=== PATIENT | female | born 1990 | race Caucasian/White ===

== ENCOUNTER 2019-05-13 15:54 | Inpatient (IN) | payer MEDICAID ==
[~2019-05-13] VITALS: Ht 144.8 cm; Wt 69.9 kg
[~2019-05-13 15:54] MED LIST: BUSP10TA23 PO; DIVA-78 PO; RISP3TAB44 PO
[2019-05-13 17:39] LABS: BASOPHILS % (AUTO) 0.6 % (0.0-2.0); EOSINOPHILS % (AUTO) 1.1 % (1.0-6.0); HEMATOCRIT 32.7 % (36-46); HEMOGLOBIN 10.5 g/dL (12.0-16.0); LYMPHOCYTES # (AUTO) 1.4 K/uL (1.0-4.8); LYMPHOCYTES % (AUTO) 29.3 % (22.0-44.0); MEAN CORPUSCULAR HEMOGLOBIN 26.5 pg (26.0-34.0); MEAN CORPUSCULAR VOLUME 83 fL (80-100); MONOCYTES # (AUTO) 0.4 K/uL (0.1-1.0); MONOCYTES % (AUTO) 8.8 % (2.0-9.0); NEUTROPHILS # (AUTO) 2.9 K/uL (1.8-7.7); NEUTROPHILS % (AUTO) 60.2 % (40.0-70.0); PLATELET COUNT (AUTO) 207 K/uL (150-450); RED BLOOD CELL COUNT(AUTO) 3.96 MIL/uL (4.00-5.20); RED CELL DISTRIBUTION WIDTH 15.3 % (11.5-14.5)
[2019-05-13 17:45] LABS: APPEARANCE,URINE CLOUDY (CLEAR); BILIRUBIN,URINE NEGATIVE (NEGATIVE); GLUCOSE, URINE (UA) NEGATIVE (NEGATIVE); KETONES,URINE NEGATIVE (NEGATIVE); LEUKOCYTE ESTERASE ,URINE NEGATIVE (NEGATIVE); NITRATE,URINE NEGATIVE (NEGATIVE); OCCULT BLOOD,URINE LARGE (NEGATIVE); PH,URINE 5.5 (5.0-8.0); PROTEIN,URINE NEGATIVE (NEGATIVE); UROBILINOGEN,URINE 0.2 mg/dL (<=1.0)
[2019-05-13 17:47] LABS: ANION GAP 5 mmol/L (8-16); CARBON DIOXIDE 29 mmol/L (22-29); CHLORIDE 104 mmol/L (98-107); CREATININE 0.74 mg/dL (0.60-1.30); GLOMERULAR FILTR. RATE CALC > 60 mL/min (>60); GLUCOSE,RANDOM 86 mg/dL (70-110); POTASSIUM 4.1 mmol/L (3.5-5.1); SODIUM SERUM 138 mmol/L (136-145); UREA NITROGEN, BLOOD 14 mg/dL (7-18)
[2019-05-13 17:52] LABS: ALANINE AMINOTRANSFERASE 10 U/L (12-78); ALBUMIN 3.9 g/dL (3.4-5.0); ALKALINE PHOSPHATASE 32 U/L (46-116); ASPARTATE AMINOTRANSFERASE 11 U/L (15-37); TOTAL PROTEIN, SERUM 6.7 g/dL (6.4-8.2)
[2019-05-13 17:54] LABS: BACTERIA,URINE Few /HPF (None Seen); SQUAMOUS EPITHELIAL CELL,UR Few /LPF (None Seen)
[2019-05-13 17:59] LABS: AMPHET/METH SCREEN,URINE NEGATIVE (NEGATIVE); BARBITURATE SCREEN, URINE NEGATIVE (NEGATIVE); BENZODIAZEPINES SCREEN,URINE NEGATIVE (NEGATIVE); CANNABINOID SCREEN,URINE NEGATIVE (NEGATIVE); COCAINE SCREEN,URINE NEGATIVE (NEGATIVE); METHADONE SCREEN, URINE NEGATIVE (NEGATIVE); OPIATE SCREEN,URINE NEGATIVE (NEGATIVE)
[2019-05-13 18:01] LABS: PHENCYCLIDINE SCREEN,URINE NEGATIVE (NEGATIVE)
[2019-05-13] MEDS ORDERED: SODIUM CHLORIDE 0.9% 2,000 ML IV ONE (20:00)
[2019-05-13] MEDS ORDERED: ZOLPIDEM TARTRATE 10 MG TABLET PO PRN (20:45)
[2019-05-13] MEDS ORDERED: HALOPERIDOL 5 MG TABLET PO PRN (20:45)
[2019-05-14 01:07] VITALS: BP 100/55
[2019-05-14 05:36] VITALS: BP 100/55
[2019-05-14 08:19] VITALS: BP 114/69
[2019-05-14] MEDS: RisperiDONE 3 MG TABLET PO SCH ×2 (10:15→16:51)
[2019-05-14] MEDS: DIVALPROEX SODIUM 500 MG DR TABLET PO SCH ×2 (10:15→16:51)
[2019-05-14] MEDS: BusPIRone HCL 10 MG TABLET PO SCH ×2 (10:15→16:51)
[2019-05-14 16:08] VITALS: BP 116/72
[2019-05-15 06:00] VITALS: BP 123/76
[2019-05-15] MEDS: BusPIRone HCL 10 MG TABLET PO SCH ×2 (08:10→16:54)
[2019-05-15] MEDS: RisperiDONE 3 MG TABLET PO SCH ×2 (08:10→16:54)
[2019-05-15] MEDS: DIVALPROEX SODIUM 500 MG DR TABLET PO SCH ×2 (08:11→16:54)
[2019-05-15 08:14] VITALS: BP 100/54
[2019-05-15 16:02] VITALS: BP 110/64
[2019-05-16 06:42] VITALS: BP 108/70
[2019-05-16 08:17] VITALS: BP 106/71
[2019-05-16] MEDS: BusPIRone HCL 10 MG TABLET PO SCH ×3 (09:00→16:00)
[2019-05-16] MEDS: DIVALPROEX SODIUM 500 MG DR TABLET PO SCH ×3 (09:00→16:00)
[2019-05-16] MEDS: RisperiDONE 3 MG TABLET PO SCH ×3 (09:00→16:00)
[2019-05-16 16:02] VITALS: BP 114/77
[2019-05-16] MEDS: LORazepam 2 MG TABLET PO PRN (16:58)
[2019-05-17 06:49] VITALS: BP 120/75
[2019-05-17 08:13] VITALS: BP 100/61
[2019-05-17] MEDS: RisperiDONE 3 MG TABLET PO SCH ×2 (09:08→17:00)
[2019-05-17] MEDS: BusPIRone HCL 10 MG TABLET PO SCH ×2 (09:08→17:00)
[2019-05-17] MEDS: DIVALPROEX SODIUM 500 MG DR TABLET PO SCH ×2 (09:08→17:00)
[2019-05-17 09:25] VITALS: BP 110/70
[2019-05-17] MEDS: LORazepam 2 MG TABLET PO PRN (09:28)
[2019-05-18 05:57] VITALS: BP 107/73
[2019-05-18] MEDS ORDERED: CloNIDine HCL 0.1 MG TABLET PO PRN (07:00)
[2019-05-18] MEDS ORDERED: PETROLATUM,WHITE 28 GM JELLY TP PRN (07:00)
[2019-05-18] MEDS ORDERED: ONDANSETRON HCL 4 MG TABLET PO PRN (07:00)
[2019-05-18] MEDS ORDERED: LOPERAMIDE HCL 2 MG CAPSULE PO PRN (07:00)
[2019-05-18] MEDS ORDERED: IBUPROFEN 400 MG TABLET PO PRN (07:00)
[2019-05-18] MEDS ORDERED: DOCUSATE SODIUM 100 MG CAPSULE PO PRN (07:00)
[2019-05-18] MEDS ORDERED: NICOTINE 14 MG/24 HOUR PATCH TD PRN (07:00)
[2019-05-18] MEDS ORDERED: ACETAMINOPHEN 325 MG TABLET PO PRN (07:00)
[2019-05-18] MEDS ORDERED: GuaiFENesin/D-METHORPHAN [SUGAR-FREE] 200-20MG/10 ML SYRUP UDCUP PO PRN (07:00)
[2019-05-18] MEDS ORDERED: MAGNESIUM HYDROXIDE SUSPENSION 30 ML UDCUP PO PRN (07:00)
[2019-05-18] MEDS ORDERED: ALBUTEROL SULFATE HFA 90 MCG/PUFF 8 GM INHALER IH PRN (07:00)
[2019-05-18] MEDS ORDERED: MAG HYDROX/AL HYDROX/SIMETH ES 30 ML SUSPENSION UDCUP PO PRN (07:00)
[2019-05-18] MEDS: BusPIRone HCL 10 MG TABLET PO SCH ×2 (08:42→17:06)
[2019-05-18] MEDS: DIVALPROEX SODIUM 500 MG DR TABLET PO SCH ×2 (08:43→17:06)
[2019-05-18] MEDS: RisperiDONE 3 MG TABLET PO SCH ×2 (08:43→17:06)
[2019-05-18] MEDS: LORazepam 2 MG TABLET PO PRN ×2 (08:43→16:15)
[2019-05-18 16:07] VITALS: BP 110/70
[2019-05-19] VITALS: BP 123/89
[2019-05-19 00:36] VITALS: BP 123/89
[2019-05-19] MEDS: BusPIRone HCL 10 MG TABLET PO SCH ×2 (08:11→09:38)
[2019-05-19] MEDS: RisperiDONE 3 MG TABLET PO SCH ×2 (08:11→09:39)
[2019-05-19] MEDS: DIVALPROEX SODIUM 500 MG DR TABLET PO SCH ×2 (08:12→09:38)
[2019-05-19 08:18] VITALS: BP 101/62
[2019-05-19] MEDS: LORazepam 2 MG TABLET PO PRN (08:59)
== END 2019-05-19 15:49 | disposition home or self-care (01) | DRG 750 ==
LOC: EMS 15:56 → B3A 20:56
DX: F25.1 Schizoaffective disorder, depressive type (principal); I95.9 Hypotension, unspecified; R45.851 Suicidal ideations; E86.0 Dehydration; D64.9 Anemia, unspecified; K59.00 Constipation, unspecified; F32.9 Major depressive disorder, single episode, unspecified; F41.9 Anxiety disorder, unspecified; R31.9 Hematuria, unspecified; Z88.0 Allergy status to penicillin; Z79.899 Other long term (current) drug therapy
CPT/HCPCS: G0480; J7030

== ENCOUNTER 2019-05-20 08:43 | Inpatient (IN) | payer MEDICAID ==
[~2019-05-20] VITALS: Ht 162.6 cm; Wt 68.9 kg
[2019-05-20] MEDS ORDERED: ZOLPIDEM TARTRATE 10 MG TABLET PO PRN (11:00)
[2019-05-20 11:28] LABS: BASOPHILS % (AUTO) 0.7 % (0.0-2.0); EOSINOPHILS % (AUTO) 0.2 % (1.0-6.0); HEMATOCRIT 35.3 % (36-46); HEMOGLOBIN 11.1 g/dL (12.0-16.0); LYMPHOCYTES # (AUTO) 1.3 K/uL (1.0-4.8); LYMPHOCYTES % (AUTO) 23.9 % (22.0-44.0); MEAN CORPUSCULAR HEMOGLOBIN 26.4 pg (26.0-34.0); MEAN CORPUSCULAR HGB CONC 31.6 G/dL (31.0-37.0); MEAN CORPUSCULAR VOLUME 84 fL (80-100); MONOCYTES # (AUTO) 0.4 K/uL (0.1-1.0); MONOCYTES % (AUTO) 7.1 % (2.0-9.0); NEUTROPHILS # (AUTO) 3.8 K/uL (1.8-7.7); NEUTROPHILS % (AUTO) 68.1 % (40.0-70.0); PLATELET COUNT (AUTO) 198 K/uL (150-450); RED BLOOD CELL COUNT(AUTO) 4.21 MIL/uL (4.00-5.20); RED CELL DISTRIBUTION WIDTH 15.2 % (11.5-14.5)
[2019-05-20 11:36] LABS: ANION GAP 9 mmol/L (8-16); CALCIUM, TOTAL 8.7 mg/dL (8.8-10.5); CARBON DIOXIDE 26 mmol/L (22-29); CHLORIDE 103 mmol/L (98-107); CREATININE 0.62 mg/dL (0.60-1.30); GLOMERULAR FILTR. RATE CALC > 60 mL/min (>60); GLUCOSE,RANDOM 88 mg/dL (70-110); POTASSIUM 4.6 mmol/L (3.5-5.1); SODIUM SERUM 138 mmol/L (136-145); UREA NITROGEN, BLOOD 11 mg/dL (7-18)
[2019-05-20 11:43] LABS: ALANINE AMINOTRANSFERASE 3 U/L (12-78); ALBUMIN 3.6 g/dL (3.4-5.0); ALKALINE PHOSPHATASE 27 U/L (46-116); ASPARTATE AMINOTRANSFERASE 6 U/L (15-37); BILIRUBIN,TOTAL 0.7 mg/dL (0.1-1.0); CREATINE KINASE, TOTAL ONLY 32 U/L (26-192); TOTAL PROTEIN, SERUM 6.4 g/dL (6.4-8.2)
[2019-05-20 14:36] VITALS: BP 100/60
[2019-05-20] MEDS ORDERED: ONDANSETRON HCL 4 MG TABLET PO PRN (14:45)
[2019-05-20] MEDS ORDERED: GuaiFENesin/D-METHORPHAN [SUGAR-FREE] 200-20MG/10 ML SYRUP UDCUP PO PRN (14:45)
[2019-05-20] MEDS ORDERED: MAGNESIUM HYDROXIDE SUSPENSION 30 ML UDCUP PO PRN (14:45)
[2019-05-20] MEDS ORDERED: ACETAMINOPHEN 325 MG TABLET PO PRN (14:45)
[2019-05-20] MEDS ORDERED: MAG HYDROX/AL HYDROX/SIMETH ES 30 ML SUSPENSION UDCUP PO PRN (14:45)
[2019-05-20] MEDS ORDERED: IBUPROFEN 400 MG TABLET PO PRN (14:45)
[2019-05-20] MEDS ORDERED: PETROLATUM,WHITE 28 GM JELLY TP PRN (14:45)
[2019-05-20] MEDS ORDERED: CloNIDine HCL 0.1 MG TABLET PO PRN (14:45)
[2019-05-20] MEDS ORDERED: NICOTINE 14 MG/24 HOUR PATCH TD PRN (14:45)
[2019-05-20] MEDS ORDERED: LOPERAMIDE HCL 2 MG CAPSULE PO PRN (14:45)
[2019-05-20] MEDS ORDERED: ALBUTEROL SULFATE HFA 90 MCG/PUFF 8 GM INHALER IH PRN (14:45)
[2019-05-20] MEDS ORDERED: DOCUSATE SODIUM 100 MG CAPSULE PO PRN (14:45)
[2019-05-20 16:09] VITALS: BP 108/69
[2019-05-20] MEDS: HALOPERIDOL 5 MG TABLET PO PRN (16:55)
[2019-05-20] MEDS: LORazepam 2 MG TABLET PO PRN (16:55)
[2019-05-21 05:30] VITALS: BP 110/72
[2019-05-21 08:08] VITALS: BP 109/66
[2019-05-21] MEDS: LORazepam 2 MG TABLET PO PRN (09:46)
[2019-05-21] MEDS: RisperiDONE 3 MG TABLET PO SCH ×2 (10:15→16:14)
[2019-05-21] MEDS: BusPIRone HCL 10 MG TABLET PO SCH ×2 (10:15→16:14)
[2019-05-21] MEDS: DIVALPROEX SODIUM 500 MG DR TABLET PO SCH ×2 (10:16→16:14)
[2019-05-21 16:08] VITALS: BP 105/53
[2019-05-22 07:39] LABS: BASOPHILS % (AUTO) 0.5 % (0.0-2.0); EOSINOPHILS % (AUTO) 1.1 % (1.0-6.0); HEMATOCRIT 37.6 % (36-46); HEMOGLOBIN 11.8 g/dL (12.0-16.0); LYMPHOCYTES # (AUTO) 1.4 K/uL (1.0-4.8); LYMPHOCYTES % (AUTO) 32.7 % (22.0-44.0); MEAN CORPUSCULAR HEMOGLOBIN 26.4 pg (26.0-34.0); MEAN CORPUSCULAR HGB CONC 31.3 G/dL (31.0-37.0); MEAN CORPUSCULAR VOLUME 84 fL (80-100); MONOCYTES # (AUTO) 0.3 K/uL (0.1-1.0); NEUTROPHILS # (AUTO) 2.6 K/uL (1.8-7.7); NEUTROPHILS % (AUTO) 58.7 % (40.0-70.0); PLATELET COUNT (AUTO) 160 K/uL (150-450); RED BLOOD CELL COUNT(AUTO) 4.46 MIL/uL (4.00-5.20); RED CELL DISTRIBUTION WIDTH 15.3 % (11.5-14.5)
[2019-05-22 07:45] LABS: HEMOGLOBIN A1C 4.9 % (4.5-6.2)
[2019-05-22 08:00] LABS: ALANINE AMINOTRANSFERASE 7 U/L (12-78); ALBUMIN 3.6 g/dL (3.4-5.0); ALKALINE PHOSPHATASE 31 U/L (46-116); ANION GAP 8 mmol/L (8-16); ASPARTATE AMINOTRANSFERASE 9 U/L (15-37); BILIRUBIN,TOTAL 0.5 mg/dL (0.1-1.0); CALCIUM, TOTAL 8.7 mg/dL (8.8-10.5); CARBON DIOXIDE 28 mmol/L (22-29); CHLORIDE 102 mmol/L (98-107); CHOL/HDL RATIO 2.6 (3.9-5.7); CHOLESTEROL 118 mg/dL (131-200); CREATININE 0.58 mg/dL (0.60-1.30); GLOMERULAR FILTR. RATE CALC > 60 mL/min (>60); GLUCOSE,RANDOM 84 mg/dL (70-110); HDL CHOLESTEROL 45 mg/dL (40-60); LDL CHOL (CALC.) 67 mg/dL (0-130); POTASSIUM 4.6 mmol/L (3.5-5.1); SODIUM SERUM 138 mmol/L (136-145); THYROID STIMULATING HORMONE 2.19 uIU/mL (0.36-3.74); TOTAL PROTEIN, SERUM 6.3 g/dL (6.4-8.2); TRIGLYCERIDES 30 mg/dL (15-150); UREA NITROGEN, BLOOD 12 mg/dL (7-18)
[2019-05-22 08:07] VITALS: BP 102/66
[2019-05-22] MEDS: BusPIRone HCL 10 MG TABLET PO SCH ×2 (08:50→16:15)
[2019-05-22] MEDS: DIVALPROEX SODIUM 500 MG DR TABLET PO SCH ×2 (08:50→16:15)
[2019-05-22] MEDS: RisperiDONE 3 MG TABLET PO SCH ×2 (08:50→16:15)
[2019-05-22] MEDS: LORazepam 2 MG TABLET PO PRN ×2 (09:53→17:29)
[2019-05-22 16:05] VITALS: BP 121/86
[2019-05-22] MEDS: HALOPERIDOL 5 MG TABLET PO PRN (17:29)
[2019-05-23 06:31] VITALS: BP 118/78
[2019-05-23 08:18] VITALS: BP 114/66
[2019-05-23] MEDS: DIVALPROEX SODIUM 500 MG DR TABLET PO SCH ×2 (09:14→16:09)
[2019-05-23] MEDS: BusPIRone HCL 10 MG TABLET PO SCH ×2 (09:14→16:08)
[2019-05-23] MEDS: RisperiDONE 3 MG TABLET PO SCH ×2 (09:15→16:08)
[2019-05-23] MEDS: LORazepam 2 MG TABLET PO PRN (11:55)
[2019-05-23] MEDS: CITALOPRAM HYDROBROMIDE 10 MG TABLET PO SCH (11:55)
[2019-05-23 16:02] VITALS: BP 120/68
[2019-05-24] MEDS: CITALOPRAM HYDROBROMIDE 10 MG TABLET PO SCH (09:00)
[2019-05-24] MEDS: BusPIRone HCL 10 MG TABLET PO SCH ×2 (09:00→16:00)
[2019-05-24] MEDS: RisperiDONE 3 MG TABLET PO SCH ×2 (09:00→16:00)
[2019-05-24] MEDS: DIVALPROEX SODIUM 500 MG DR TABLET PO SCH ×2 (09:00→16:00)
[2019-05-24 09:25] VITALS: BP 102/62
[2019-05-24 16:04] VITALS: BP 110/70
[2019-05-25 07:09] VITALS: BP 117/65
[2019-05-25 08:20] VITALS: BP 107/62
[2019-05-25] MEDS: RisperiDONE 3 MG TABLET PO SCH ×2 (09:40→16:21)
[2019-05-25] MEDS: CITALOPRAM HYDROBROMIDE 10 MG TABLET PO SCH (09:40)
[2019-05-25] MEDS: BusPIRone HCL 10 MG TABLET PO SCH ×2 (09:40→16:21)
[2019-05-25] MEDS: DIVALPROEX SODIUM 500 MG DR TABLET PO SCH ×2 (09:40→16:21)
[2019-05-25 16:04] VITALS: BP 106/65
[2019-05-25] MEDS: LORazepam 2 MG TABLET PO PRN (16:21)
[2019-05-25] MEDS: HALOPERIDOL 5 MG TABLET PO PRN (16:40)
[2019-05-26 06:53] VITALS: BP 112/64
[2019-05-26 08:12] VITALS: BP 106/65
[2019-05-26] MEDS: BusPIRone HCL 10 MG TABLET PO SCH ×2 (09:00→16:39)
[2019-05-26] MEDS: DIVALPROEX SODIUM 500 MG DR TABLET PO SCH ×2 (09:00→16:39)
[2019-05-26] MEDS: CITALOPRAM HYDROBROMIDE 10 MG TABLET PO SCH (09:00)
[2019-05-26] MEDS: RisperiDONE 3 MG TABLET PO SCH ×2 (09:00→16:39)
[2019-05-26 16:08] VITALS: BP 106/64
[2019-05-26] MEDS: LORazepam 2 MG TABLET PO PRN (16:39)
[2019-05-26] MEDS: HALOPERIDOL 5 MG TABLET PO PRN (16:39)
[2019-05-27 02:37] VITALS: BP 112/82
[2019-05-27 08:17] VITALS: BP 106/63
[2019-05-27 09:45] VITALS: BP 110/72
[2019-05-27] MEDS: BusPIRone HCL 10 MG TABLET PO SCH ×2 (09:47→16:43)
[2019-05-27] MEDS: LORazepam 2 MG TABLET PO PRN (09:47)
[2019-05-27] MEDS: DIVALPROEX SODIUM 500 MG DR TABLET PO SCH ×2 (09:47→16:42)
[2019-05-27] MEDS: CITALOPRAM HYDROBROMIDE 10 MG TABLET PO SCH (09:47)
[2019-05-27] MEDS: RisperiDONE 3 MG TABLET PO SCH ×2 (09:47→16:42)
[2019-05-27 16:05] VITALS: BP 100/67
[2019-05-27 16:37] VITALS: BP 102/56
[2019-05-28 06:26] VITALS: BP 110/68
[2019-05-28 08:06] VITALS: BP 106/71
[2019-05-28] MEDS: RisperiDONE 3 MG TABLET PO SCH ×2 (09:31→16:13)
[2019-05-28] MEDS: CITALOPRAM HYDROBROMIDE 10 MG TABLET PO SCH (09:31)
[2019-05-28] MEDS: BusPIRone HCL 10 MG TABLET PO SCH ×2 (09:31→16:13)
[2019-05-28] MEDS: DIVALPROEX SODIUM 500 MG DR TABLET PO SCH ×2 (09:31→16:13)
[2019-05-28] MEDS: LORazepam 2 MG TABLET PO PRN (10:13)
[2019-05-28] MEDS ORDERED: CITA10TA68 PO (14:27)
[2019-05-28 16:07] VITALS: BP 100/67
== END 2019-05-28 16:50 | disposition home or self-care (01) | DRG 750 ==
LOC: EMS 08:44 → B3A 12:17
PROVIDERS: ADMIT Psychiatry & Neurology Psychiatry
DX: F25.1 Schizoaffective disorder, depressive type (principal); R45.851 Suicidal ideations; F70 Mild intellectual disabilities; D64.9 Anemia, unspecified; K59.00 Constipation, unspecified; D72.819 Decreased white blood cell count, unspecified; Z79.899 Other long term (current) drug therapy; Z88.0 Allergy status to penicillin
CPT/HCPCS: 83036; 84443; 87081; G0480

== ENCOUNTER 2019-06-01 17:00 | Inpatient (IN) | payer MEDICAID ==
[~2019-06-01] VITALS: Ht 162.6 cm; Wt 69.2 kg
[~2019-06-01 17:00] MED LIST changes: +CITA10TA68 PO
[2019-06-01 18:57] LABS: AMPHET/METH SCREEN,URINE NEGATIVE (NEGATIVE); BARBITURATE SCREEN, URINE NEGATIVE (NEGATIVE); BENZODIAZEPINES SCREEN,URINE NEGATIVE (NEGATIVE); CANNABINOID SCREEN,URINE NEGATIVE (NEGATIVE); COCAINE SCREEN,URINE NEGATIVE (NEGATIVE); METHADONE SCREEN, URINE NEGATIVE (NEGATIVE); OPIATE SCREEN,URINE NEGATIVE (NEGATIVE)
[2019-06-01 19:04] LABS: PHENCYCLIDINE SCREEN,URINE NEGATIVE (NEGATIVE)
[2019-06-01 19:13] LABS: BASOPHILS % (AUTO) 0.6 % (0.0-2.0); EOSINOPHILS % (AUTO) 0.6 % (1.0-6.0); HEMATOCRIT 34.9 % (36-46); HEMOGLOBIN 11.1 g/dL (12.0-16.0); LYMPHOCYTES # (AUTO) 1.3 K/uL (1.0-4.8); LYMPHOCYTES % (AUTO) 20.6 % (22.0-44.0); MEAN CORPUSCULAR HEMOGLOBIN 26.9 pg (26.0-34.0); MEAN CORPUSCULAR HGB CONC 31.8 G/dL (31.0-37.0); MEAN CORPUSCULAR VOLUME 85 fL (80-100); MONOCYTES # (AUTO) 0.7 K/uL (0.1-1.0); MONOCYTES % (AUTO) 12.1 % (2.0-9.0); NEUTROPHILS # (AUTO) 4.1 K/uL (1.8-7.7); NEUTROPHILS % (AUTO) 66.1 % (40.0-70.0); PLATELET COUNT (AUTO) 163 K/uL (150-450); RED BLOOD CELL COUNT(AUTO) 4.12 MIL/uL (4.00-5.20); RED CELL DISTRIBUTION WIDTH 15.2 % (11.5-14.5)
[2019-06-01 19:23] LABS: ANION GAP 9 mmol/L (8-16); CALCIUM, TOTAL 9.3 mg/dL (8.8-10.5); CARBON DIOXIDE 26 mmol/L (22-29); CHLORIDE 104 mmol/L (98-107); CREATININE 0.69 mg/dL (0.60-1.30); GLOMERULAR FILTR. RATE CALC > 60 mL/min (>60); GLUCOSE,RANDOM 103 mg/dL (70-110); POTASSIUM 4.2 mmol/L (3.5-5.1); SODIUM SERUM 139 mmol/L (136-145); UREA NITROGEN, BLOOD 15 mg/dL (7-18)
[2019-06-01 19:34] LABS: ALANINE AMINOTRANSFERASE 8 U/L (12-78); ALBUMIN 3.6 g/dL (3.4-5.0); ALKALINE PHOSPHATASE 30 U/L (46-116); ASPARTATE AMINOTRANSFERASE 8 U/L (15-37); BILIRUBIN,TOTAL 0.3 mg/dL (0.1-1.0); HCG,QUANTITATIVE < 1 mIU/mL (0-6); TOTAL PROTEIN, SERUM 6.5 g/dL (6.4-8.2); VALPROIC ACID 51 mcg/mL (50-100)
[2019-06-01 22:40] VITALS: BP 106/66
[2019-06-02 06:56] VITALS: BP 110/64
[2019-06-02 08:08] VITALS: BP 100/59
[2019-06-02 09:00] VITALS: BP 110/74
[2019-06-02] MEDS: LORazepam 2 MG TABLET PO PRN ×2 (09:00→16:11)
[2019-06-02] MEDS: RisperiDONE 3 MG TABLET PO SCH ×2 (10:46→20:30)
[2019-06-02] MEDS: BusPIRone HCL 10 MG TABLET PO SCH ×2 (10:46→20:30)
[2019-06-02] MEDS: CITALOPRAM HYDROBROMIDE 10 MG TABLET PO SCH (10:46)
[2019-06-02] MEDS: DIVALPROEX SODIUM 500 MG DR TABLET PO SCH ×2 (10:47→20:30)
[2019-06-02 16:10] VITALS: BP 97/63
[2019-06-03 08:10] VITALS: BP 131/64
[2019-06-03 08:33] LABS: CHOL/HDL RATIO 2.8 (3.9-5.7)
[2019-06-03] MEDS: BusPIRone HCL 10 MG TABLET PO SCH ×2 (08:49→20:24)
[2019-06-03] MEDS: RisperiDONE 3 MG TABLET PO SCH ×2 (08:50→20:24)
[2019-06-03] MEDS: DIVALPROEX SODIUM 500 MG DR TABLET PO SCH ×2 (08:50→20:24)
[2019-06-03] MEDS: CITALOPRAM HYDROBROMIDE 10 MG TABLET PO SCH (08:50)
[2019-06-03 16:08] VITALS: BP 119/71
[2019-06-03] MEDS: HALOPERIDOL 5 MG TABLET PO PRN (16:31)
[2019-06-03] MEDS: LORazepam 2 MG TABLET PO PRN (16:31)
[2019-06-03] MEDS: ZOLPIDEM TARTRATE 10 MG TABLET PO PRN (20:24)
[2019-06-04 06:16] VITALS: BP 127/70
[2019-06-04 08:16] VITALS: BP 100/56
[2019-06-04] MEDS: BusPIRone HCL 10 MG TABLET PO SCH ×2 (08:49→21:00)
[2019-06-04] MEDS: DIVALPROEX SODIUM 500 MG DR TABLET PO SCH ×2 (08:49→21:00)
[2019-06-04] MEDS: RisperiDONE 3 MG TABLET PO SCH ×2 (08:49→21:00)
[2019-06-04] MEDS: CITALOPRAM HYDROBROMIDE 10 MG TABLET PO SCH (08:49)
[2019-06-04 16:00] VITALS: BP 105/64
[2019-06-05 06:14] VITALS: BP 110/72
[2019-06-05 08:20] VITALS: BP 100/62
[2019-06-05] MEDS: CITALOPRAM HYDROBROMIDE 10 MG TABLET PO SCH (08:21)
[2019-06-05] MEDS: BusPIRone HCL 10 MG TABLET PO SCH ×2 (08:21→20:11)
[2019-06-05] MEDS: RisperiDONE 3 MG TABLET PO SCH ×2 (08:21→20:11)
[2019-06-05] MEDS: DIVALPROEX SODIUM 500 MG DR TABLET PO SCH ×2 (08:21→20:11)
[2019-06-05 16:09] VITALS: BP 104/65
[2019-06-06 06:46] VITALS: BP 101/62
[2019-06-06 08:14] VITALS: BP 100/54
[2019-06-06] MEDS: BusPIRone HCL 10 MG TABLET PO SCH ×2 (08:27→20:27)
[2019-06-06] MEDS: CITALOPRAM HYDROBROMIDE 10 MG TABLET PO SCH (08:27)
[2019-06-06] MEDS: DIVALPROEX SODIUM 500 MG DR TABLET PO SCH ×2 (08:27→20:27)
[2019-06-06] MEDS: RisperiDONE 3 MG TABLET PO SCH ×2 (08:27→20:27)
[2019-06-06 10:30] VITALS: BP 116/74
[2019-06-06 16:00] VITALS: BP 107/64
[2019-06-06] MEDS: LORazepam 2 MG TABLET PO PRN (18:54)
[2019-06-06] MEDS: ZOLPIDEM TARTRATE 10 MG TABLET PO PRN (20:27)
[2019-06-07 06:41] VITALS: BP 99/60
[2019-06-07 08:12] VITALS: BP 119/64
[2019-06-07] MEDS: DIVALPROEX SODIUM 500 MG DR TABLET PO SCH ×2 (08:18→20:06)
[2019-06-07] MEDS: BusPIRone HCL 10 MG TABLET PO SCH ×2 (08:18→20:06)
[2019-06-07] MEDS: RisperiDONE 3 MG TABLET PO SCH ×2 (08:18→21:34)
[2019-06-07] MEDS: CITALOPRAM HYDROBROMIDE 10 MG TABLET PO SCH (08:18)
[2019-06-07 16:30] VITALS: BP 107/60
[2019-06-08 08:07] VITALS: BP 107/71
[2019-06-08] MEDS: DIVALPROEX SODIUM 500 MG DR TABLET PO SCH ×2 (09:10→20:52)
[2019-06-08] MEDS: BusPIRone HCL 10 MG TABLET PO SCH ×2 (09:11→20:51)
[2019-06-08] MEDS: RisperiDONE 3 MG TABLET PO SCH ×2 (09:11→20:51)
[2019-06-08] MEDS: CITALOPRAM HYDROBROMIDE 10 MG TABLET PO SCH (09:11)
[2019-06-08 16:05] VITALS: BP 99/56
[2019-06-08] MEDS: ZOLPIDEM TARTRATE 10 MG TABLET PO PRN (20:51)
[2019-06-09 06:23] VITALS: BP 102/61
[2019-06-09] MEDS: RisperiDONE 3 MG TABLET PO SCH ×2 (08:09→20:42)
[2019-06-09] MEDS: BusPIRone HCL 10 MG TABLET PO SCH ×2 (08:09→20:42)
[2019-06-09] MEDS: DIVALPROEX SODIUM 500 MG DR TABLET PO SCH ×2 (08:09→20:42)
[2019-06-09] MEDS: CITALOPRAM HYDROBROMIDE 10 MG TABLET PO SCH (08:09)
[2019-06-09 08:18] VITALS: BP 100/63
[2019-06-09 16:18] VITALS: BP 109/65
[2019-06-09] MEDS: LORazepam 2 MG TABLET PO PRN (16:43)
[2019-06-09] MEDS: HALOPERIDOL 5 MG TABLET PO PRN (16:43)
[2019-06-09] MEDS: ZOLPIDEM TARTRATE 10 MG TABLET PO PRN (20:42)
[2019-06-10 06:41] VITALS: BP 103/60
[2019-06-10 08:36] VITALS: BP 116/72
[2019-06-10] MEDS: RisperiDONE 3 MG TABLET PO SCH ×2 (08:39→20:22)
[2019-06-10] MEDS: CITALOPRAM HYDROBROMIDE 10 MG TABLET PO SCH (08:39)
[2019-06-10] MEDS: BusPIRone HCL 10 MG TABLET PO SCH ×2 (08:39→20:22)
[2019-06-10] MEDS: DIVALPROEX SODIUM 500 MG DR TABLET PO SCH ×2 (08:39→20:22)
[2019-06-10 18:46] VITALS: BP 99/67
[2019-06-11 06:14] VITALS: BP 104/63
[2019-06-11 08:27] VITALS: BP 111/64
[2019-06-11] MEDS: RisperiDONE 3 MG TABLET PO SCH ×2 (08:54→20:31)
[2019-06-11] MEDS: CITALOPRAM HYDROBROMIDE 10 MG TABLET PO SCH (08:54)
[2019-06-11] MEDS: BusPIRone HCL 10 MG TABLET PO SCH ×2 (08:54→20:31)
[2019-06-11] MEDS: DIVALPROEX SODIUM 500 MG DR TABLET PO SCH ×2 (08:54→20:31)
[2019-06-11 16:11] VITALS: BP 100/58
[2019-06-12 06:11] VITALS: BP 102/63
[2019-06-12] MEDS: RisperiDONE 3 MG TABLET PO SCH (09:29)
[2019-06-12] MEDS: CITALOPRAM HYDROBROMIDE 10 MG TABLET PO SCH (09:29)
[2019-06-12] MEDS: DIVALPROEX SODIUM 500 MG DR TABLET PO SCH (09:29)
[2019-06-12] MEDS: BusPIRone HCL 10 MG TABLET PO SCH (09:29)
[2019-06-12] MEDS: LORazepam 2 MG TABLET PO PRN (09:29)
[2019-06-12 09:43] VITALS: BP 132/71
[2019-06-12] MEDS ORDERED: CITA10TA68 PO (11:20)
[2019-06-12] MEDS ORDERED: RISP3 PO (11:20)
[2019-06-12] MEDS ORDERED: DIVA-78 PO (11:20)
[2019-06-12] MEDS ORDERED: BUSP10TA23 PO (11:20)
[2019-06-12 16:23] VITALS: BP 100/60
== END 2019-06-12 18:25 | disposition home or self-care (01) | DRG 750 ==
LOC: EMS 17:02 → B3A 21:05
DX: F25.1 Schizoaffective disorder, depressive type (principal); I95.9 Hypotension, unspecified; R45.850 Homicidal ideations; R45.851 Suicidal ideations; F79 Unspecified intellectual disabilities; D64.9 Anemia, unspecified; K59.00 Constipation, unspecified; R51 Headache; Z79.899 Other long term (current) drug therapy; Z91.5 Personal history of self-harm; Z88.0 Allergy status to penicillin
CPT/HCPCS: 87081; G0480

== ENCOUNTER 2019-06-25 19:56 | Inpatient (IN) | payer MEDICARE, MEDICAID ==
[~2019-06-25] VITALS: Ht 160 cm; Wt 67.1 kg
[~2019-06-25 19:56] MED LIST changes: +RISP3 PO; -RISP3TAB44 PO
[2019-06-25 20:39] LABS: BASOPHILS % (AUTO) 0.3 % (0.0-2.0); EOSINOPHILS % (AUTO) 0.6 % (1.0-6.0); HEMATOCRIT 33.6 % (36-46); LYMPHOCYTES # (AUTO) 1.4 K/uL (1.0-4.8); LYMPHOCYTES % (AUTO) 29.6 % (22.0-44.0); MEAN CORPUSCULAR HEMOGLOBIN 27.8 pg (26.0-34.0); MEAN CORPUSCULAR HGB CONC 32.8 G/dL (31.0-37.0); MEAN CORPUSCULAR VOLUME 85 fL (80-100); MONOCYTES # (AUTO) 0.6 K/uL (0.1-1.0); MONOCYTES % (AUTO) 13.4 % (2.0-9.0); NEUTROPHILS # (AUTO) 2.6 K/uL (1.8-7.7); NEUTROPHILS % (AUTO) 56.1 % (40.0-70.0); PLATELET COUNT (AUTO) 151 K/uL (150-450); RED BLOOD CELL COUNT(AUTO) 3.96 MIL/uL (4.00-5.20); RED CELL DISTRIBUTION WIDTH 15.8 % (11.5-14.5)
[2019-06-25 20:59] LABS: ANION GAP 4 mmol/L (8-16); CALCIUM, TOTAL 8.7 mg/dL (8.8-10.5); CARBON DIOXIDE 32 mmol/L (22-29); CHLORIDE 104 mmol/L (98-107); CREATININE 0.71 mg/dL (0.60-1.30); GLOMERULAR FILTR. RATE CALC > 60 mL/min (>60); GLUCOSE,RANDOM 86 mg/dL (70-110); POTASSIUM 4.1 mmol/L (3.5-5.1); SODIUM SERUM 140 mmol/L (136-145); UREA NITROGEN, BLOOD 14 mg/dL (7-18)
[2019-06-25 21:12] LABS: ALANINE AMINOTRANSFERASE 12 U/L (12-78); ALBUMIN 3.4 g/dL (3.4-5.0); ALKALINE PHOSPHATASE 24 U/L (46-116); ASPARTATE AMINOTRANSFERASE 7 U/L (15-37); BILIRUBIN,TOTAL 0.4 mg/dL (0.1-1.0); HCG,QUANTITATIVE < 1 mIU/mL (0-6); VALPROIC ACID 48 mcg/mL (50-100)
[2019-06-25 21:18] LABS: AMPHET/METH SCREEN,URINE NEGATIVE (NEGATIVE); BARBITURATE SCREEN, URINE NEGATIVE (NEGATIVE); BENZODIAZEPINES SCREEN,URINE NEGATIVE (NEGATIVE); CANNABINOID SCREEN,URINE NEGATIVE (NEGATIVE); COCAINE SCREEN,URINE NEGATIVE (NEGATIVE); METHADONE SCREEN, URINE NEGATIVE (NEGATIVE); OPIATE SCREEN,URINE NEGATIVE (NEGATIVE); PHENCYCLIDINE SCREEN,URINE NEGATIVE (NEGATIVE)
[2019-06-26] MEDS ORDERED: QUEtiapine FUMARATE 100 MG TABLET PO PRN (01:00)
[2019-06-26 02:55] VITALS: BP 106/68
[2019-06-26] MEDS ORDERED: INFLUENZA VIRUS VACCINE QVS 2019-20 (3YR+)/PF 60 MCG/0.5 ML SYRINGE IM ONE (03:45)
[2019-06-26 08:26] VITALS: BP 104/76
[2019-06-26 08:38] LABS: HEMOGLOBIN A1C 4.9 % (4.5-6.2)
[2019-06-26 09:00] LABS: CHOL/HDL RATIO 2.5 (3.9-5.7); FREE T4 (FREE THYROXINE) 0.96 ng/dL (0.76-1.46); THYROID STIMULATING HORMONE 2.19 uIU/mL (0.36-3.74)
[2019-06-26] MEDS ORDERED: ACETAMINOPHEN 325 MG TABLET PO PRN (11:15)
[2019-06-26] MEDS ORDERED: IBUPROFEN 400 MG TABLET PO PRN (11:15)
[2019-06-26] MEDS ORDERED: NICOTINE 14 MG/24 HOUR PATCH TD PRN (11:15)
[2019-06-26] MEDS ORDERED: LOPERAMIDE HCL 2 MG CAPSULE PO PRN (11:15)
[2019-06-26] MEDS ORDERED: CloNIDine HCL 0.1 MG TABLET PO PRN (11:15)
[2019-06-26] MEDS ORDERED: MAGNESIUM HYDROXIDE SUSPENSION 30 ML UDCUP PO PRN (11:15)
[2019-06-26] MEDS ORDERED: DOCUSATE SODIUM 100 MG CAPSULE PO PRN (11:15)
[2019-06-26] MEDS ORDERED: GuaiFENesin/D-METHORPHAN [SUGAR-FREE] 200-20MG/10 ML SYRUP UDCUP PO PRN (11:15)
[2019-06-26] MEDS ORDERED: PETROLATUM,WHITE 28 GM JELLY TP PRN (11:15)
[2019-06-26] MEDS ORDERED: ONDANSETRON HCL 4 MG TABLET PO PRN (11:15)
[2019-06-26] MEDS ORDERED: ALBUTEROL SULFATE HFA 90 MCG/PUFF 8 GM INHALER IH PRN (11:15)
[2019-06-26] MEDS ORDERED: MAG HYDROX/AL HYDROX/SIMETH ES 30 ML SUSPENSION UDCUP PO PRN (11:15)
[2019-06-26] MEDS: BusPIRone HCL 10 MG TABLET PO SCH ×2 (12:43→20:34)
[2019-06-26] MEDS: DIVALPROEX SODIUM 500 MG DR TABLET PO SCH ×2 (12:43→20:34)
[2019-06-26] MEDS: CITALOPRAM HYDROBROMIDE 10 MG TABLET PO SCH (12:44)
[2019-06-26] MEDS: RisperiDONE 3 MG TABLET PO SCH ×2 (12:44→20:34)
[2019-06-26 16:35] VITALS: BP 105/62
[2019-06-27 06:44] VITALS: BP 102/63
[2019-06-27 08:24] VITALS: BP 108/66
[2019-06-27] MEDS: RisperiDONE 3 MG TABLET PO SCH ×2 (08:39→20:16)
[2019-06-27] MEDS: DIVALPROEX SODIUM 500 MG DR TABLET PO SCH ×2 (08:39→20:16)
[2019-06-27] MEDS: BusPIRone HCL 10 MG TABLET PO SCH ×2 (08:40→20:17)
[2019-06-27] MEDS: CITALOPRAM HYDROBROMIDE 10 MG TABLET PO SCH (08:40)
[2019-06-27 16:12] VITALS: BP 110/78
[2019-06-28 07:15] VITALS: BP 118/70
[2019-06-28] MEDS: BusPIRone HCL 10 MG TABLET PO SCH ×2 (08:57→20:29)
[2019-06-28] MEDS: RisperiDONE 3 MG TABLET PO SCH ×2 (08:57→20:29)
[2019-06-28] MEDS: DIVALPROEX SODIUM 500 MG DR TABLET PO SCH ×2 (08:57→20:29)
[2019-06-28] MEDS: CITALOPRAM HYDROBROMIDE 10 MG TABLET PO SCH (08:57)
[2019-06-28 10:44] VITALS: BP 95/53
[2019-06-28 16:54] VITALS: BP 96/55
[2019-06-29 00:10] VITALS: BP 101/66
[2019-06-29] MEDS: CITALOPRAM HYDROBROMIDE 10 MG TABLET PO SCH (08:03)
[2019-06-29] MEDS: RisperiDONE 3 MG TABLET PO SCH ×2 (08:03→20:29)
[2019-06-29] MEDS: DIVALPROEX SODIUM 500 MG DR TABLET PO SCH ×2 (08:03→20:29)
[2019-06-29] MEDS: BusPIRone HCL 10 MG TABLET PO SCH ×2 (08:03→20:29)
[2019-06-29 08:30] VITALS: BP 94/64
[2019-06-29 17:08] VITALS: BP 96/67
[2019-06-30 06:52] VITALS: BP 100/78
[2019-06-30 08:10] VITALS: BP 105/68
[2019-06-30] MEDS: BusPIRone HCL 10 MG TABLET PO SCH ×2 (08:36→20:31)
[2019-06-30] MEDS: DIVALPROEX SODIUM 500 MG DR TABLET PO SCH ×2 (08:36→20:31)
[2019-06-30] MEDS: CITALOPRAM HYDROBROMIDE 20 MG TABLET PO SCH (08:36)
[2019-06-30] MEDS: RisperiDONE 3 MG TABLET PO SCH ×2 (08:37→20:31)
[2019-06-30] MEDS ORDERED: PALIPERIDONE PALMITATE 234 MG/1.5 ML SYRINGE IM ONE (10:00)
[2019-06-30 16:44] VITALS: BP 102/67
[2019-07-01 01:52] VITALS: BP 100/61
[2019-07-01] MEDS: BusPIRone HCL 10 MG TABLET PO SCH ×2 (08:10→20:35)
[2019-07-01] MEDS: DIVALPROEX SODIUM 500 MG DR TABLET PO SCH ×2 (08:10→20:35)
[2019-07-01] MEDS: RisperiDONE 3 MG TABLET PO SCH ×2 (08:10→20:35)
[2019-07-01] MEDS: CITALOPRAM HYDROBROMIDE 20 MG TABLET PO SCH (08:10)
[2019-07-01 08:16] VITALS: BP 107/64
[2019-07-01 16:01] VITALS: BP 102/62
[2019-07-02 00:20] VITALS: BP 106/68
[2019-07-02] MEDS: DIVALPROEX SODIUM 500 MG DR TABLET PO SCH ×2 (08:35→20:46)
[2019-07-02] MEDS: CITALOPRAM HYDROBROMIDE 20 MG TABLET PO SCH (08:35)
[2019-07-02] MEDS: BusPIRone HCL 10 MG TABLET PO SCH ×2 (08:35→20:46)
[2019-07-02] MEDS: RisperiDONE 3 MG TABLET PO SCH ×2 (08:35→20:46)
[2019-07-02 08:43] VITALS: BP 122/79
[2019-07-02 16:03] VITALS: BP 107/67
[2019-07-03 07:32] VITALS: BP_SYST 110; BP_DIAS 64; BP_DIAS 68
[2019-07-03 08:14] VITALS: BP 108/72
[2019-07-03] MEDS: MULTIVITAMINS WITH IRON TABLET PO SCH (08:32)
[2019-07-03] MEDS: LORazepam 2 MG TABLET PO PRN (08:32)
[2019-07-03] MEDS: BusPIRone HCL 10 MG TABLET PO SCH ×2 (08:32→20:16)
[2019-07-03] MEDS: DIVALPROEX SODIUM 500 MG DR TABLET PO SCH ×2 (08:33→20:16)
[2019-07-03] MEDS: RisperiDONE 3 MG TABLET PO SCH ×2 (08:33→20:16)
[2019-07-03] MEDS: CITALOPRAM HYDROBROMIDE 20 MG TABLET PO SCH (08:33)
[2019-07-03 16:52] VITALS: BP 102/60
[2019-07-03] MEDS: ZOLPIDEM TARTRATE 10 MG TABLET PO PRN (21:46)
[2019-07-04 01:15] VITALS: BP 106/70
[2019-07-04 08:11] VITALS: BP 108/66
[2019-07-04] MEDS: MULTIVITAMINS WITH IRON TABLET PO SCH (08:36)
[2019-07-04] MEDS: BusPIRone HCL 10 MG TABLET PO SCH ×2 (08:36→20:11)
[2019-07-04] MEDS: CITALOPRAM HYDROBROMIDE 20 MG TABLET PO SCH (08:36)
[2019-07-04] MEDS: RisperiDONE 3 MG TABLET PO SCH ×2 (08:36→20:11)
[2019-07-04] MEDS: DIVALPROEX SODIUM 500 MG DR TABLET PO SCH ×2 (08:36→20:11)
[2019-07-04] MEDS ORDERED: PALIPERIDONE PALMITATE 156 MG/ML SYRINGE IM ONE (09:00)
[2019-07-04 16:03] VITALS: BP 96/61
[2019-07-05 00:37] VITALS: BP 110/68
[2019-07-05] MEDS: MULTIVITAMINS WITH IRON TABLET PO SCH (08:30)
[2019-07-05] MEDS: BusPIRone HCL 10 MG TABLET PO SCH ×2 (08:30→20:01)
[2019-07-05] MEDS: RisperiDONE 3 MG TABLET PO SCH ×2 (08:30→20:01)
[2019-07-05] MEDS: CITALOPRAM HYDROBROMIDE 20 MG TABLET PO SCH (08:30)
[2019-07-05] MEDS: DIVALPROEX SODIUM 500 MG DR TABLET PO SCH ×2 (08:30→20:01)
[2019-07-05 10:48] VITALS: BP 103/62
[2019-07-06] MEDS: CITALOPRAM HYDROBROMIDE 20 MG TABLET PO SCH (09:13)
[2019-07-06] MEDS: MULTIVITAMINS WITH IRON TABLET PO SCH (09:13)
[2019-07-06] MEDS: RisperiDONE 3 MG TABLET PO SCH ×2 (09:13→20:59)
[2019-07-06] MEDS: BusPIRone HCL 10 MG TABLET PO SCH ×2 (09:13→20:59)
[2019-07-06] MEDS: DIVALPROEX SODIUM 500 MG DR TABLET PO SCH ×2 (09:13→20:59)
[2019-07-06 16:03] VITALS: BP 118/66
[2019-07-06] MEDS: LORazepam 2 MG TABLET PO PRN (16:27)
[2019-07-06] MEDS: ZOLPIDEM TARTRATE 10 MG TABLET PO PRN (20:59)
[2019-07-07 05:15] VITALS: BP 126/74
[2019-07-07] MEDS: DIVALPROEX SODIUM 500 MG DR TABLET PO SCH ×2 (08:22→09:00)
[2019-07-07] MEDS: BusPIRone HCL 10 MG TABLET PO SCH (08:23)
[2019-07-07] MEDS: MULTIVITAMINS WITH IRON TABLET PO SCH (08:23)
[2019-07-07] MEDS: CITALOPRAM HYDROBROMIDE 20 MG TABLET PO SCH (08:23)
[2019-07-07] MEDS: RisperiDONE 3 MG TABLET PO SCH (08:23)
[2019-07-07] MEDS ORDERED: MULT-199 PO (08:36)
[2019-07-07] MEDS ORDERED: CITA-106 PO (08:46)
[2019-07-07] MEDS ORDERED: BUSP10TA23 PO (09:41)
[2019-07-07] MEDS ORDERED: DIVA-78 PO (09:41)
[2019-07-07] MEDS ORDERED: RISP3 PO ×2 (09:45→12:27)
[2019-07-07] MEDS ORDERED: [UNRECOGNIZED DRUG - CODE] PO (12:28)
[2019-07-07 16:03] VITALS: BP 101/65
== END 2019-07-07 18:10 | disposition home or self-care (01) | DRG 885 ==
LOC: EMS 19:58 → B2X 06-26 01:00
DX: F25.1 Schizoaffective disorder, depressive type (principal); F79 Unspecified intellectual disabilities; R45.851 Suicidal ideations; D64.9 Anemia, unspecified; G44.209 Tension-type headache, unspecified, not intractable; I95.9 Hypotension, unspecified; Z79.899 Other long term (current) drug therapy; Z91.5 Personal history of self-harm; Z88.0 Allergy status to penicillin
CPT/HCPCS: 83036; 84439; 84443; 87081; 90471; 90686; G0480; J1050

== ENCOUNTER 2019-07-08 12:44 | Emergency (ER) | payer MEDICARE, MEDICAID ==
[~2019-07-08] VITALS: Ht 160 cm; Wt 67.3 kg
[~2019-07-08 12:44] MED LIST changes: -CITA10TA68 PO; +[UNRECOGNIZED DRUG - CODE] PO
[2019-07-08 14:11] LABS: BASOPHILS % (AUTO) 0.7 % (0.0-2.0); EOSINOPHILS % (AUTO) 0.6 % (1.0-6.0); HEMATOCRIT 35.6 % (36-46); HEMOGLOBIN 11.6 g/dL (12.0-16.0); LYMPHOCYTES # (AUTO) 1.1 K/uL (1.0-4.8); MEAN CORPUSCULAR HEMOGLOBIN 27.8 pg (26.0-34.0); MEAN CORPUSCULAR HGB CONC 32.6 G/dL (31.0-37.0); MEAN CORPUSCULAR VOLUME 85 fL (80-100); MONOCYTES # (AUTO) 0.4 K/uL (0.1-1.0); MONOCYTES % (AUTO) 9.9 % (2.0-9.0); NEUTROPHILS # (AUTO) 2.3 K/uL (1.8-7.7); NEUTROPHILS % (AUTO) 59.8 % (40.0-70.0); PLATELET COUNT (AUTO) 132 K/uL (150-450); RED BLOOD CELL COUNT(AUTO) 4.17 MIL/uL (4.00-5.20); RED CELL DISTRIBUTION WIDTH 16.2 % (11.5-14.5)
[2019-07-08 14:20] LABS: ANION GAP 6 mmol/L (8-16); CALCIUM, TOTAL 8.4 mg/dL (8.8-10.5); CARBON DIOXIDE 28 mmol/L (22-29); CHLORIDE 109 mmol/L (98-107); CREATININE 0.88 mg/dL (0.60-1.30); GLOMERULAR FILTR. RATE CALC > 60 mL/min (>60); GLUCOSE,RANDOM 88 mg/dL (70-110); SODIUM SERUM 143 mmol/L (136-145); UREA NITROGEN, BLOOD 10 mg/dL (7-18)
[2019-07-08 14:26] LABS: ALANINE AMINOTRANSFERASE 14 U/L (12-78); ALBUMIN 3.4 g/dL (3.4-5.0); ALKALINE PHOSPHATASE 26 U/L (46-116); ASPARTATE AMINOTRANSFERASE 7 U/L (15-37); BILIRUBIN,TOTAL 0.3 mg/dL (0.1-1.0); TOTAL PROTEIN, SERUM 6.4 g/dL (6.4-8.2)
[2019-07-08 16:20] VITALS: BP 100/68
[2019-07-08] MEDS: LORazepam 1 MG TABLET PO ONE (18:10)
== END 2019-07-08 18:00 | disposition home or self-care (01) ==
LOC: EMS 12:45
DX: F25.1 Schizoaffective disorder, depressive type (principal); F41.9 Anxiety disorder, unspecified; Z79.899 Other long term (current) drug therapy; Z88.0 Allergy status to penicillin
CPT/HCPCS: 36415; 80053; 85025; 99285; G0480

== ENCOUNTER 2019-07-10 17:33 | Inpatient (IN) | payer MEDICARE, MEDICAID ==
[~2019-07-10] VITALS: Ht 160 cm; Wt 69.4 kg
[2019-07-10 19:36] LABS: BASOPHILS % (AUTO) 0.5 % (0.0-2.0); EOSINOPHILS % (AUTO) 1.8 % (1.0-6.0); HEMOGLOBIN 10.6 g/dL (12.0-16.0); LYMPHOCYTES # (AUTO) 1.6 K/uL (1.0-4.8); LYMPHOCYTES % (AUTO) 35.9 % (22.0-44.0); MEAN CORPUSCULAR HEMOGLOBIN 27.7 pg (26.0-34.0); MEAN CORPUSCULAR HGB CONC 32.2 G/dL (31.0-37.0); MEAN CORPUSCULAR VOLUME 86 fL (80-100); MONOCYTES # (AUTO) 0.4 K/uL (0.1-1.0); MONOCYTES % (AUTO) 9.8 % (2.0-9.0); NEUTROPHILS # (AUTO) 2.4 K/uL (1.8-7.7); PLATELET COUNT (AUTO) 130 K/uL (150-450); RED BLOOD CELL COUNT(AUTO) 3.84 MIL/uL (4.00-5.20); RED CELL DISTRIBUTION WIDTH 15.9 % (11.5-14.5)
[2019-07-10 19:43] LABS: AMPHET/METH SCREEN,URINE NEGATIVE (NEGATIVE); BARBITURATE SCREEN, URINE NEGATIVE (NEGATIVE); BENZODIAZEPINES SCREEN,URINE NEGATIVE (NEGATIVE); CANNABINOID SCREEN,URINE NEGATIVE (NEGATIVE); COCAINE SCREEN,URINE NEGATIVE (NEGATIVE); METHADONE SCREEN, URINE NEGATIVE (NEGATIVE); OPIATE SCREEN,URINE NEGATIVE (NEGATIVE)
[2019-07-10 19:45] LABS: PHENCYCLIDINE SCREEN,URINE NEGATIVE (NEGATIVE)
[2019-07-10 20:05] LABS: ANION GAP 7 mmol/L (8-16); CALCIUM, TOTAL 8.4 mg/dL (8.8-10.5); CARBON DIOXIDE 30 mmol/L (22-29); CHLORIDE 106 mmol/L (98-107); CREATININE 0.62 mg/dL (0.60-1.30); GLOMERULAR FILTR. RATE CALC > 60 mL/min (>60); GLUCOSE,RANDOM 88 mg/dL (70-110); POTASSIUM 4.5 mmol/L (3.5-5.1); SODIUM SERUM 143 mmol/L (136-145); UREA NITROGEN, BLOOD 13 mg/dL (7-18)
[2019-07-10 20:11] LABS: ALANINE AMINOTRANSFERASE 7 U/L (12-78); ALBUMIN 3.2 g/dL (3.4-5.0); ALKALINE PHOSPHATASE 23 U/L (46-116); ASPARTATE AMINOTRANSFERASE 6 U/L (15-37); BILIRUBIN,TOTAL 0.3 mg/dL (0.1-1.0); TOTAL PROTEIN, SERUM 6.2 g/dL (6.4-8.2)
[2019-07-10] MEDS ORDERED: ZOLPIDEM TARTRATE 10 MG TABLET PO PRN (21:15)
[2019-07-11 01:27] VITALS: BP 110/72
[2019-07-11 08:40] VITALS: BP 109/66
[2019-07-11] MEDS: RisperiDONE 3 MG TABLET PO SCH ×2 (10:17→20:16)
[2019-07-11] MEDS: CITALOPRAM HYDROBROMIDE 10 MG TABLET PO SCH (10:18)
[2019-07-11] MEDS: BusPIRone HCL 10 MG TABLET PO SCH ×2 (10:18→20:15)
[2019-07-11] MEDS: DIVALPROEX SODIUM 500 MG DR TABLET PO SCH ×2 (10:18→20:16)
[2019-07-11] MEDS ORDERED: GuaiFENesin/D-METHORPHAN [SUGAR-FREE] 200-20MG/10 ML SYRUP UDCUP PO PRN (11:30)
[2019-07-11] MEDS ORDERED: ALBUTEROL SULFATE HFA 90 MCG/PUFF 8 GM INHALER IH PRN (11:30)
[2019-07-11] MEDS ORDERED: NICOTINE 14 MG/24 HOUR PATCH TD PRN (11:30)
[2019-07-11] MEDS ORDERED: IBUPROFEN 400 MG TABLET PO PRN (11:30)
[2019-07-11] MEDS ORDERED: MAG HYDROX/AL HYDROX/SIMETH ES 30 ML SUSPENSION UDCUP PO PRN (11:30)
[2019-07-11] MEDS ORDERED: CloNIDine HCL 0.1 MG TABLET PO PRN (11:30)
[2019-07-11] MEDS ORDERED: DOCUSATE SODIUM 100 MG CAPSULE PO PRN (11:30)
[2019-07-11] MEDS ORDERED: PETROLATUM,WHITE 28 GM JELLY TP PRN (11:30)
[2019-07-11] MEDS ORDERED: ACETAMINOPHEN 325 MG TABLET PO PRN (11:30)
[2019-07-11] MEDS ORDERED: ONDANSETRON HCL 4 MG TABLET PO PRN (11:30)
[2019-07-11] MEDS ORDERED: LOPERAMIDE HCL 2 MG CAPSULE PO PRN (11:30)
[2019-07-11] MEDS ORDERED: MAGNESIUM HYDROXIDE SUSPENSION 30 ML UDCUP PO PRN (11:30)
[2019-07-11 19:23] VITALS: BP 107/68
[2019-07-12 05:59] VITALS: BP 102/64
[2019-07-12 07:25] LABS: CHOL/HDL RATIO 2.3 (3.9-5.7)
[2019-07-12 08:30] VITALS: BP 85/54
[2019-07-12] MEDS: BusPIRone HCL 10 MG TABLET PO SCH ×2 (09:23→20:33)
[2019-07-12] MEDS: RisperiDONE 3 MG TABLET PO SCH ×2 (09:23→20:33)
[2019-07-12] MEDS: DIVALPROEX SODIUM 500 MG DR TABLET PO SCH ×2 (09:23→20:33)
[2019-07-12] MEDS: CITALOPRAM HYDROBROMIDE 10 MG TABLET PO SCH (09:24)
[2019-07-12 09:30] VITALS: BP 108/55
[2019-07-13 06:31] VITALS: BP 104/63
[2019-07-13] MEDS: DIVALPROEX SODIUM 500 MG DR TABLET PO SCH ×2 (08:36→20:32)
[2019-07-13] MEDS: CITALOPRAM HYDROBROMIDE 10 MG TABLET PO SCH (08:36)
[2019-07-13] MEDS: RisperiDONE 3 MG TABLET PO SCH ×2 (08:36→20:32)
[2019-07-13] MEDS: BusPIRone HCL 10 MG TABLET PO SCH ×2 (08:36→20:32)
[2019-07-13 08:58] VITALS: BP 86/48
[2019-07-13 18:16] VITALS: BP 106/60
[2019-07-14 06:40] VITALS: BP 106/58
[2019-07-14 08:38] VITALS: BP 106/69
[2019-07-14] MEDS: DIVALPROEX SODIUM 500 MG DR TABLET PO SCH ×2 (08:53→20:34)
[2019-07-14] MEDS: RisperiDONE 3 MG TABLET PO SCH ×2 (08:53→20:35)
[2019-07-14] MEDS: BusPIRone HCL 10 MG TABLET PO SCH ×2 (08:53→20:34)
[2019-07-14] MEDS: CITALOPRAM HYDROBROMIDE 10 MG TABLET PO SCH (09:08)
[2019-07-14 17:21] VITALS: BP 109/63
[2019-07-15 06:34] VITALS: BP 104/62
[2019-07-15 08:44] VITALS: BP 106/69
[2019-07-15] MEDS: BusPIRone HCL 10 MG TABLET PO SCH ×2 (09:43→20:38)
[2019-07-15] MEDS: RisperiDONE 3 MG TABLET PO SCH ×2 (09:43→20:38)
[2019-07-15] MEDS: DIVALPROEX SODIUM 500 MG DR TABLET PO SCH ×2 (09:43→20:38)
[2019-07-15] MEDS: CITALOPRAM HYDROBROMIDE 10 MG TABLET PO SCH (09:44)
[2019-07-15 16:18] VITALS: BP 112/69
[2019-07-16] MEDS: DIVALPROEX SODIUM 500 MG DR TABLET PO SCH ×2 (08:54→20:34)
[2019-07-16] MEDS: CITALOPRAM HYDROBROMIDE 10 MG TABLET PO SCH (08:54)
[2019-07-16] MEDS: BusPIRone HCL 10 MG TABLET PO SCH ×2 (08:54→20:34)
[2019-07-16] MEDS: RisperiDONE 3 MG TABLET PO SCH ×2 (08:55→20:34)
[2019-07-16 09:00] VITALS: BP 96/68
[2019-07-16] MEDS: MULTIVITAMINS WITH IRON TABLET PO SCH (11:06)
[2019-07-16 16:24] VITALS: BP 108/62
[2019-07-16] MEDS: LORazepam 2 MG TABLET PO PRN (16:49)
[2019-07-16] MEDS ORDERED: TUBERCULIN, PURIFIED PROTEIN DERIVATIVE 5 TU/0.1 ML SYRINGE ID ONE (17:30)
[2019-07-17 07:10] VITALS: BP 102/62
[2019-07-17 08:32] VITALS: BP 109/66
[2019-07-17] MEDS: CITALOPRAM HYDROBROMIDE 10 MG TABLET PO SCH (09:00)
[2019-07-17] MEDS: DIVALPROEX SODIUM 500 MG DR TABLET PO SCH ×2 (09:00→20:41)
[2019-07-17] MEDS: BusPIRone HCL 10 MG TABLET PO SCH ×2 (09:00→20:42)
[2019-07-17] MEDS: RisperiDONE 3 MG TABLET PO SCH ×2 (09:00→20:42)
[2019-07-17] MEDS: MULTIVITAMINS WITH IRON TABLET PO SCH (09:00)
[2019-07-17 16:39] VITALS: BP 90/47
[2019-07-18 06:42] VITALS: BP 103/66
[2019-07-18 08:36] VITALS: BP 112/78
[2019-07-18] MEDS: MULTIVITAMINS WITH IRON TABLET PO SCH (08:56)
[2019-07-18] MEDS: RisperiDONE 3 MG TABLET PO SCH ×2 (08:57→20:33)
[2019-07-18] MEDS: DIVALPROEX SODIUM 500 MG DR TABLET PO SCH ×2 (08:57→20:33)
[2019-07-18] MEDS: BusPIRone HCL 10 MG TABLET PO SCH ×2 (08:57→20:33)
[2019-07-18] MEDS: CITALOPRAM HYDROBROMIDE 10 MG TABLET PO SCH (08:57)
[2019-07-18 16:20] VITALS: BP 107/62
[2019-07-18] MEDS: LORazepam 2 MG TABLET PO PRN (16:58)
[2019-07-19 08:30] VITALS: BP 111/72
[2019-07-19] MEDS: MULTIVITAMINS WITH IRON TABLET PO SCH (09:04)
[2019-07-19] MEDS: BusPIRone HCL 10 MG TABLET PO SCH ×2 (09:05→20:14)
[2019-07-19] MEDS: CITALOPRAM HYDROBROMIDE 10 MG TABLET PO SCH (09:05)
[2019-07-19] MEDS: DIVALPROEX SODIUM 500 MG DR TABLET PO SCH ×2 (09:05→20:14)
[2019-07-19 16:26] VITALS: BP 110/78
[2019-07-19] MEDS: LORazepam 2 MG TABLET PO PRN (17:22)
[2019-07-20 06:01] VITALS: BP 106/63
[2019-07-20 08:42] VITALS: BP 109/67
[2019-07-20] MEDS: CITALOPRAM HYDROBROMIDE 10 MG TABLET PO SCH (09:24)
[2019-07-20] MEDS: BusPIRone HCL 10 MG TABLET PO SCH ×2 (09:24→20:17)
[2019-07-20] MEDS: DIVALPROEX SODIUM 500 MG DR TABLET PO SCH ×2 (09:24→20:17)
[2019-07-20] MEDS: MULTIVITAMINS WITH IRON TABLET PO SCH (09:24)
[2019-07-20 16:24] VITALS: BP 112/72
[2019-07-20] MEDS: LORazepam 2 MG TABLET PO PRN (16:45)
[2019-07-20] MEDS: HALOPERIDOL 5 MG TABLET PO PRN (17:46)
[2019-07-21 07:19] VITALS: BP 106/68
[2019-07-21] MEDS: BusPIRone HCL 10 MG TABLET PO SCH ×2 (08:41→20:05)
[2019-07-21] MEDS: MULTIVITAMINS WITH IRON TABLET PO SCH (08:41)
[2019-07-21] MEDS: DIVALPROEX SODIUM 500 MG DR TABLET PO SCH ×2 (08:42→20:05)
[2019-07-21] MEDS: CITALOPRAM HYDROBROMIDE 10 MG TABLET PO SCH (09:21)
[2019-07-21] MEDS: HALOPERIDOL 5 MG TABLET PO PRN ×2 (10:26→16:27)
[2019-07-21] MEDS: LORazepam 2 MG TABLET PO PRN ×2 (10:26→16:27)
[2019-07-21 17:27] VITALS: BP 109/61
[2019-07-22 05:29] VITALS: BP 113/76
[2019-07-22] MEDS: BusPIRone HCL 10 MG TABLET PO SCH ×2 (09:20→20:23)
[2019-07-22] MEDS: CITALOPRAM HYDROBROMIDE 10 MG TABLET PO SCH (09:20)
[2019-07-22] MEDS: DIVALPROEX SODIUM 500 MG DR TABLET PO SCH ×2 (09:20→20:23)
[2019-07-22] MEDS: MULTIVITAMINS WITH IRON TABLET PO SCH (09:21)
[2019-07-22] MEDS: LORazepam 2 MG TABLET PO PRN (18:20)
[2019-07-22 22:04] VITALS: BP 106/62
[2019-07-23 06:42] VITALS: BP 103/62
[2019-07-23] MEDS: MULTIVITAMINS WITH IRON TABLET PO SCH (08:52)
[2019-07-23] MEDS: DIVALPROEX SODIUM 500 MG DR TABLET PO SCH ×2 (08:52→20:32)
[2019-07-23] MEDS: BusPIRone HCL 10 MG TABLET PO SCH ×2 (08:53→20:32)
[2019-07-23] MEDS: CITALOPRAM HYDROBROMIDE 10 MG TABLET PO SCH (08:53)
[2019-07-23 18:27] VITALS: BP 100/85
[2019-07-24] MEDS: CITALOPRAM HYDROBROMIDE 10 MG TABLET PO SCH (08:51)
[2019-07-24] MEDS: BusPIRone HCL 10 MG TABLET PO SCH ×2 (08:51→20:35)
[2019-07-24] MEDS: DIVALPROEX SODIUM 500 MG DR TABLET PO SCH ×2 (08:51→20:35)
[2019-07-24] MEDS: MULTIVITAMINS WITH IRON TABLET PO SCH (08:51)
[2019-07-24 08:56] VITALS: BP 105/66
[2019-07-24 16:17] VITALS: BP 113/63
[2019-07-24] MEDS ORDERED: DEPOP150I IM (22:54)
[2019-07-24] MEDS ORDERED: CITA-106 PO (23:10)
[2019-07-25 06:59] VITALS: BP_SYST 82; BP_SYST 90; BP_DIAS 60
[2019-07-25] MEDS: MULTIVITAMINS WITH IRON TABLET PO SCH (08:42)
[2019-07-25] MEDS: BusPIRone HCL 10 MG TABLET PO SCH (08:43)
[2019-07-25] MEDS: DIVALPROEX SODIUM 500 MG DR TABLET PO SCH (08:43)
[2019-07-25] MEDS: CITALOPRAM HYDROBROMIDE 10 MG TABLET PO SCH (08:44)
[2019-07-25 08:45] VITALS: BP 102/62
[2019-07-25] MEDS ORDERED: PALI234D IM (10:21)
[2019-07-25] MEDS ORDERED: DIVA-78 PO (10:21)
[2019-07-25] MEDS ORDERED: CITA10TA68 PO (10:21)
[2019-07-25] MEDS ORDERED: BUSP10TA23 PO (10:21)
[2019-08-01] MEDS ORDERED: PALIPERIDONE PALMITATE 234 MG/1.5 ML SYRINGE IM SCH (09:00)
== END 2019-07-25 15:00 | disposition home or self-care (01) | DRG 885 ==
LOC: EMS 17:34 → B2X 23:14
DX: F25.1 Schizoaffective disorder, depressive type (principal); F79 Unspecified intellectual disabilities; E44.1 Mild protein-calorie malnutrition; R45.851 Suicidal ideations; D64.9 Anemia, unspecified; I95.9 Hypotension, unspecified; Z91.5 Personal history of self-harm; Z68.27 Body mass index [BMI] 27.0-27.9, adult; Z88.0 Allergy status to penicillin; Z79.899 Other long term (current) drug therapy
CPT/HCPCS: 87081; G0480; J1050

== ENCOUNTER 2019-07-28 14:30 | Emergency (ER) | payer MEDICARE, MEDICAID ==
[~2019-07-28] VITALS: Ht 157.5 cm; Wt 75.0 kg
[~2019-07-28 14:30] MED LIST changes: +CITA10TA68 PO; +PALI234D IM; -RISP3 PO; -[UNRECOGNIZED DRUG - CODE] PO
[2019-07-28 16:54] LABS: BASOPHILS % (AUTO) 0.8 % (0.0-2.0); EOSINOPHILS % (AUTO) 1.3 % (1.0-6.0); HEMATOCRIT 33.7 % (36-46); HEMOGLOBIN 11.2 g/dL (12.0-16.0); LYMPHOCYTES # (AUTO) 1.6 K/uL (1.0-4.8); LYMPHOCYTES % (AUTO) 34.9 % (22.0-44.0); MEAN CORPUSCULAR HEMOGLOBIN 28.7 pg (26.0-34.0); MEAN CORPUSCULAR HGB CONC 33.2 G/dL (31.0-37.0); MEAN CORPUSCULAR VOLUME 87 fL (80-100); MONOCYTES # (AUTO) 0.5 K/uL (0.1-1.0); MONOCYTES % (AUTO) 9.9 % (2.0-9.0); NEUTROPHILS # (AUTO) 2.4 K/uL (1.8-7.7); NEUTROPHILS % (AUTO) 53.1 % (40.0-70.0); PLATELET COUNT (AUTO) 148 K/uL (150-450); RED BLOOD CELL COUNT(AUTO) 3.89 MIL/uL (4.00-5.20); RED CELL DISTRIBUTION WIDTH 15.8 % (11.5-14.5)
[2019-07-28 17:12] LABS: ANION GAP 7 mmol/L (8-16); CALCIUM, TOTAL 8.5 mg/dL (8.8-10.5); CARBON DIOXIDE 28 mmol/L (22-29); CHLORIDE 104 mmol/L (98-107); GLOMERULAR FILTR. RATE CALC > 60 mL/min (>60); GLUCOSE,RANDOM 103 mg/dL (70-110); POTASSIUM 4.1 mmol/L (3.5-5.1); SODIUM SERUM 139 mmol/L (136-145); UREA NITROGEN, BLOOD 15 mg/dL (7-18)
[2019-07-28 17:25] LABS: AMPHET/METH SCREEN,URINE NEGATIVE (NEGATIVE); BARBITURATE SCREEN, URINE NEGATIVE (NEGATIVE); BENZODIAZEPINES SCREEN,URINE NEGATIVE (NEGATIVE); CANNABINOID SCREEN,URINE NEGATIVE (NEGATIVE); COCAINE SCREEN,URINE NEGATIVE (NEGATIVE); METHADONE SCREEN, URINE NEGATIVE (NEGATIVE); OPIATE SCREEN,URINE NEGATIVE (NEGATIVE)
[2019-07-28 17:27] LABS: PHENCYCLIDINE SCREEN,URINE NEGATIVE (NEGATIVE)
[2019-07-28 17:31] LABS: ALANINE AMINOTRANSFERASE 8 U/L (12-78); ALBUMIN 3.5 g/dL (3.4-5.0); ALKALINE PHOSPHATASE 23 U/L (46-116); ASPARTATE AMINOTRANSFERASE 7 U/L (15-37); BILIRUBIN,TOTAL 0.2 mg/dL (0.1-1.0); HCG,QUANTITATIVE < 1 mIU/mL (0-6); TOTAL PROTEIN, SERUM 6.6 g/dL (6.4-8.2); VALPROIC ACID 87 mcg/mL (50-100)
[2019-07-28] MEDS ORDERED: LORazepam 1 MG TABLET PO ONE (18:15)
[2019-07-28 18:45] VITALS: BP 107/60
== END 2019-07-28 19:35 | disposition home or self-care (01) ==
LOC: EDUNIT# 14:30 → EMS 14:33
DX: F25.1 Schizoaffective disorder, depressive type (principal); Z79.899 Other long term (current) drug therapy; Z88.0 Allergy status to penicillin
CPT/HCPCS: 36415; 80053; 80164; 80307; 84702; 85025; 99284; G0480

== ENCOUNTER 2019-07-29 09:56 | Emergency (ER) | payer MEDICARE, MEDICAID ==
[~2019-07-29] VITALS: Ht 160 cm; Wt 63.6 kg
[2019-07-29 10:08] VITALS: BP 92/59
[2019-07-29 11:06] LABS: BASOPHILS % (AUTO) 0.6 % (0.0-2.0); EOSINOPHILS % (AUTO) 0.7 % (1.0-6.0); HEMATOCRIT 33.5 % (36-46); HEMOGLOBIN 11.1 g/dL (12.0-16.0); LYMPHOCYTES # (AUTO) 1.2 K/uL (1.0-4.8); LYMPHOCYTES % (AUTO) 32.2 % (22.0-44.0); MEAN CORPUSCULAR HEMOGLOBIN 28.7 pg (26.0-34.0); MEAN CORPUSCULAR VOLUME 87 fL (80-100); MONOCYTES # (AUTO) 0.4 K/uL (0.1-1.0); MONOCYTES % (AUTO) 10.6 % (2.0-9.0); NEUTROPHILS # (AUTO) 2.2 K/uL (1.8-7.7); NEUTROPHILS % (AUTO) 55.9 % (40.0-70.0); PLATELET COUNT (AUTO) 144 K/uL (150-450); RED BLOOD CELL COUNT(AUTO) 3.86 MIL/uL (4.00-5.20); RED CELL DISTRIBUTION WIDTH 16.2 % (11.5-14.5)
[2019-07-29 11:14] LABS: ANION GAP 7 mmol/L (8-16); CALCIUM, TOTAL 8.4 mg/dL (8.8-10.5); CARBON DIOXIDE 28 mmol/L (22-29); CHLORIDE 106 mmol/L (98-107); CREATININE 0.58 mg/dL (0.60-1.30); GLOMERULAR FILTR. RATE CALC > 60 mL/min (>60); GLUCOSE,RANDOM 70 mg/dL (70-110); POTASSIUM 4.5 mmol/L (3.5-5.1); SODIUM SERUM 141 mmol/L (136-145)
[2019-07-29 11:17] LABS: AMPHET/METH SCREEN,URINE NEGATIVE (NEGATIVE); BARBITURATE SCREEN, URINE NEGATIVE (NEGATIVE); BENZODIAZEPINES SCREEN,URINE NEGATIVE (NEGATIVE); CANNABINOID SCREEN,URINE NEGATIVE (NEGATIVE); COCAINE SCREEN,URINE NEGATIVE (NEGATIVE); METHADONE SCREEN, URINE NEGATIVE (NEGATIVE); OPIATE SCREEN,URINE NEGATIVE (NEGATIVE)
[2019-07-29 11:19] LABS: PHENCYCLIDINE SCREEN,URINE NEGATIVE (NEGATIVE)
[2019-07-29 11:21] LABS: ALANINE AMINOTRANSFERASE 8 U/L (12-78); ALBUMIN 3.2 g/dL (3.4-5.0); ALKALINE PHOSPHATASE 20 U/L (46-116); ASPARTATE AMINOTRANSFERASE 8 U/L (15-37); BILIRUBIN,TOTAL 0.3 mg/dL (0.1-1.0); TOTAL PROTEIN, SERUM 6.1 g/dL (6.4-8.2); UREA NITROGEN, BLOOD 15 mg/dL (7-18); VALPROIC ACID 96 mcg/mL (50-100)
== END 2019-07-29 12:28 | disposition home or self-care (01) ==
LOC: EMS 09:58
DX: F25.1 Schizoaffective disorder, depressive type (principal); Z79.899 Other long term (current) drug therapy; Z88.0 Allergy status to penicillin
CPT/HCPCS: 36415; 80053; 80164; 80307; 85025; 99285; G0480

== ENCOUNTER 2019-07-29 18:46 | Inpatient (IN) | payer MEDICARE, MEDICAID ==
[~2019-07-29] VITALS: Ht 160 cm; Wt 66.2 kg
[2019-07-29] MEDS ORDERED: ZOLPIDEM TARTRATE 10 MG TABLET PO PRN (21:45)
[2019-07-30] MEDS ORDERED: PNEUMOCOCCAL VACCINE POLYVALENT 0.5 ML VIAL [PPSV23] IM ONE (01:45)
[2019-07-30 01:47] VITALS: BP 102/69
[2019-07-30 02:49] VITALS: BP 102/69
[2019-07-30 06:49] LABS: APPEARANCE,URINE CLEAR (CLEAR); BILIRUBIN,URINE NEGATIVE (NEGATIVE); GLUCOSE, URINE (UA) NEGATIVE (NEGATIVE); KETONES,URINE NEGATIVE (NEGATIVE); LEUKOCYTE ESTERASE ,URINE NEGATIVE (NEGATIVE); NITRATE,URINE NEGATIVE (NEGATIVE); OCCULT BLOOD,URINE NEGATIVE (NEGATIVE); PROTEIN,URINE NEGATIVE (NEGATIVE)
[2019-07-30 06:57] LABS: AMPHET/METH SCREEN,URINE NEGATIVE (NEGATIVE); BARBITURATE SCREEN, URINE NEGATIVE (NEGATIVE); BENZODIAZEPINES SCREEN,URINE NEGATIVE (NEGATIVE); CANNABINOID SCREEN,URINE NEGATIVE (NEGATIVE); COCAINE SCREEN,URINE NEGATIVE (NEGATIVE); METHADONE SCREEN, URINE NEGATIVE (NEGATIVE); OPIATE SCREEN,URINE NEGATIVE (NEGATIVE)
[2019-07-30 07:02] LABS: PHENCYCLIDINE SCREEN,URINE NEGATIVE (NEGATIVE)
[2019-07-30 10:06] VITALS: BP 101/62
[2019-07-30] MEDS: BusPIRone HCL 10 MG TABLET PO SCH ×2 (11:54→20:46)
[2019-07-30] MEDS: CITALOPRAM HYDROBROMIDE 10 MG TABLET PO SCH (11:54)
[2019-07-30] MEDS: DIVALPROEX SODIUM 500 MG DR TABLET PO SCH ×2 (11:55→20:47)
[2019-07-30 21:17] VITALS: BP 97/61
[2019-07-31] MEDS: BusPIRone HCL 10 MG TABLET PO SCH ×2 (08:21→20:59)
[2019-07-31] MEDS: CITALOPRAM HYDROBROMIDE 10 MG TABLET PO SCH (08:21)
[2019-07-31] MEDS: DIVALPROEX SODIUM 500 MG DR TABLET PO SCH ×2 (08:21→20:59)
[2019-07-31 09:23] VITALS: BP 99/57
[2019-07-31 20:04] VITALS: BP 85/52
[2019-08-01] MEDS: CITALOPRAM HYDROBROMIDE 10 MG TABLET PO SCH (08:15)
[2019-08-01] MEDS: BusPIRone HCL 10 MG TABLET PO SCH ×2 (08:15→20:08)
[2019-08-01] MEDS: DIVALPROEX SODIUM 500 MG DR TABLET PO SCH ×2 (08:15→20:09)
[2019-08-01 10:11] VITALS: BP 99/59
[2019-08-01] MEDS: LORazepam 1 MG TABLET PO PRN (11:44)
[2019-08-01 16:55] VITALS: BP 90/53
[2019-08-01 20:10] VITALS: BP 100/61
[2019-08-02 08:51] VITALS: BP 95/56
[2019-08-02] MEDS: CITALOPRAM HYDROBROMIDE 10 MG TABLET PO SCH (09:49)
[2019-08-02] MEDS: DIVALPROEX SODIUM 500 MG DR TABLET PO SCH ×2 (09:50→20:08)
[2019-08-02] MEDS: LORazepam 1 MG TABLET PO PRN (09:50)
[2019-08-02] MEDS: BusPIRone HCL 10 MG TABLET PO SCH ×2 (09:50→20:08)
[2019-08-02] MEDS: HALOPERIDOL 5 MG TABLET PO PRN (17:05)
[2019-08-02 17:10] VITALS: BP 98/57
[2019-08-03] MEDS: BusPIRone HCL 10 MG TABLET PO SCH ×2 (09:37→20:42)
[2019-08-03] MEDS: CITALOPRAM HYDROBROMIDE 10 MG TABLET PO SCH (09:37)
[2019-08-03] MEDS: DIVALPROEX SODIUM 500 MG DR TABLET PO SCH ×2 (09:37→20:42)
[2019-08-03] MEDS: LORazepam 1 MG TABLET PO PRN (16:24)
[2019-08-03] MEDS: HALOPERIDOL 5 MG TABLET PO PRN (16:24)
[2019-08-03 17:49] VITALS: BP 88/57
[2019-08-04] MEDS: FOLIC ACID 1 MG TABLET PO SCH (08:06)
[2019-08-04] MEDS: CITALOPRAM HYDROBROMIDE 10 MG TABLET PO SCH (08:06)
[2019-08-04] MEDS: BusPIRone HCL 10 MG TABLET PO SCH ×2 (08:06→21:08)
[2019-08-04] MEDS: LORazepam 1 MG TABLET PO PRN (08:06)
[2019-08-04] MEDS: HALOPERIDOL 5 MG TABLET PO PRN (08:06)
[2019-08-04] MEDS: DIVALPROEX SODIUM 500 MG DR TABLET PO SCH ×2 (08:06→21:08)
[2019-08-04 09:10] VITALS: BP 99/86
[2019-08-04 19:44] VITALS: BP 88/56
[2019-08-05] MEDS: BusPIRone HCL 10 MG TABLET PO SCH ×2 (10:05→20:22)
[2019-08-05] MEDS: CITALOPRAM HYDROBROMIDE 10 MG TABLET PO SCH (10:06)
[2019-08-05] MEDS: DIVALPROEX SODIUM 500 MG DR TABLET PO SCH ×2 (10:06→20:21)
[2019-08-05] MEDS: FOLIC ACID 1 MG TABLET PO SCH (10:06)
[2019-08-05 12:48] VITALS: BP 106/63
[2019-08-05 16:00] VITALS: BP 110/67
[2019-08-06] MEDS: FOLIC ACID 1 MG TABLET PO SCH (08:29)
[2019-08-06] MEDS: BusPIRone HCL 10 MG TABLET PO SCH ×2 (08:29→20:46)
[2019-08-06] MEDS: CITALOPRAM HYDROBROMIDE 10 MG TABLET PO SCH (08:29)
[2019-08-06] MEDS: DIVALPROEX SODIUM 500 MG DR TABLET PO SCH ×2 (08:29→20:46)
[2019-08-06 08:30] VITALS: BP 113/70
[2019-08-06] MEDS: LORazepam 1 MG TABLET PO PRN (10:01)
[2019-08-06] MEDS: HALOPERIDOL 5 MG TABLET PO PRN (11:10)
[2019-08-06 18:56] VITALS: BP 86/54
[2019-08-06 20:51] VITALS: BP 99/59
[2019-08-07] MEDS: DIVALPROEX SODIUM 500 MG DR TABLET PO SCH ×2 (08:35→20:22)
[2019-08-07] MEDS: HALOPERIDOL 5 MG TABLET PO PRN ×2 (08:35→13:49)
[2019-08-07] MEDS: LORazepam 1 MG TABLET PO PRN ×2 (08:35→13:49)
[2019-08-07] MEDS: FOLIC ACID 1 MG TABLET PO SCH (08:36)
[2019-08-07] MEDS: CITALOPRAM HYDROBROMIDE 10 MG TABLET PO SCH (08:36)
[2019-08-07] MEDS: BusPIRone HCL 10 MG TABLET PO SCH ×2 (08:36→20:22)
[2019-08-07] MEDS ORDERED: MAGNESIUM HYDROXIDE SUSPENSION 30 ML UDCUP PO PRN (16:30)
[2019-08-07] MEDS ORDERED: MAG HYDROX/AL HYDROX/SIMETH ES 30 ML SUSPENSION UDCUP PO PRN (16:30)
[2019-08-07] MEDS ORDERED: GuaiFENesin/D-METHORPHAN [SUGAR-FREE] 200-20MG/10 ML SYRUP UDCUP PO PRN (16:30)
[2019-08-07] MEDS ORDERED: LOPERAMIDE HCL 2 MG CAPSULE PO PRN (16:30)
[2019-08-07] MEDS ORDERED: ALBUTEROL SULFATE HFA 90 MCG/PUFF 8 GM INHALER IH PRN (16:30)
[2019-08-07] MEDS ORDERED: ONDANSETRON HCL 4 MG TABLET PO PRN (16:30)
[2019-08-07] MEDS ORDERED: NICOTINE 14 MG/24 HOUR PATCH TD PRN (16:30)
[2019-08-07] MEDS ORDERED: CloNIDine HCL 0.1 MG TABLET PO PRN (16:30)
[2019-08-07] MEDS ORDERED: IBUPROFEN 400 MG TABLET PO PRN (16:30)
[2019-08-07] MEDS ORDERED: PETROLATUM,WHITE 28 GM JELLY TP PRN (16:30)
[2019-08-07] MEDS ORDERED: ACETAMINOPHEN 325 MG TABLET PO PRN (16:30)
[2019-08-07] MEDS ORDERED: DOCUSATE SODIUM 100 MG CAPSULE PO PRN (16:30)
[2019-08-07 17:49] VITALS: BP 91/54
[2019-08-08 08:00] VITALS: BP 98/64
[2019-08-08] MEDS: DIVALPROEX SODIUM 500 MG DR TABLET PO SCH ×2 (08:28→20:43)
[2019-08-08] MEDS: BusPIRone HCL 10 MG TABLET PO SCH ×2 (08:28→20:43)
[2019-08-08] MEDS: FOLIC ACID 1 MG TABLET PO SCH (08:28)
[2019-08-08] MEDS: CITALOPRAM HYDROBROMIDE 10 MG TABLET PO SCH (08:28)
[2019-08-08 16:00] VITALS: BP 107/55
[2019-08-09] MEDS: BusPIRone HCL 10 MG TABLET PO SCH ×2 (07:47→20:13)
[2019-08-09] MEDS: MULTIVITAMINS WITH MINERALS, THERAPEUTIC TABLET PO SCH (07:48)
[2019-08-09] MEDS: FOLIC ACID 1 MG TABLET PO SCH (07:48)
[2019-08-09] MEDS: CITALOPRAM HYDROBROMIDE 10 MG TABLET PO SCH (07:48)
[2019-08-09] MEDS: DIVALPROEX SODIUM 500 MG DR TABLET PO SCH ×2 (07:48→20:13)
[2019-08-09] MEDS: LORazepam 1 MG TABLET PO PRN (07:48)
[2019-08-09 08:30] VITALS: BP 101/58
[2019-08-09] MEDS: HALOPERIDOL 5 MG TABLET PO PRN (11:34)
[2019-08-09 16:47] VITALS: BP 108/68
[2019-08-10] MEDS: FOLIC ACID 1 MG TABLET PO SCH (07:59)
[2019-08-10] MEDS: BusPIRone HCL 10 MG TABLET PO SCH ×2 (07:59→20:22)
[2019-08-10] MEDS: DIVALPROEX SODIUM 500 MG DR TABLET PO SCH ×2 (07:59→20:22)
[2019-08-10] MEDS: CITALOPRAM HYDROBROMIDE 10 MG TABLET PO SCH (07:59)
[2019-08-10] MEDS: LORazepam 1 MG TABLET PO PRN (07:59)
[2019-08-10] MEDS: MULTIVITAMINS WITH MINERALS, THERAPEUTIC TABLET PO SCH (07:59)
[2019-08-10 08:30] VITALS: BP_SYST 83; BP_SYST 93; BP_DIAS 52; BP_DIAS 68
[2019-08-10 16:45] VITALS: BP 92/52
[2019-08-11] MEDS: DIVALPROEX SODIUM 500 MG DR TABLET PO SCH ×2 (07:42→20:40)
[2019-08-11] MEDS: LORazepam 1 MG TABLET PO PRN ×2 (07:43→12:23)
[2019-08-11] MEDS: BusPIRone HCL 10 MG TABLET PO SCH ×2 (07:43→20:40)
[2019-08-11] MEDS: FOLIC ACID 1 MG TABLET PO SCH (07:43)
[2019-08-11] MEDS: CITALOPRAM HYDROBROMIDE 10 MG TABLET PO SCH (07:43)
[2019-08-11] MEDS: MULTIVITAMINS WITH MINERALS, THERAPEUTIC TABLET PO SCH (07:43)
[2019-08-11] MEDS: HALOPERIDOL 5 MG TABLET PO PRN (11:35)
[2019-08-11 16:17] VITALS: BP 92/56
[2019-08-12] MEDS: CITALOPRAM HYDROBROMIDE 10 MG TABLET PO SCH (10:33)
[2019-08-12] MEDS: DIVALPROEX SODIUM 500 MG DR TABLET PO SCH ×2 (10:33→21:00)
[2019-08-12] MEDS: BusPIRone HCL 10 MG TABLET PO SCH ×2 (10:33→21:00)
[2019-08-12] MEDS: FOLIC ACID 1 MG TABLET PO SCH (10:33)
[2019-08-12] MEDS: MULTIVITAMINS WITH MINERALS, THERAPEUTIC TABLET PO SCH (10:34)
[2019-08-12] MEDS: LORazepam 1 MG TABLET PO PRN (11:03)
[2019-08-12 16:23] VITALS: BP 104/77
[2019-08-13 08:03] VITALS: BP 149/50
[2019-08-13] MEDS: BusPIRone HCL 10 MG TABLET PO SCH ×2 (09:12→20:24)
[2019-08-13] MEDS: MULTIVITAMINS WITH MINERALS, THERAPEUTIC TABLET PO SCH (09:13)
[2019-08-13] MEDS: FOLIC ACID 1 MG TABLET PO SCH (09:13)
[2019-08-13] MEDS: CITALOPRAM HYDROBROMIDE 10 MG TABLET PO SCH (09:13)
[2019-08-13] MEDS: DIVALPROEX SODIUM 500 MG DR TABLET PO SCH ×2 (09:13→20:24)
[2019-08-13] MEDS: HALOPERIDOL 5 MG TABLET PO PRN (09:13)
[2019-08-13 16:01] VITALS: BP 109/81
[2019-08-14 06:10] VITALS: BP 91/62
[2019-08-14] MEDS: DIVALPROEX SODIUM 500 MG DR TABLET PO SCH ×2 (07:35→20:46)
[2019-08-14] MEDS: LORazepam 1 MG TABLET PO PRN (07:35)
[2019-08-14] MEDS: FOLIC ACID 1 MG TABLET PO SCH (07:35)
[2019-08-14] MEDS: CITALOPRAM HYDROBROMIDE 10 MG TABLET PO SCH (07:35)
[2019-08-14] MEDS: MULTIVITAMINS WITH MINERALS, THERAPEUTIC TABLET PO SCH (07:35)
[2019-08-14] MEDS: BusPIRone HCL 10 MG TABLET PO SCH ×2 (07:36→20:46)
[2019-08-14 09:03] VITALS: BP 99/70
[2019-08-14 16:19] VITALS: BP 87/52
[2019-08-15] MEDS: MULTIVITAMINS WITH MINERALS, THERAPEUTIC TABLET PO SCH (07:54)
[2019-08-15] MEDS: LORazepam 1 MG TABLET PO PRN (07:54)
[2019-08-15] MEDS: BusPIRone HCL 10 MG TABLET PO SCH ×2 (07:54→20:52)
[2019-08-15] MEDS: FOLIC ACID 1 MG TABLET PO SCH (07:54)
[2019-08-15] MEDS: CITALOPRAM HYDROBROMIDE 10 MG TABLET PO SCH (07:54)
[2019-08-15] MEDS: DIVALPROEX SODIUM 500 MG DR TABLET PO SCH ×2 (07:54→20:52)
[2019-08-15 08:30] VITALS: BP 99/56
[2019-08-15] MEDS: HALOPERIDOL 5 MG TABLET PO PRN (11:18)
[2019-08-15 17:39] VITALS: BP 102/81
[2019-08-16] MEDS: BusPIRone HCL 10 MG TABLET PO SCH ×2 (08:36→20:03)
[2019-08-16] MEDS: FOLIC ACID 1 MG TABLET PO SCH (08:36)
[2019-08-16] MEDS: MULTIVITAMINS WITH MINERALS, THERAPEUTIC TABLET PO SCH (08:36)
[2019-08-16] MEDS: DIVALPROEX SODIUM 500 MG DR TABLET PO SCH ×2 (08:36→20:03)
[2019-08-16] MEDS: CITALOPRAM HYDROBROMIDE 10 MG TABLET PO SCH (08:37)
[2019-08-16 09:00] VITALS: BP 114/64
[2019-08-16 16:11] VITALS: BP 108/81
[2019-08-17 08:00] VITALS: BP 96/59
[2019-08-17] MEDS: MULTIVITAMINS WITH MINERALS, THERAPEUTIC TABLET PO SCH (08:57)
[2019-08-17] MEDS: BusPIRone HCL 10 MG TABLET PO SCH ×2 (08:58→20:31)
[2019-08-17] MEDS: DIVALPROEX SODIUM 500 MG DR TABLET PO SCH ×2 (08:58→20:31)
[2019-08-17] MEDS: FOLIC ACID 1 MG TABLET PO SCH (08:58)
[2019-08-17] MEDS: CITALOPRAM HYDROBROMIDE 10 MG TABLET PO SCH (08:58)
[2019-08-17 16:33] VITALS: BP 100/78
[2019-08-18] MEDS: FOLIC ACID 1 MG TABLET PO SCH (08:22)
[2019-08-18] MEDS: CITALOPRAM HYDROBROMIDE 10 MG TABLET PO SCH (08:22)
[2019-08-18] MEDS: DIVALPROEX SODIUM 500 MG DR TABLET PO SCH ×2 (08:22→21:00)
[2019-08-18] MEDS: BusPIRone HCL 10 MG TABLET PO SCH ×2 (08:22→21:00)
[2019-08-18] MEDS: MULTIVITAMINS WITH MINERALS, THERAPEUTIC TABLET PO SCH (08:22)
[2019-08-18] MEDS: LORazepam 1 MG TABLET PO PRN (08:24)
[2019-08-18 10:34] VITALS: BP 100/65
[2019-08-18 16:35] VITALS: BP 98/48
[2019-08-19 08:20] VITALS: BP 100/51
[2019-08-19] MEDS: FOLIC ACID 1 MG TABLET PO SCH (08:30)
[2019-08-19] MEDS: MULTIVITAMINS WITH MINERALS, THERAPEUTIC TABLET PO SCH (08:30)
[2019-08-19] MEDS: BusPIRone HCL 10 MG TABLET PO SCH ×2 (08:30→21:14)
[2019-08-19] MEDS: CITALOPRAM HYDROBROMIDE 10 MG TABLET PO SCH (08:30)
[2019-08-19] MEDS: DIVALPROEX SODIUM 500 MG DR TABLET PO SCH ×2 (08:30→21:14)
[2019-08-19 16:00] VITALS: BP 70/56
[2019-08-20] MEDS: CITALOPRAM HYDROBROMIDE 10 MG TABLET PO SCH (08:14)
[2019-08-20] MEDS: MULTIVITAMINS WITH MINERALS, THERAPEUTIC TABLET PO SCH (08:14)
[2019-08-20] MEDS: DIVALPROEX SODIUM 500 MG DR TABLET PO SCH (08:14)
[2019-08-20] MEDS: FOLIC ACID 1 MG TABLET PO SCH (08:15)
[2019-08-20] MEDS: BusPIRone HCL 10 MG TABLET PO SCH (08:15)
[2019-08-20 08:32] VITALS: BP 114/71
[2019-08-20] MEDS ORDERED: BUSP10TA23 PO (09:46)
[2019-08-20] MEDS ORDERED: DIVA-78 PO (09:46)
[2019-08-20] MEDS ORDERED: PALI234D IM (09:46)
[2019-08-20] MEDS ORDERED: CITA10TA68 PO (09:46)
== END 2019-08-20 16:00 | disposition home or self-care (01) | DRG 885 ==
LOC: EMS 18:47 → 3EX 23:21
PROC: 3E0234Z Introduction of Serum, Toxoid and Vaccine into Muscle, Percutaneous Approach (ICD-10-PCS; principal; 2019-08-03)
DX: F25.1 Schizoaffective disorder, depressive type (principal); F79 Unspecified intellectual disabilities; E44.1 Mild protein-calorie malnutrition; R45.851 Suicidal ideations; D64.9 Anemia, unspecified; D72.819 Decreased white blood cell count, unspecified; K59.00 Constipation, unspecified; Z23 Encounter for immunization
CPT/HCPCS: 80307; 84439; 87081; 90732; G0378; G0480

== ENCOUNTER 2019-08-25 09:06 | Inpatient (IN) | payer MEDICARE, MEDICAID ==
[~2019-08-25] VITALS: Ht 160 cm; Wt 64.2 kg
[2019-08-25 09:40] LABS: BASOPHILS % (AUTO) 0.5 % (0.0-2.0); EOSINOPHILS % (AUTO) 1.8 % (1.0-6.0); HEMATOCRIT 36.4 % (36-46); HEMOGLOBIN 12.1 g/dL (12.0-16.0); LYMPHOCYTES # (AUTO) 1.5 K/uL (1.0-4.8); LYMPHOCYTES % (AUTO) 35.2 % (22.0-44.0); MEAN CORPUSCULAR HEMOGLOBIN 29.3 pg (26.0-34.0); MEAN CORPUSCULAR HGB CONC 33.3 G/dL (31.0-37.0); MEAN CORPUSCULAR VOLUME 88 fL (80-100); MONOCYTES # (AUTO) 0.3 K/uL (0.1-1.0); MONOCYTES % (AUTO) 6.6 % (2.0-9.0); NEUTROPHILS # (AUTO) 2.4 K/uL (1.8-7.7); NEUTROPHILS % (AUTO) 55.9 % (40.0-70.0); PLATELET COUNT (AUTO) 135 K/uL (150-450); RED BLOOD CELL COUNT(AUTO) 4.14 MIL/uL (4.00-5.20); RED CELL DISTRIBUTION WIDTH 14.7 % (11.5-14.5)
[2019-08-25 09:48] LABS: ANION GAP 7 mmol/L (8-16); CALCIUM, TOTAL 8.6 mg/dL (8.8-10.5); CARBON DIOXIDE 26 mmol/L (22-29); CHLORIDE 108 mmol/L (98-107); CREATININE 0.84 mg/dL (0.60-1.30); GLOMERULAR FILTR. RATE CALC > 60 mL/min (>60); GLUCOSE,RANDOM 77 mg/dL (70-110); POTASSIUM 4.4 mmol/L (3.5-5.1); SODIUM SERUM 141 mmol/L (136-145); UREA NITROGEN, BLOOD 10 mg/dL (7-18)
[2019-08-25 09:59] LABS: ALANINE AMINOTRANSFERASE 8 U/L (12-78); ALBUMIN 3.5 g/dL (3.4-5.0); ALKALINE PHOSPHATASE 23 U/L (46-116); ASPARTATE AMINOTRANSFERASE 8 U/L (15-37); BILIRUBIN,TOTAL 0.4 mg/dL (0.1-1.0); HCG,QUANTITATIVE < 1 mIU/mL (0-6); TOTAL PROTEIN, SERUM 6.6 g/dL (6.4-8.2)
[2019-08-25 11:14] LABS: AMPHET/METH SCREEN,URINE NEGATIVE (NEGATIVE); BARBITURATE SCREEN, URINE NEGATIVE (NEGATIVE); BENZODIAZEPINES SCREEN,URINE NEGATIVE (NEGATIVE); CANNABINOID SCREEN,URINE NEGATIVE (NEGATIVE); COCAINE SCREEN,URINE NEGATIVE (NEGATIVE); METHADONE SCREEN, URINE NEGATIVE (NEGATIVE); OPIATE SCREEN,URINE NEGATIVE (NEGATIVE)
[2019-08-25 11:17] LABS: PHENCYCLIDINE SCREEN,URINE NEGATIVE (NEGATIVE)
[2019-08-25] MEDS ORDERED: HALOPERIDOL 5 MG TABLET PO PRN (12:30)
[2019-08-25] MEDS ORDERED: ZOLPIDEM TARTRATE 10 MG TABLET PO PRN (12:30)
[2019-08-25] MEDS ORDERED: NICOTINE 14 MG/24 HOUR PATCH TD PRN (15:30)
[2019-08-25] MEDS ORDERED: LOPERAMIDE HCL 2 MG CAPSULE PO PRN (15:30)
[2019-08-25] MEDS ORDERED: GuaiFENesin/D-METHORPHAN [SUGAR-FREE] 200-20MG/10 ML SYRUP UDCUP PO PRN (15:30)
[2019-08-25] MEDS ORDERED: MAG HYDROX/AL HYDROX/SIMETH ES 30 ML SUSPENSION UDCUP PO PRN (15:30)
[2019-08-25] MEDS ORDERED: CloNIDine HCL 0.1 MG TABLET PO PRN (15:30)
[2019-08-25] MEDS ORDERED: ACETAMINOPHEN 325 MG TABLET PO PRN (15:30)
[2019-08-25] MEDS ORDERED: IBUPROFEN 400 MG TABLET PO PRN (15:30)
[2019-08-25] MEDS ORDERED: DOCUSATE SODIUM 100 MG CAPSULE PO PRN (15:30)
[2019-08-25] MEDS ORDERED: ONDANSETRON HCL 4 MG TABLET PO PRN (15:30)
[2019-08-25] MEDS ORDERED: ALBUTEROL SULFATE HFA 90 MCG/PUFF 8 GM INHALER IH PRN (15:30)
[2019-08-25] MEDS ORDERED: MAGNESIUM HYDROXIDE SUSPENSION 30 ML UDCUP PO PRN (15:30)
[2019-08-25] MEDS ORDERED: PETROLATUM,WHITE 28 GM JELLY TP PRN (15:30)
[2019-08-25 16:13] VITALS: BP 107/67
[2019-08-26 06:06] VITALS: BP 102/58
[2019-08-26] MEDS: DIVALPROEX SODIUM 500 MG DR TABLET PO SCH ×2 (12:03→20:49)
[2019-08-26] MEDS: CITALOPRAM HYDROBROMIDE 10 MG TABLET PO SCH (12:04)
[2019-08-26] MEDS: BusPIRone HCL 10 MG TABLET PO SCH ×2 (12:04→20:49)
[2019-08-26 16:55] VITALS: BP 118/66
[2019-08-27 05:50] VITALS: BP 110/63
[2019-08-27] MEDS: BusPIRone HCL 10 MG TABLET PO SCH ×2 (08:08→20:32)
[2019-08-27] MEDS: CITALOPRAM HYDROBROMIDE 10 MG TABLET PO SCH (08:08)
[2019-08-27] MEDS: DIVALPROEX SODIUM 500 MG DR TABLET PO SCH ×2 (08:08→20:32)
[2019-08-27 11:19] VITALS: BP 93/58
[2019-08-27 18:47] VITALS: BP 129/82
[2019-08-27 19:22] VITALS: BP 98/68
[2019-08-28 08:23] VITALS: BP 108/67
[2019-08-28] MEDS: BusPIRone HCL 10 MG TABLET PO SCH ×2 (08:37→20:42)
[2019-08-28] MEDS: DIVALPROEX SODIUM 500 MG DR TABLET PO SCH ×2 (08:38→20:42)
[2019-08-28] MEDS: CITALOPRAM HYDROBROMIDE 10 MG TABLET PO SCH (08:46)
[2019-08-28] MEDS: LORazepam 2 MG TABLET PO PRN (10:52)
[2019-08-28 16:09] VITALS: BP 101/63
[2019-08-29] MEDS: BusPIRone HCL 10 MG TABLET PO SCH ×2 (09:25→20:34)
[2019-08-29] MEDS: CITALOPRAM HYDROBROMIDE 10 MG TABLET PO SCH (09:26)
[2019-08-29] MEDS: DIVALPROEX SODIUM 500 MG DR TABLET PO SCH ×2 (09:26→20:34)
[2019-08-29] MEDS: LORazepam 2 MG TABLET PO PRN (11:33)
[2019-08-29 14:13] VITALS: BP 90/55
[2019-08-29 16:24] VITALS: BP 101/61
[2019-08-29 16:36] LABS: GLUCOMETER DEV NAME(LOC) BV2X.; GLUCOSE,POINT OF CARE 355 MG/DL (70-110)
[2019-08-30 05:13] VITALS: BP 106/61
[2019-08-30] MEDS: DIVALPROEX SODIUM 500 MG DR TABLET PO SCH ×2 (08:13→21:00)
[2019-08-30] MEDS: BusPIRone HCL 10 MG TABLET PO SCH ×2 (08:14→21:00)
[2019-08-30] MEDS: CITALOPRAM HYDROBROMIDE 10 MG TABLET PO SCH (08:14)
[2019-08-30 08:29] VITALS: BP 100/60
[2019-08-30] MEDS ORDERED: -PHARMACY VACCINE NOTE- MISC ONE (14:00)
[2019-08-31 07:25] VITALS: BP 98/59
[2019-08-31 08:00] VITALS: BP 91/60
[2019-08-31] MEDS ORDERED: PALIPERIDONE PALMITATE 234 MG/1.5 ML SYRINGE IM SCH (09:00)
[2019-08-31] MEDS: LORazepam 2 MG TABLET PO PRN (09:14)
[2019-08-31] MEDS: DIVALPROEX SODIUM 500 MG DR TABLET PO SCH ×2 (09:14→20:37)
[2019-08-31] MEDS: BusPIRone HCL 10 MG TABLET PO SCH ×2 (09:15→20:37)
[2019-08-31] MEDS: CITALOPRAM HYDROBROMIDE 10 MG TABLET PO SCH (09:15)
[2019-08-31 16:32] VITALS: BP 80/62
[2019-08-31 16:54] VITALS: BP 103/60
[2019-09-01 09:16] VITALS: BP 102/65
[2019-09-01] MEDS: DIVALPROEX SODIUM 500 MG DR TABLET PO SCH ×2 (10:06→20:16)
[2019-09-01] MEDS: BusPIRone HCL 10 MG TABLET PO SCH ×2 (10:06→20:16)
[2019-09-01] MEDS: CITALOPRAM HYDROBROMIDE 10 MG TABLET PO SCH (10:06)
[2019-09-01 16:09] VITALS: BP 101/67
[2019-09-02 06:44] VITALS: BP 99/62
[2019-09-02] MEDS: BusPIRone HCL 10 MG TABLET PO SCH ×3 (09:22→21:00)
[2019-09-02] MEDS: CITALOPRAM HYDROBROMIDE 10 MG TABLET PO SCH (09:22)
[2019-09-02] MEDS: DIVALPROEX SODIUM 500 MG DR TABLET PO SCH ×3 (09:22→21:00)
[2019-09-02 09:38] VITALS: BP 109/65
[2019-09-03] MEDS: DIVALPROEX SODIUM 500 MG DR TABLET PO SCH ×2 (08:52→21:18)
[2019-09-03] MEDS: CITALOPRAM HYDROBROMIDE 10 MG TABLET PO SCH (08:53)
[2019-09-03] MEDS: BusPIRone HCL 10 MG TABLET PO SCH ×2 (08:53→21:18)
[2019-09-03 16:37] VITALS: BP 105/61
[2019-09-04 08:13] VITALS: BP_SYST 104
[2019-09-04 08:25] LABS: ANION GAP 7 mmol/L (8-16); CALCIUM, TOTAL 8.7 mg/dL (8.8-10.5); CARBON DIOXIDE 27 mmol/L (22-29); CHLORIDE 107 mmol/L (98-107); CREATININE 0.73 mg/dL (0.60-1.30); GLOMERULAR FILTR. RATE CALC > 60 mL/min (>60); GLUCOSE,RANDOM 86 mg/dL (70-110); POTASSIUM 4.7 mmol/L (3.5-5.1); SODIUM SERUM 141 mmol/L (136-145); UREA NITROGEN, BLOOD 17 mg/dL (7-18)
[2019-09-04] MEDS: CITALOPRAM HYDROBROMIDE 10 MG TABLET PO SCH (08:58)
[2019-09-04] MEDS: DIVALPROEX SODIUM 500 MG DR TABLET PO SCH ×2 (08:58→20:28)
[2019-09-04] MEDS: BusPIRone HCL 10 MG TABLET PO SCH ×2 (08:58→20:28)
[2019-09-04] MEDS: LORazepam 2 MG TABLET PO PRN (16:14)
[2019-09-04 16:17] VITALS: BP 108/64
[2019-09-05 08:03] VITALS: BP 90/49
[2019-09-05] MEDS: BusPIRone HCL 10 MG TABLET PO SCH ×3 (09:00→20:41)
[2019-09-05] MEDS: DIVALPROEX SODIUM 500 MG DR TABLET PO SCH ×3 (09:00→20:41)
[2019-09-05] MEDS: CITALOPRAM HYDROBROMIDE 10 MG TABLET PO SCH ×2 (09:00→10:46)
[2019-09-05 15:11] VITALS: BP 117/70
[2019-09-05 17:02] VITALS: BP 121/72
[2019-09-05] MEDS: LORazepam 2 MG TABLET PO PRN (17:35)
[2019-09-06] MEDS: BusPIRone HCL 10 MG TABLET PO SCH ×2 (08:45→20:30)
[2019-09-06] MEDS: CITALOPRAM HYDROBROMIDE 10 MG TABLET PO SCH (08:45)
[2019-09-06] MEDS: DIVALPROEX SODIUM 500 MG DR TABLET PO SCH ×2 (08:45→20:31)
[2019-09-06 17:03] VITALS: BP 101/64
[2019-09-07] MEDS: CITALOPRAM HYDROBROMIDE 10 MG TABLET PO SCH (09:17)
[2019-09-07] MEDS: BusPIRone HCL 10 MG TABLET PO SCH ×2 (09:17→20:35)
[2019-09-07] MEDS: DIVALPROEX SODIUM 500 MG DR TABLET PO SCH ×2 (09:17→20:35)
[2019-09-07 16:08] VITALS: BP 104/61
[2019-09-08 04:48] VITALS: BP 129/60
[2019-09-08 08:23] VITALS: BP 107/62
[2019-09-08] MEDS: DIVALPROEX SODIUM 500 MG DR TABLET PO SCH ×3 (09:00→10:30)
[2019-09-08] MEDS: BusPIRone HCL 10 MG TABLET PO SCH ×3 (09:00→10:30)
[2019-09-08] MEDS: CITALOPRAM HYDROBROMIDE 10 MG TABLET PO SCH ×3 (09:00→10:30)
[2019-09-08] MEDS ORDERED: BUSP10TA23 PO (11:05)
[2019-09-08] MEDS ORDERED: DIVA-78 PO (11:05)
[2019-09-08] MEDS ORDERED: PALI234D IM (11:05)
[2019-09-08] MEDS ORDERED: CITA10TA68 PO (11:05)
== END 2019-09-08 13:59 | disposition home or self-care (01) | DRG 885 ==
LOC: EMS 09:08 → B2X 13:03
DX: F25.1 Schizoaffective disorder, depressive type (principal); F79 Unspecified intellectual disabilities; E44.1 Mild protein-calorie malnutrition; R45.851 Suicidal ideations; D72.819 Decreased white blood cell count, unspecified; D64.9 Anemia, unspecified; Z68.25 Body mass index [BMI] 25.0-25.9, adult
CPT/HCPCS: 87081; G0480

== ENCOUNTER 2019-09-11 11:18 | Emergency (ER) | payer MEDICARE, MEDICAID ==
[~2019-09-11] VITALS: Ht 160 cm; Wt 68.2 kg
[2019-09-11 13:00] VITALS: BP 118/86
== END 2019-09-11 13:21 | disposition home or self-care (01) ==
LOC: EMS 11:23
DX: F25.1 Schizoaffective disorder, depressive type (principal); F79 Unspecified intellectual disabilities; Z79.899 Other long term (current) drug therapy; Z88.0 Allergy status to penicillin

== ENCOUNTER 2019-09-29 10:14 | Emergency (ER) | payer MEDICARE, MEDICAID ==
[~2019-09-29] VITALS: Ht 160 cm; Wt 68.6 kg
[2019-09-29] MEDS ORDERED: CITA40TA6 PO (10:48)
[2019-09-29] MEDS ORDERED: ERGO500054 PO (10:48)
[2019-09-29] MEDS ORDERED: HYDR50CA9 PO (10:48)
[2019-09-29 11:20] LABS: BASOPHILS % (AUTO) 0.5 % (0.0-2.0); EOSINOPHILS % (AUTO) 0.3 % (1.0-6.0); HEMATOCRIT 33.8 % (36-46); HEMOGLOBIN 11.4 g/dL (12.0-16.0); LYMPHOCYTES # (AUTO) 1.2 K/uL (1.0-4.8); LYMPHOCYTES % (AUTO) 24.3 % (22.0-44.0); MEAN CORPUSCULAR HGB CONC 33.8 G/dL (31.0-37.0); MEAN CORPUSCULAR VOLUME 89 fL (80-100); MONOCYTES # (AUTO) 0.4 K/uL (0.1-1.0); MONOCYTES % (AUTO) 8.7 % (2.0-9.0); NEUTROPHILS # (AUTO) 3.3 K/uL (1.8-7.7); NEUTROPHILS % (AUTO) 66.2 % (40.0-70.0); PLATELET COUNT (AUTO) 140 K/uL (150-450); RED BLOOD CELL COUNT(AUTO) 3.82 MIL/uL (4.00-5.20); RED CELL DISTRIBUTION WIDTH 13.6 % (11.5-14.5)
[2019-09-29 11:32] LABS: ANION GAP 7 mmol/L (8-16); CARBON DIOXIDE 28 mmol/L (22-29); CHLORIDE 108 mmol/L (98-107); CREATININE 0.68 mg/dL (0.60-1.30); GLUCOSE,RANDOM 83 mg/dL (70-110); POTASSIUM 4.1 mmol/L (3.5-5.1); SODIUM SERUM 143 mmol/L (136-145); UREA NITROGEN, BLOOD 14 mg/dL (7-18)
[2019-09-29 11:33] LABS: CALCIUM, TOTAL 8.8 mg/dL (8.8-10.5); GLOMERULAR FILTR. RATE CALC > 60 mL/min (>60)
[2019-09-29 11:41] LABS: ALANINE AMINOTRANSFERASE 9 U/L (12-78); ALBUMIN 3.3 g/dL (3.4-5.0); ALKALINE PHOSPHATASE 25 U/L (46-116); ASPARTATE AMINOTRANSFERASE 7 U/L (15-37); BILIRUBIN,TOTAL 0.3 mg/dL (0.1-1.0); TOTAL PROTEIN, SERUM 6.3 g/dL (6.4-8.2)
[2019-09-29 15:05] VITALS: BP 104/69
== END 2019-09-29 15:08 | disposition home or self-care (01) ==
LOC: EMS 10:16
DX: F79 Unspecified intellectual disabilities (principal); R45.851 Suicidal ideations; F20.9 Schizophrenia, unspecified; Z88.0 Allergy status to penicillin
CPT/HCPCS: 36415; 80053; 85025; 99285; G0480

== ENCOUNTER 2020-05-19 12:15 | Inpatient (IN) | payer MEDICARE, MEDICAID ==
[~2020-05-19] VITALS: Ht 170.2 cm; Wt 52.1 kg
[~2020-05-19 12:15] MED LIST changes: -CITA10TA68 PO; +CITA40TA6 PO; +DIVA-112 PO; -DIVA-78 PO; +ERGO500054 PO; +HYDR50CA9 PO
[2020-05-19 13:00] LABS: LYMPHOCYTES # (AUTO) 0.9 K/uL (1.0-4.8); MEAN CORPUSCULAR VOLUME 100 fL (80-100); MONOCYTES # (AUTO) 0.3 K/uL (0.1-1.0); NEUTROPHILS # (AUTO) 1.8 K/uL (1.8-7.7); RED CELL DISTRIBUTION WIDTH 12.9 % (11.5-14.5)
[2020-05-19 13:03] LABS: BASOPHILS % (AUTO) 0.2 % (0.0-2.0); EOSINOPHILS % (AUTO) 0.1 % (1.0-6.0); HEMATOCRIT 30.3 % (36-46); HEMOGLOBIN 10.2 g/dL (12.0-16.0); LYMPHOCYTES % (AUTO) 30.6 % (22.0-44.0); MEAN CORPUSCULAR HEMOGLOBIN 33.9 pg (26.0-34.0); MEAN CORPUSCULAR HGB CONC 33.8 G/dL (31.0-37.0); NEUTROPHILS % (AUTO) 60.1 % (40.0-70.0); RED BLOOD CELL COUNT(AUTO) 3.02 MIL/uL (4.00-5.20)
[2020-05-19 13:10] LABS: ANION GAP 3 mmol/L (8-16); CALCIUM, TOTAL 8.7 mg/dL (8.8-10.5); CARBON DIOXIDE 31 mmol/L (22-29); CHLORIDE 105 mmol/L (98-107); CREATININE 0.63 mg/dL (0.60-1.30); GLOMERULAR FILTR. RATE CALC > 60 mL/min (>60); GLUCOSE,RANDOM 84 mg/dL (70-110); POTASSIUM 3.9 mmol/L (3.5-5.1); SODIUM SERUM 139 mmol/L (136-145); UREA NITROGEN, BLOOD 11 mg/dL (7-18)
[2020-05-19 13:17] LABS: ALANINE AMINOTRANSFERASE 11 U/L (12-78); ALBUMIN 2.6 g/dL (3.4-5.0); ALKALINE PHOSPHATASE 18 U/L (46-116); ASPARTATE AMINOTRANSFERASE 15 U/L (15-37); BILIRUBIN,TOTAL 0.5 mg/dL (0.1-1.0); TOTAL PROTEIN, SERUM 5.1 g/dL (6.4-8.2)
[2020-05-19 13:26] LABS: PLATELET COUNT (AUTO) 26 K/uL (150-450)
[2020-05-19 13:29] LABS: APPEARANCE,URINE CLOUDY (CLEAR); BILIRUBIN,URINE NEGATIVE (NEGATIVE); GLUCOSE, URINE (UA) NEGATIVE (NEGATIVE); KETONES,URINE 15 mg/dL (NEGATIVE); LEUKOCYTE ESTERASE ,URINE SMALL (NEGATIVE); NITRATE,URINE NEGATIVE (NEGATIVE); OCCULT BLOOD,URINE NEGATIVE (NEGATIVE); PH,URINE 6.5 (5.0-8.0); PROTEIN,URINE NEGATIVE (NEGATIVE)
[2020-05-19 13:33] LABS: AMPHET/METH SCREEN,URINE NEGATIVE (NEGATIVE); BARBITURATE SCREEN, URINE NEGATIVE (NEGATIVE); BENZODIAZEPINES SCREEN,URINE NEGATIVE (NEGATIVE); CANNABINOID SCREEN,URINE NEGATIVE (NEGATIVE); COCAINE SCREEN,URINE NEGATIVE (NEGATIVE); METHADONE SCREEN, URINE NEGATIVE (NEGATIVE); OPIATE SCREEN,URINE NEGATIVE (NEGATIVE)
[2020-05-19 13:37] LABS: BACTERIA,URINE None Seen /HPF (None Seen); RBC,URINE 0-2 /HPF (0-2); SQUAMOUS EPITHELIAL CELL,UR Few /LPF (None Seen)
[2020-05-19 13:41] LABS: PHENCYCLIDINE SCREEN,URINE NEGATIVE (NEGATIVE)
[2020-05-19] MEDS ORDERED: SODIUM CHLORIDE 0.9% 1,000 ML IV ONE ×3 (13:45→18:15)
[2020-05-19 13:46] LABS: INR 1.2 (0.9-1.1)
[2020-05-19 13:54] LABS: B-TYPE NATRIURETIC PEPTIDE 51 pg/mL (0-100)
[2020-05-19] MEDS ORDERED: SODIUM CHLORIDE 0.9% 2,200 ML IV ONE (14:16)
[2020-05-19 14:19] LABS: CREATINE KINASE, TOTAL ONLY 9 U/L (26-192)
[2020-05-19 14:24] LABS: ACETAMINOPHEN < 2 mcg/mL (10-30)
[2020-05-19 14:26] LABS: VALPROIC ACID 161 mcg/mL (50-100)
[2020-05-19 14:35] LABS: SALICYLATE < 2.8 mg/dL (2.8-20.0)
[2020-05-19] MEDS ORDERED: ONDANSETRON HCL 4 MG/2 ML VIAL IVP PRN ×2 (15:30→17:15)
[2020-05-19 15:35] LABS: LIPASE 38 U/L (73-393)
[2020-05-19] MEDS ORDERED: BISACODYL 10 MG RECTAL RECTAL SUPPOSITORY PR PRN (17:15)
[2020-05-19] MEDS ORDERED: MAGNESIUM HYDROXIDE SUSPENSION 30 ML UDCUP PO PRN (17:15)
[2020-05-19] MEDS ORDERED: ZOLPIDEM TARTRATE 5 MG TABLET PO PRN (17:15)
[2020-05-19 18:29] LABS: HEMATOCRIT 28.1 % (36-46); HEMOGLOBIN 9.7 g/dL (12.0-16.0); MEAN CORPUSCULAR HEMOGLOBIN 34.7 pg (26.0-34.0); MEAN CORPUSCULAR HGB CONC 34.6 G/dL (31.0-37.0); MEAN CORPUSCULAR VOLUME 101 fL (80-100); PLATELET COUNT (AUTO) 23 K/uL (150-450); RED CELL DISTRIBUTION WIDTH 13.1 % (11.5-14.5)
[2020-05-19 18:40] LABS: SALICYLATE < 2.8 mg/dL (2.8-20.0)
[2020-05-19 18:43] LABS: ACETAMINOPHEN 4 mcg/mL (10-30); ANION GAP 4 mmol/L (8-16); CALCIUM, TOTAL 7.7 mg/dL (8.8-10.5); CARBON DIOXIDE 27 mmol/L (22-29); CHLORIDE 112 mmol/L (98-107); CREATININE 0.65 mg/dL (0.60-1.30); GLOMERULAR FILTR. RATE CALC > 60 mL/min (>60); GLUCOSE,RANDOM 76 mg/dL (70-110); POTASSIUM 4.3 mmol/L (3.5-5.1); SODIUM SERUM 143 mmol/L (136-145); UREA NITROGEN, BLOOD 7 mg/dL (7-18); VALPROIC ACID 127 mcg/mL (50-100)
[2020-05-19 18:47] LABS: BAND NEUTROPHILS % (MANUAL) 10 % (0-5); LYMPHOCYTES % (MANUAL) 35 % (22-44); MONOCYTES % (MANUAL) 12 % (2-9); SEGMENTED NEUTROPHILS % 43 % (40-70)
[2020-05-19 18:48] LABS: PLATELET MORPHOLOGY COMMENT NOTE; WBC MORPHOLOGY TOXIC VACUOLATION
[2020-05-19 20:00] VITALS: BP 87/56
[2020-05-19] MEDS: DOCUSATE SODIUM 100 MG CAPSULE PO SCH (20:20)
[2020-05-19] MEDS ORDERED: SODIUM CHLORIDE 0.9% 500 ML IV ONE (23:10)
[2020-05-20] VITALS: BP 77/48
[2020-05-20] MEDS ORDERED: SODIUM CHLORIDE 0.9% 500 ML IV ONE (00:34)
[2020-05-20] MEDS: PHENYLEPHRINE 200 MG/D5%-WATER 250 ML IV PRN (02:35)
[2020-05-20 04:00] VITALS: BP 99/55
[2020-05-20 05:44] LABS: TROPONIN I 0.1 ng/mL (0.00-0.05)
[2020-05-20 08:00] VITALS: BP 100/54
[2020-05-20] MEDS: HEPARIN SODIUM,PORCINE 5,000 UNITS/ML VIAL SQ SCH ×3 (08:00→14:37)
[2020-05-20] MEDS: SODIUM CHLORIDE 0.9% 1,000 ML IV SCH ×2 (08:28→20:51)
[2020-05-20] MEDS: PANTOPRAZOLE SODIUM 40 MG DR TABLET PO SCH (09:43)
[2020-05-20] MEDS: DOCUSATE SODIUM 100 MG CAPSULE PO SCH ×2 (09:43→20:51)
[2020-05-20 12:00] VITALS: BP 116/49
[2020-05-20] MEDS: LACTULOSE 20 GM/30 ML SOLUTION UDCUP PO SCH (14:37)
[2020-05-20 16:00] VITALS: BP 100/49
[2020-05-20 20:00] VITALS: BP 96/41
[2020-05-20 21:43] LABS: GLUCOSE,POINT OF CARE 71 MG/DL (70-110)
[2020-05-21] VITALS: BP 81/46
[2020-05-21] MEDS: MORPHINE SULFATE 2 MG/ML SYRINGE IVP PRN (00:32)
[2020-05-21] MEDS: HEPARIN SODIUM,PORCINE 5,000 UNITS/ML VIAL SQ SCH ×3 (00:43→16:00)
[2020-05-21 04:00] VITALS: BP 72/40
[2020-05-21] MEDS: PHENYLEPHRINE 200 MG/D5%-WATER 250 ML IV PRN (06:26)
[2020-05-21 07:21] LABS: BASOPHILS % (AUTO) 0.5 % (0.0-2.0); EOSINOPHILS % (AUTO) 0.2 % (1.0-6.0); HEMOGLOBIN 10.2 g/dL (12.0-16.0); LYMPHOCYTES # (AUTO) 1.8 K/uL (1.0-4.8); LYMPHOCYTES % (AUTO) 36.2 % (22.0-44.0); MEAN CORPUSCULAR HEMOGLOBIN 33.3 pg (26.0-34.0); MEAN CORPUSCULAR HGB CONC 32.9 G/dL (31.0-37.0); MEAN CORPUSCULAR VOLUME 101 fL (80-100); MONOCYTES # (AUTO) 0.7 K/uL (0.1-1.0); MONOCYTES % (AUTO) 13.9 % (2.0-9.0); NEUTROPHILS # (AUTO) 2.5 K/uL (1.8-7.7); NEUTROPHILS % (AUTO) 49.2 % (40.0-70.0); PLATELET COUNT (AUTO) 27 K/uL (150-450); RED BLOOD CELL COUNT(AUTO) 3.06 MIL/uL (4.00-5.20); RED CELL DISTRIBUTION WIDTH 13.1 % (11.5-14.5)
[2020-05-21 07:36] LABS: ANION GAP 6 mmol/L (8-16); CALCIUM, TOTAL 8.8 mg/dL (8.8-10.5); CARBON DIOXIDE 26 mmol/L (22-29); CHLORIDE 110 mmol/L (98-107); CREATININE 0.62 mg/dL (0.60-1.30); GLOMERULAR FILTR. RATE CALC > 60 mL/min (>60); GLUCOSE,RANDOM 89 mg/dL (70-110); POTASSIUM 3.6 mmol/L (3.5-5.1); SODIUM SERUM 142 mmol/L (136-145); UREA NITROGEN, BLOOD 3 mg/dL (7-18)
[2020-05-21 08:00] VITALS: BP 95/56
[2020-05-21 08:29] LABS: ALBUMIN 2.3 g/dL (3.4-5.0)
[2020-05-21] MEDS: PANTOPRAZOLE SODIUM 40 MG DR TABLET PO SCH (09:23)
[2020-05-21] MEDS: DOCUSATE SODIUM 100 MG CAPSULE PO SCH ×2 (09:23→21:00)
[2020-05-21] MEDS: LACTULOSE 20 GM/30 ML SOLUTION UDCUP PO SCH (09:23)
[2020-05-21] MEDS: ALBUMIN HUMAN 25%-50GM/200ML 200 ML IV SCH ×2 (11:31→20:05)
[2020-05-21] MEDS: SODIUM CHLORIDE 0.9% 1,000 ML IV SCH (11:32)
[2020-05-21] MEDS: HYDROCODONE/ACETAMINOPHEN 5-325 MG TABLET PO PRN (11:34)
[2020-05-21 12:00] VITALS: BP 97/50
[2020-05-21 16:00] VITALS: BP_SYST 108; BP_SYST 135; BP_DIAS 55; BP_DIAS 67
[2020-05-21 20:00] VITALS: BP 97/49
[2020-05-22] VITALS (11 sets, daily range): BP systolic 75–132; BP diastolic 47–73
[2020-05-22] MEDS: SODIUM CHLORIDE 0.9% 1,000 ML IV SCH (00:20)
[2020-05-22] MEDS: ALBUMIN HUMAN 25%-50GM/200ML 200 ML IV SCH ×2 (02:53→10:04)
[2020-05-22] MEDS: HEPARIN SODIUM,PORCINE 5,000 UNITS/ML VIAL SQ SCH ×3 (08:00→16:00)
[2020-05-22] MEDS: LACTULOSE 20 GM/30 ML SOLUTION UDCUP PO SCH (08:13)
[2020-05-22] MEDS: PANTOPRAZOLE SODIUM 40 MG DR TABLET PO SCH (08:14)
[2020-05-22] MEDS: DOCUSATE SODIUM 100 MG CAPSULE PO SCH ×2 (08:15→22:57)
[2020-05-22] MEDS: PHENYLEPHRINE 200 MG/D5%-WATER 250 ML IV PRN (08:36)
[2020-05-22 09:09] LABS: BASOPHILS % (AUTO) 0.2 % (0.0-2.0); EOSINOPHILS % (AUTO) 0.1 % (1.0-6.0); HEMATOCRIT 24.9 % (36-46); HEMOGLOBIN 8.4 g/dL (12.0-16.0); LYMPHOCYTES # (AUTO) 0.7 K/uL (1.0-4.8); LYMPHOCYTES % (AUTO) 30.5 % (22.0-44.0); MEAN CORPUSCULAR HEMOGLOBIN 33.8 pg (26.0-34.0); MEAN CORPUSCULAR HGB CONC 33.7 G/dL (31.0-37.0); MEAN CORPUSCULAR VOLUME 100 fL (80-100); MONOCYTES # (AUTO) 0.5 K/uL (0.1-1.0); MONOCYTES % (AUTO) 19.7 % (2.0-9.0); NEUTROPHILS # (AUTO) 1.2 K/uL (1.8-7.7); NEUTROPHILS % (AUTO) 49.5 % (40.0-70.0); PLATELET COUNT (AUTO) 23 K/uL (150-450); RED BLOOD CELL COUNT(AUTO) 2.48 MIL/uL (4.00-5.20); RED CELL DISTRIBUTION WIDTH 13.4 % (11.5-14.5)
[2020-05-22 09:30] LABS: ANION GAP 8 mmol/L (8-16); CALCIUM, TOTAL 8.7 mg/dL (8.8-10.5); CARBON DIOXIDE 27 mmol/L (22-29); CHLORIDE 112 mmol/L (98-107); CREATININE 0.59 mg/dL (0.60-1.30); GLOMERULAR FILTR. RATE CALC > 60 mL/min (>60); GLUCOSE,RANDOM 86 mg/dL (70-110); POTASSIUM 3.8 mmol/L (3.5-5.1); SODIUM SERUM 147 mmol/L (136-145); UREA NITROGEN, BLOOD 2 mg/dL (7-18)
[2020-05-22] MEDS ORDERED: SODIUM CHLORIDE 0.45% 1,000 ML IV ONE (10:45)
[2020-05-22 10:52] LABS: PHOSPHORUS 3.5 mg/dL (2.5-4.9)
[2020-05-22] MEDS: HYDROCODONE/ACETAMINOPHEN 5-325 MG TABLET PO PRN (10:54)
[2020-05-22] MEDS ORDERED: MAGNESIUM SULFATE 4 GM/WATER 100 ML IV PRN (11:45)
[2020-05-22 11:53] LABS: VALPROIC ACID 32 mcg/mL (50-100)
[2020-05-22] MEDS: MAGNESIUM SULFATE 2 GM/WATER 50 ML IV PRN (12:15)
[2020-05-22] MEDS ORDERED: SODIUM CHLORIDE 0.9% 250 ML IV ONE (12:17)
[2020-05-22] MEDS ORDERED: ALBUTEROL SULFATE 2.5 MG/0.5 ML NEB SOLUTION NEB PRN (17:30)
[2020-05-22 19:08] LABS: ABG BASE EXCESS -1.2 mmol/L (-2.0-3.0); ABG CARBOXYHEMOGLOBIN 0.7 % (0.0-3.0); ABG HCO3 23.6 mmol/L (22.0-26.0); ABG METHEMOGLOBIN 0.3 % (0.0-1.5); ABG OXYGEN CONTENT 11.2 mL/dL (15.0-23.0); ABG OXYGEN SATURATION 89.8 % (95.0-98.0); ABG OXYHEMOGLOBIN 88.9 % (94.0-100.0); ABG PCO2 34 mmHg (35-45); ABG PH 7.442 (7.350-7.450); ABG TOTAL HEMOGLOBIN 8.9 G/dL (12.0-18.0); PO2, ARTERIAL BG 59.9 mmHg (80.0-100.0); SOURCE, BLOOD GAS ARTERIAL; TEMPERATURE, FAHRENHEIT, BG 98.5 FAHREN (96.0-98.6)
[2020-05-22 19:09] LABS: O2 DEVICE,BLOOD GAS CANNULA (ROOM AIR); SITE, BLOOD GAS RT RADIAL
[2020-05-22] MEDS: MORPHINE SULFATE 2 MG/ML SYRINGE IVP PRN (22:51)
[2020-05-23 04:17] VITALS: BP 130/80
[2020-05-23] MEDS: ACETAMINOPHEN 325 MG TABLET PO PRN (04:22)
[2020-05-23 07:52] VITALS: BP 91/55
[2020-05-23 08:43] LABS: BASOPHILS % (AUTO) 0.3 % (0.0-2.0); EOSINOPHILS % (AUTO) 0.1 % (1.0-6.0); HEMATOCRIT 27.5 % (36-46); LYMPHOCYTES # (AUTO) 1.2 K/uL (1.0-4.8); LYMPHOCYTES % (AUTO) 27.1 % (22.0-44.0); MEAN CORPUSCULAR HEMOGLOBIN 33.1 pg (26.0-34.0); MEAN CORPUSCULAR HGB CONC 32.6 G/dL (31.0-37.0); MEAN CORPUSCULAR VOLUME 101 fL (80-100); MONOCYTES % (AUTO) 21.3 % (2.0-9.0); NEUTROPHILS # (AUTO) 2.3 K/uL (1.8-7.7); NEUTROPHILS % (AUTO) 51.2 % (40.0-70.0); PLATELET COUNT (AUTO) 43 K/uL (150-450); RED BLOOD CELL COUNT(AUTO) 2.71 MIL/uL (4.00-5.20); RED CELL DISTRIBUTION WIDTH 13.4 % (11.5-14.5)
[2020-05-23 09:02] LABS: ANION GAP 6 mmol/L (8-16); CARBON DIOXIDE 26 mmol/L (22-29); CHLORIDE 109 mmol/L (98-107); CREATININE 0.56 mg/dL (0.60-1.30); GLOMERULAR FILTR. RATE CALC > 60 mL/min (>60); GLUCOSE,RANDOM 82 mg/dL (70-110); POTASSIUM 3.7 mmol/L (3.5-5.1); SODIUM SERUM 141 mmol/L (136-145); UREA NITROGEN, BLOOD 3 mg/dL (7-18)
[2020-05-23] MEDS: HEPARIN SODIUM,PORCINE 5,000 UNITS/ML VIAL SQ SCH ×3 (09:08→16:43)
[2020-05-23] MEDS: DOCUSATE SODIUM 100 MG CAPSULE PO SCH ×2 (09:09→20:58)
[2020-05-23] MEDS: PANTOPRAZOLE SODIUM 40 MG DR TABLET PO SCH (09:09)
[2020-05-23] MEDS: MULTIVITAMINS WITH MINERALS, THERAPEUTIC TABLET PO SCH (09:09)
[2020-05-23] MEDS: LACTULOSE 20 GM/30 ML SOLUTION UDCUP PO SCH (09:09)
[2020-05-23 11:15] VITALS: BP 103/55
[2020-05-23] MEDS: MAGNESIUM OXIDE 400 MG TABLET PO PRN ×3 (11:49→22:51)
[2020-05-23] MEDS ORDERED: SODIUM CHLORIDE 0.9% 250 ML IV ONE (14:05)
[2020-05-23] MEDS: CLINDAMYCIN 600 MG/D5% WATER 50 ML IV SCH ×2 (15:47→20:59)
[2020-05-23] MEDS: LEVOFLOXACIN 750 MG/D5% WATER 150 ML IV SCH (16:42)
[2020-05-23 19:35] VITALS: BP 106/64
[2020-05-23] MEDS: ZOLPIDEM TARTRATE 10 MG TABLET PO PRN (21:02)
[2020-05-23 21:47] LABS: APPEARANCE,URINE CLOUDY (CLEAR); BILIRUBIN,URINE NEGATIVE (NEGATIVE); GLUCOSE, URINE (UA) NEGATIVE (NEGATIVE); KETONES,URINE NEGATIVE (NEGATIVE); LEUKOCYTE ESTERASE ,URINE TRACE (NEGATIVE); NITRATE,URINE NEGATIVE (NEGATIVE); OCCULT BLOOD,URINE NEGATIVE (NEGATIVE); PROTEIN,URINE NEGATIVE (NEGATIVE)
[2020-05-23 21:58] LABS: BACTERIA,URINE Few /HPF (None Seen); RBC,URINE 0-2 /HPF (0-2)
[2020-05-23 21:59] LABS: SQUAMOUS EPITHELIAL CELL,UR Moderate /LPF (None Seen)
[2020-05-23 23:16] VITALS: BP 113/66
[2020-05-24] MEDS: HEPARIN SODIUM,PORCINE 5,000 UNITS/ML VIAL SQ SCH ×3 (00:07→16:15)
[2020-05-24] MEDS: MORPHINE SULFATE 2 MG/ML SYRINGE IVP PRN ×2 (00:08→18:25)
[2020-05-24] MEDS: CLINDAMYCIN 600 MG/D5% WATER 50 ML IV SCH ×3 (04:28→21:19)
[2020-05-24 04:39] VITALS: BP 101/58
[2020-05-24 06:17] LABS: BASOPHILS % (AUTO) 0.1 % (0.0-2.0); EOSINOPHILS % (AUTO) 0.1 % (1.0-6.0); HEMATOCRIT 26.1 % (36-46); HEMOGLOBIN 8.9 g/dL (12.0-16.0); LYMPHOCYTES # (AUTO) 1.3 K/uL (1.0-4.8); LYMPHOCYTES % (AUTO) 33.1 % (22.0-44.0); MEAN CORPUSCULAR HEMOGLOBIN 34.4 pg (26.0-34.0); MEAN CORPUSCULAR VOLUME 101 fL (80-100); MONOCYTES # (AUTO) 0.9 K/uL (0.1-1.0); MONOCYTES % (AUTO) 22.5 % (2.0-9.0); NEUTROPHILS # (AUTO) 1.7 K/uL (1.8-7.7); NEUTROPHILS % (AUTO) 44.2 % (40.0-70.0); PLATELET COUNT (AUTO) 53 K/uL (150-450); RED BLOOD CELL COUNT(AUTO) 2.58 MIL/uL (4.00-5.20); RED CELL DISTRIBUTION WIDTH 13.5 % (11.5-14.5)
[2020-05-24 06:38] LABS: ANION GAP 10 mmol/L (8-16); CARBON DIOXIDE 25 mmol/L (22-29); CHLORIDE 108 mmol/L (98-107); CREATININE 0.71 mg/dL (0.60-1.30); GLOMERULAR FILTR. RATE CALC > 60 mL/min (>60); GLUCOSE,RANDOM 80 mg/dL (70-110); POTASSIUM 3.5 mmol/L (3.5-5.1); SODIUM SERUM 143 mmol/L (136-145); UREA NITROGEN, BLOOD 5 mg/dL (7-18)
[2020-05-24 08:00] VITALS: BP 92/55
[2020-05-24] MEDS: LACTULOSE 20 GM/30 ML SOLUTION UDCUP PO SCH (08:38)
[2020-05-24] MEDS: DOCUSATE SODIUM 100 MG CAPSULE PO SCH ×2 (08:48→21:00)
[2020-05-24] MEDS: MULTIVITAMINS WITH MINERALS, THERAPEUTIC TABLET PO SCH (08:49)
[2020-05-24] MEDS: PANTOPRAZOLE SODIUM 40 MG DR TABLET PO SCH (08:49)
[2020-05-24] MEDS ORDERED: SODIUM CHLORIDE 0.9% 100 ML ONE (11:23)
[2020-05-24] MEDS ORDERED: IOVERSOL 350 MG/ML 100 ML VIAL ONE (11:23)
[2020-05-24 11:34] VITALS: BP 108/56
[2020-05-24] MEDS: LEVOFLOXACIN 750 MG/D5% WATER 150 ML IV SCH (12:30)
[2020-05-24 15:22] VITALS: BP 111/67
[2020-05-24] MEDS: MAGNESIUM SULFATE 2 GM/WATER 50 ML IV PRN (16:06)
[2020-05-24 20:12] VITALS: BP 96/63
[2020-05-24] MEDS: ZOLPIDEM TARTRATE 10 MG TABLET PO PRN (21:18)
[2020-05-24 23:47] VITALS: BP 99/73
[2020-05-25] MEDS: HEPARIN SODIUM,PORCINE 5,000 UNITS/ML VIAL SQ SCH ×3 (00:36→16:00)
[2020-05-25] MEDS: HYDROCODONE/ACETAMINOPHEN 5-325 MG TABLET PO PRN (00:39)
[2020-05-25] MEDS: CLINDAMYCIN 600 MG/D5% WATER 50 ML IV SCH ×3 (04:25→22:42)
[2020-05-25 06:18] LABS: BASOPHILS % (AUTO) 0.2 % (0.0-2.0); EOSINOPHILS % (AUTO) 0.1 % (1.0-6.0); HEMATOCRIT 26.6 % (36-46); LYMPHOCYTES # (AUTO) 1.2 K/uL (1.0-4.8); LYMPHOCYTES % (AUTO) 28.8 % (22.0-44.0); MEAN CORPUSCULAR HEMOGLOBIN 33.9 pg (26.0-34.0); MEAN CORPUSCULAR HGB CONC 33.9 G/dL (31.0-37.0); MEAN CORPUSCULAR VOLUME 100 fL (80-100); MONOCYTES # (AUTO) 0.8 K/uL (0.1-1.0); MONOCYTES % (AUTO) 20.1 % (2.0-9.0); NEUTROPHILS # (AUTO) 2.1 K/uL (1.8-7.7); NEUTROPHILS % (AUTO) 50.8 % (40.0-70.0); RED BLOOD CELL COUNT(AUTO) 2.66 MIL/uL (4.00-5.20)
[2020-05-25 06:40] LABS: ANION GAP 8 mmol/L (8-16); CALCIUM, TOTAL 9.1 mg/dL (8.8-10.5); CARBON DIOXIDE 27 mmol/L (22-29); CHLORIDE 106 mmol/L (98-107); CREATININE 0.57 mg/dL (0.60-1.30); GLOMERULAR FILTR. RATE CALC > 60 mL/min (>60); GLUCOSE,RANDOM 82 mg/dL (70-110); POTASSIUM 3.8 mmol/L (3.5-5.1); SODIUM SERUM 141 mmol/L (136-145); UREA NITROGEN, BLOOD 5 mg/dL (7-18)
[2020-05-25 07:54] VITALS: BP 94/48
[2020-05-25] MEDS: MULTIVITAMINS WITH MINERALS, THERAPEUTIC TABLET PO SCH (08:00)
[2020-05-25] MEDS: PANTOPRAZOLE SODIUM 40 MG DR TABLET PO SCH (08:00)
[2020-05-25] MEDS: LACTULOSE 20 GM/30 ML SOLUTION UDCUP PO SCH (08:01)
[2020-05-25] MEDS: DOCUSATE SODIUM 100 MG CAPSULE PO SCH ×2 (08:01→21:00)
[2020-05-25 10:39] LABS: PLATELET COUNT (AUTO) 64 K/uL (150-450)
[2020-05-25 12:28] VITALS: BP 108/63
[2020-05-25] MEDS: LEVOFLOXACIN 750 MG/D5% WATER 150 ML IV SCH (13:35)
[2020-05-25 16:06] VITALS: BP 112/66
[2020-05-25 19:21] LABS: SPECIMENTYPE,BODY FLUID THORACENTESIS
[2020-05-25 20:50] LABS: APPEARANCE,SPUN,BODY FLUID CLEAR (CLEAR); APPEARANCE,UNSPUN,BODY FLUID HAZY (CLEAR)
[2020-05-25 20:51] LABS: COLOR,BODY FLUID YELLOW (LT YELLOW); LYMPHOCYTES,BODY FLUID 28 %; MONOCYTES,BODY FLUID 10 %; NEUTROPHILS,BODY FLUID 62 %; TOTAL VOLUME,BODY FLUID 150 mL; WBC, BODY FLUID 75 /cu. mm.
[2020-05-25 20:52] LABS: BASOPHILS,BODY FLUID 0 %; EOSINOPHILS,BF (ANAL) 0 %
[2020-05-25 23:08] VITALS: BP 99/71
[2020-05-26] MEDS: ZOLPIDEM TARTRATE 10 MG TABLET PO PRN (00:02)
[2020-05-26 05:00] VITALS: BP 98/63
[2020-05-26] MEDS: CLINDAMYCIN 600 MG/D5% WATER 50 ML IV SCH ×3 (05:46→20:11)
[2020-05-26 07:09] LABS: BASOPHILS % (AUTO) 0.2 % (0.0-2.0); EOSINOPHILS % (AUTO) 0.1 % (1.0-6.0); HEMATOCRIT 26.7 % (36-46); HEMOGLOBIN 8.9 g/dL (12.0-16.0); MEAN CORPUSCULAR HEMOGLOBIN 33.6 pg (26.0-34.0); MEAN CORPUSCULAR HGB CONC 33.5 G/dL (31.0-37.0); MEAN CORPUSCULAR VOLUME 100 fL (80-100); MONOCYTES # (AUTO) 0.9 K/uL (0.1-1.0); MONOCYTES % (AUTO) 19.6 % (2.0-9.0); NEUTROPHILS # (AUTO) 2.6 K/uL (1.8-7.7); NEUTROPHILS % (AUTO) 57.1 % (40.0-70.0); PLATELET COUNT (AUTO) 77 K/uL (150-450); RED BLOOD CELL COUNT(AUTO) 2.66 MIL/uL (4.00-5.20); RED CELL DISTRIBUTION WIDTH 13.3 % (11.5-14.5)
[2020-05-26 07:26] LABS: ANION GAP 9 mmol/L (8-16); CALCIUM, TOTAL 8.9 mg/dL (8.8-10.5); CARBON DIOXIDE 26 mmol/L (22-29); CHLORIDE 104 mmol/L (98-107); CREATININE 0.54 mg/dL (0.60-1.30); GLOMERULAR FILTR. RATE CALC > 60 mL/min (>60); GLUCOSE,RANDOM 78 mg/dL (70-110); POTASSIUM 3.9 mmol/L (3.5-5.1); SODIUM SERUM 139 mmol/L (136-145); UREA NITROGEN, BLOOD 6 mg/dL (7-18)
[2020-05-26 07:40] VITALS: BP 100/73
[2020-05-26] MEDS: ERGOCALCIFEROL (VIT D2) 50,000 UNITS [1,250 MCG] CAPSULE PO SCH (08:03)
[2020-05-26] MEDS: PANTOPRAZOLE SODIUM 40 MG DR TABLET PO SCH (08:03)
[2020-05-26] MEDS: DOCUSATE SODIUM 100 MG CAPSULE PO SCH ×2 (08:03→20:11)
[2020-05-26] MEDS: MULTIVITAMINS WITH MINERALS, THERAPEUTIC TABLET PO SCH (08:03)
[2020-05-26] MEDS: HEPARIN SODIUM,PORCINE 5,000 UNITS/ML VIAL SQ SCH ×3 (08:08→16:09)
[2020-05-26 11:49] VITALS: BP 97/71
[2020-05-26] MEDS: LEVOFLOXACIN 750 MG/D5% WATER 150 ML IV SCH (13:39)
[2020-05-26 15:04] VITALS: BP 107/68
[2020-05-26] MEDS: HYDROCODONE/ACETAMINOPHEN 5-325 MG TABLET PO PRN (17:35)
[2020-05-26 19:58] VITALS: BP 104/69
[2020-05-27] VITALS (7 sets, daily range): BP systolic 95–105; BP diastolic 64–72
[2020-05-27] MEDS: CLINDAMYCIN 600 MG/D5% WATER 50 ML IV SCH ×3 (05:15→21:25)
[2020-05-27 06:34] LABS: BASOPHILS % (AUTO) 0.3 % (0.0-2.0); EOSINOPHILS % (AUTO) 0.1 % (1.0-6.0); HEMOGLOBIN 9.4 g/dL (12.0-16.0); LYMPHOCYTES # (AUTO) 1.1 K/uL (1.0-4.8); LYMPHOCYTES % (AUTO) 21.1 % (22.0-44.0); MEAN CORPUSCULAR HEMOGLOBIN 34.8 pg (26.0-34.0); MEAN CORPUSCULAR HGB CONC 34.8 G/dL (31.0-37.0); MEAN CORPUSCULAR VOLUME 100 fL (80-100); MONOCYTES # (AUTO) 0.8 K/uL (0.1-1.0); MONOCYTES % (AUTO) 15.1 % (2.0-9.0); NEUTROPHILS # (AUTO) 3.3 K/uL (1.8-7.7); NEUTROPHILS % (AUTO) 63.4 % (40.0-70.0); PLATELET COUNT (AUTO) 82 K/uL (150-450); RED BLOOD CELL COUNT(AUTO) 2.71 MIL/uL (4.00-5.20); RED CELL DISTRIBUTION WIDTH 13.5 % (11.5-14.5)
[2020-05-27 07:16] LABS: ALANINE AMINOTRANSFERASE 16 U/L (12-78); ALBUMIN 3.2 g/dL (3.4-5.0); ALKALINE PHOSPHATASE 11 U/L (46-116); ANION GAP 3 mmol/L (8-16); ASPARTATE AMINOTRANSFERASE 24 U/L (15-37); BILIRUBIN,TOTAL 1.1 mg/dL (0.1-1.0); CARBON DIOXIDE 27 mmol/L (22-29); CHLORIDE 99 mmol/L (98-107); CREATININE 0.47 mg/dL (0.60-1.30); GLOMERULAR FILTR. RATE CALC > 60 mL/min (>60); GLUCOSE,RANDOM 78 mg/dL (70-110); POTASSIUM 3.6 mmol/L (3.5-5.1); SODIUM SERUM 129 mmol/L (136-145); TOTAL PROTEIN, SERUM 5.6 g/dL (6.4-8.2); UREA NITROGEN, BLOOD 4 mg/dL (7-18)
[2020-05-27] MEDS: HEPARIN SODIUM,PORCINE 5,000 UNITS/ML VIAL SQ SCH ×4 (08:00→23:28)
[2020-05-27] MEDS: MULTIVITAMINS WITH MINERALS, THERAPEUTIC TABLET PO SCH (08:10)
[2020-05-27] MEDS: DOCUSATE SODIUM 100 MG CAPSULE PO SCH ×2 (08:10→21:25)
[2020-05-27] MEDS: PANTOPRAZOLE SODIUM 40 MG DR TABLET PO SCH (08:10)
[2020-05-27] MEDS ORDERED: SODIUM CHLORIDE 0.9% 250 ML IV ONE (11:45)
[2020-05-27] MEDS: LEVOFLOXACIN 750 MG/D5% WATER 150 ML IV SCH (12:11)
[2020-05-27 13:56] LABS: SODIUM SERUM 134 mmol/L (136-145)
[2020-05-27 20:40] LABS: LACTATE DEHYDROGENASE 228 U/L (81-234)
[2020-05-28 04:28] VITALS: BP 94/57
[2020-05-28] MEDS: CLINDAMYCIN 600 MG/D5% WATER 50 ML IV SCH ×3 (05:48→22:19)
[2020-05-28 07:18] LABS: BASOPHILS % (AUTO) 0.3 % (0.0-2.0); EOSINOPHILS % (AUTO) 0.1 % (1.0-6.0); HEMOGLOBIN 9.7 g/dL (12.0-16.0); LYMPHOCYTES # (AUTO) 1.1 K/uL (1.0-4.8); LYMPHOCYTES % (AUTO) 25.6 % (22.0-44.0); MEAN CORPUSCULAR HEMOGLOBIN 34.6 pg (26.0-34.0); MEAN CORPUSCULAR HGB CONC 34.5 G/dL (31.0-37.0); MEAN CORPUSCULAR VOLUME 100 fL (80-100); MONOCYTES # (AUTO) 0.5 K/uL (0.1-1.0); MONOCYTES % (AUTO) 12.1 % (2.0-9.0); NEUTROPHILS # (AUTO) 2.8 K/uL (1.8-7.7); NEUTROPHILS % (AUTO) 61.9 % (40.0-70.0); PLATELET COUNT (AUTO) 94 K/uL (150-450); RED BLOOD CELL COUNT(AUTO) 2.79 MIL/uL (4.00-5.20); RED CELL DISTRIBUTION WIDTH 13.3 % (11.5-14.5)
[2020-05-28 08:23] LABS: ALANINE AMINOTRANSFERASE 17 U/L (12-78); ALBUMIN 3.5 g/dL (3.4-5.0); ALKALINE PHOSPHATASE 19 U/L (46-116); ANION GAP 12 mmol/L (8-16); ASPARTATE AMINOTRANSFERASE 21 U/L (15-37); BILIRUBIN,TOTAL 1.1 mg/dL (0.1-1.0); CALCIUM, TOTAL 9.3 mg/dL (8.8-10.5); CARBON DIOXIDE 24 mmol/L (22-29); CHLORIDE 100 mmol/L (98-107); GLOMERULAR FILTR. RATE CALC > 60 mL/min (>60); GLUCOSE,RANDOM 83 mg/dL (70-110); POTASSIUM 3.8 mmol/L (3.5-5.1); SODIUM SERUM 136 mmol/L (136-145); TOTAL PROTEIN, SERUM 5.9 g/dL (6.4-8.2); UREA NITROGEN, BLOOD 5 mg/dL (7-18)
[2020-05-28 08:35] VITALS: BP 98/62
[2020-05-28] MEDS: HEPARIN SODIUM,PORCINE 5,000 UNITS/ML VIAL SQ SCH ×2 (08:56→16:26)
[2020-05-28] MEDS: PANTOPRAZOLE SODIUM 40 MG DR TABLET PO SCH (08:56)
[2020-05-28] MEDS: DOCUSATE SODIUM 100 MG CAPSULE PO SCH ×2 (08:56→20:41)
[2020-05-28] MEDS: MULTIVITAMINS WITH MINERALS, THERAPEUTIC TABLET PO SCH (08:56)
[2020-05-28 12:24] VITALS: BP 94/61
[2020-05-28] MEDS: LEVOFLOXACIN 750 MG/D5% WATER 150 ML IV SCH (13:08)
[2020-05-28 15:45] VITALS: BP 98/65
[2020-05-28 19:26] VITALS: BP 109/73
[2020-05-28] MEDS ORDERED: SODIUM CHLORIDE 0.9% 100 ML ONE (23:36)
[2020-05-29] MEDS: HEPARIN SODIUM,PORCINE 5,000 UNITS/ML VIAL SQ SCH ×3 (00:06→16:15)
[2020-05-29 00:28] VITALS: BP 100/62
[2020-05-29 04:19] VITALS: BP 92/59
[2020-05-29] MEDS: CLINDAMYCIN 600 MG/D5% WATER 50 ML IV SCH ×3 (05:52→22:16)
[2020-05-29 07:40] VITALS: BP 98/58
[2020-05-29 08:38] LABS: BASOPHILS % (AUTO) 0.4 % (0.0-2.0); EOSINOPHILS % (AUTO) 0.2 % (1.0-6.0); HEMATOCRIT 28.1 % (36-46); HEMOGLOBIN 9.6 g/dL (12.0-16.0); LYMPHOCYTES # (AUTO) 1.3 K/uL (1.0-4.8); LYMPHOCYTES % (AUTO) 30.2 % (22.0-44.0); MEAN CORPUSCULAR HEMOGLOBIN 34.4 pg (26.0-34.0); MEAN CORPUSCULAR HGB CONC 34.2 G/dL (31.0-37.0); MEAN CORPUSCULAR VOLUME 101 fL (80-100); MONOCYTES # (AUTO) 0.5 K/uL (0.1-1.0); NEUTROPHILS # (AUTO) 2.5 K/uL (1.8-7.7); NEUTROPHILS % (AUTO) 58.2 % (40.0-70.0); PLATELET COUNT (AUTO) 97 K/uL (150-450); RED BLOOD CELL COUNT(AUTO) 2.79 MIL/uL (4.00-5.20); RED CELL DISTRIBUTION WIDTH 13.4 % (11.5-14.5)
[2020-05-29] MEDS ORDERED: SODIUM CHLORIDE 0.9% 250 ML IV ONE (08:48)
[2020-05-29] MEDS: DOCUSATE SODIUM 100 MG CAPSULE PO SCH ×2 (09:00→20:46)
[2020-05-29] MEDS: THIAMINE 100 MG TABLET PO SCH (09:00)
[2020-05-29] MEDS: MULTIVITAMINS WITH MINERALS, THERAPEUTIC TABLET PO SCH (09:00)
[2020-05-29] MEDS: FOLIC ACID 1 MG TABLET PO SCH (09:00)
[2020-05-29] MEDS: PANTOPRAZOLE SODIUM 40 MG DR TABLET PO SCH (09:00)
[2020-05-29 09:41] LABS: ALANINE AMINOTRANSFERASE 16 U/L (12-78); ALBUMIN 3.5 g/dL (3.4-5.0); ALKALINE PHOSPHATASE 17 U/L (46-116); ANION GAP 10 mmol/L (8-16); ASPARTATE AMINOTRANSFERASE 20 U/L (15-37); BILIRUBIN,TOTAL 0.9 mg/dL (0.1-1.0); CARBON DIOXIDE 26 mmol/L (22-29); CHLORIDE 100 mmol/L (98-107); CREATININE 0.57 mg/dL (0.60-1.30); GLOMERULAR FILTR. RATE CALC > 60 mL/min (>60); GLUCOSE,RANDOM 75 mg/dL (70-110); PHOSPHORUS 3.9 mg/dL (2.5-4.9); POTASSIUM 3.5 mmol/L (3.5-5.1); SODIUM SERUM 136 mmol/L (136-145); TOTAL PROTEIN, SERUM 5.8 g/dL (6.4-8.2); UREA NITROGEN, BLOOD 4 mg/dL (7-18)
[2020-05-29 10:45] VITALS: BP 100/52
[2020-05-29] MEDS ORDERED: MAGNESIUM SULFATE 2 GM in DEXTROSE 5%-WATER 100 ML IV ONE (14:15)
[2020-05-29 15:02] VITALS: BP 99/56
[2020-05-29] MEDS: LEVOFLOXACIN 750 MG/D5% WATER 150 ML IV SCH (16:10)
[2020-05-29 20:10] VITALS: BP 97/64
[2020-05-30] VITALS (7 sets, daily range): BP systolic 91–107; BP diastolic 55–64
[2020-05-30] MEDS: HEPARIN SODIUM,PORCINE 5,000 UNITS/ML VIAL SQ SCH ×3 (00:16→16:00)
[2020-05-30] MEDS: CLINDAMYCIN 600 MG/D5% WATER 50 ML IV SCH ×3 (06:00→22:00)
[2020-05-30 07:42] LABS: BASOPHILS % (AUTO) 0.4 % (0.0-2.0); EOSINOPHILS % (AUTO) 0.1 % (1.0-6.0); HEMATOCRIT 29.9 % (36-46); LYMPHOCYTES # (AUTO) 1.3 K/uL (1.0-4.8); LYMPHOCYTES % (AUTO) 31.8 % (22.0-44.0); MEAN CORPUSCULAR HEMOGLOBIN 33.9 pg (26.0-34.0); MEAN CORPUSCULAR HGB CONC 33.5 G/dL (31.0-37.0); MEAN CORPUSCULAR VOLUME 101 fL (80-100); MONOCYTES # (AUTO) 0.3 K/uL (0.1-1.0); MONOCYTES % (AUTO) 7.8 % (2.0-9.0); NEUTROPHILS # (AUTO) 2.5 K/uL (1.8-7.7); NEUTROPHILS % (AUTO) 59.9 % (40.0-70.0); PLATELET COUNT (AUTO) 113 K/uL (150-450); RED BLOOD CELL COUNT(AUTO) 2.96 MIL/uL (4.00-5.20); RED CELL DISTRIBUTION WIDTH 13.6 % (11.5-14.5)
[2020-05-30 07:54] LABS: ANION GAP 9 mmol/L (8-16); CALCIUM, TOTAL 9.2 mg/dL (8.8-10.5); CARBON DIOXIDE 27 mmol/L (22-29); CHLORIDE 101 mmol/L (98-107); GLOMERULAR FILTR. RATE CALC > 60 mL/min (>60); GLUCOSE,RANDOM 77 mg/dL (70-110); POTASSIUM 3.5 mmol/L (3.5-5.1); SODIUM SERUM 137 mmol/L (136-145); UREA NITROGEN, BLOOD 4 mg/dL (7-18)
[2020-05-30] MEDS: THIAMINE 100 MG TABLET PO SCH (09:00)
[2020-05-30] MEDS: MULTIVITAMINS WITH MINERALS, THERAPEUTIC TABLET PO SCH (09:00)
[2020-05-30] MEDS: PANTOPRAZOLE SODIUM 40 MG DR TABLET PO SCH (09:00)
[2020-05-30] MEDS: FOLIC ACID 1 MG TABLET PO SCH (09:00)
[2020-05-30] MEDS: DOCUSATE SODIUM 100 MG CAPSULE PO SCH ×2 (10:48→21:13)
[2020-05-30] MEDS: LEVOFLOXACIN 750 MG/D5% WATER 150 ML IV SCH (12:30)
[2020-05-30] MEDS: MAGNESIUM OXIDE 400 MG TABLET PO PRN (21:13)
[2020-05-30] MEDS ORDERED: CLINDAMYCIN HCL 300 MG CAPSULE PO ONE (23:30)
[2020-05-31] MEDS: HEPARIN SODIUM,PORCINE 5,000 UNITS/ML VIAL SQ SCH ×3 (00:09→17:25)
[2020-05-31] MEDS: MAGNESIUM OXIDE 400 MG TABLET PO PRN (00:09)
[2020-05-31 04:25] VITALS: BP 94/60
[2020-05-31 05:59] LABS: BASOPHILS % (AUTO) 0.6 % (0.0-2.0); EOSINOPHILS % (AUTO) 0.5 % (1.0-6.0); HEMATOCRIT 27.9 % (36-46); HEMOGLOBIN 9.5 g/dL (12.0-16.0); LYMPHOCYTES # (AUTO) 1.7 K/uL (1.0-4.8); LYMPHOCYTES % (AUTO) 35.8 % (22.0-44.0); MEAN CORPUSCULAR HEMOGLOBIN 34.3 pg (26.0-34.0); MEAN CORPUSCULAR HGB CONC 34.1 G/dL (31.0-37.0); MEAN CORPUSCULAR VOLUME 101 fL (80-100); MONOCYTES # (AUTO) 0.4 K/uL (0.1-1.0); NEUTROPHILS # (AUTO) 2.5 K/uL (1.8-7.7); NEUTROPHILS % (AUTO) 54.1 % (40.0-70.0); PLATELET COUNT (AUTO) 112 K/uL (150-450); RED BLOOD CELL COUNT(AUTO) 2.78 MIL/uL (4.00-5.20); RED CELL DISTRIBUTION WIDTH 13.6 % (11.5-14.5)
[2020-05-31] MEDS: CLINDAMYCIN 600 MG/D5% WATER 50 ML IV SCH ×3 (06:00→22:00)
[2020-05-31 07:07] VITALS: BP 96/52
[2020-05-31 07:39] LABS: ALANINE AMINOTRANSFERASE 15 U/L (12-78); ALBUMIN 3.7 g/dL (3.4-5.0); ALKALINE PHOSPHATASE 18 U/L (46-116); ASPARTATE AMINOTRANSFERASE 15 U/L (15-37); BILIRUBIN,TOTAL 0.9 mg/dL (0.1-1.0); CALCIUM, TOTAL 9.4 mg/dL (8.8-10.5); CARBON DIOXIDE 30 mmol/L (22-29); CREATININE 0.67 mg/dL (0.60-1.30); GLOMERULAR FILTR. RATE CALC > 60 mL/min (>60); GLUCOSE,RANDOM 85 mg/dL (70-110); TOTAL PROTEIN, SERUM 6.1 g/dL (6.4-8.2); UREA NITROGEN, BLOOD 5 mg/dL (7-18)
[2020-05-31 07:51] LABS: ANION GAP 7 mmol/L (8-16); CHLORIDE 102 mmol/L (98-107); POTASSIUM 3.1 mmol/L (3.5-5.1); SODIUM SERUM 139 mmol/L (136-145)
[2020-05-31] MEDS: DOCUSATE SODIUM 100 MG CAPSULE PO SCH ×2 (09:00→20:13)
[2020-05-31] MEDS: MULTIVITAMINS WITH MINERALS, THERAPEUTIC TABLET PO SCH (09:00)
[2020-05-31] MEDS: THIAMINE 100 MG TABLET PO SCH (09:00)
[2020-05-31] MEDS: PANTOPRAZOLE SODIUM 40 MG DR TABLET PO SCH (09:00)
[2020-05-31] MEDS: FOLIC ACID 1 MG TABLET PO SCH (09:00)
[2020-05-31 10:53] VITALS: BP 100/63
[2020-05-31] MEDS: LEVOFLOXACIN 750 MG/D5% WATER 150 ML IV SCH (12:30)
[2020-05-31 16:08] VITALS: BP 98/63
[2020-05-31 20:22] VITALS: BP 93/62
[2020-06-01] VITALS (7 sets, daily range): BP systolic 93–111; BP diastolic 61–75
[2020-06-01] MEDS: CLINDAMYCIN 600 MG/D5% WATER 50 ML IV SCH ×3 (06:00→22:11)
[2020-06-01 06:55] LABS: BASOPHILS % (AUTO) 0.8 % (0.0-2.0); EOSINOPHILS % (AUTO) 0.5 % (1.0-6.0); HEMATOCRIT 29.7 % (36-46); HEMOGLOBIN 10.1 g/dL (12.0-16.0); LYMPHOCYTES # (AUTO) 1.7 K/uL (1.0-4.8); LYMPHOCYTES % (AUTO) 40.6 % (22.0-44.0); MEAN CORPUSCULAR HEMOGLOBIN 34.2 pg (26.0-34.0); MEAN CORPUSCULAR HGB CONC 33.9 G/dL (31.0-37.0); MEAN CORPUSCULAR VOLUME 101 fL (80-100); MONOCYTES # (AUTO) 0.3 K/uL (0.1-1.0); MONOCYTES % (AUTO) 6.7 % (2.0-9.0); NEUTROPHILS # (AUTO) 2.2 K/uL (1.8-7.7); NEUTROPHILS % (AUTO) 51.4 % (40.0-70.0); PLATELET COUNT (AUTO) 122 K/uL (150-450); RED BLOOD CELL COUNT(AUTO) 2.94 MIL/uL (4.00-5.20); RED CELL DISTRIBUTION WIDTH 13.7 % (11.5-14.5)
[2020-06-01 07:34] LABS: ALANINE AMINOTRANSFERASE 17 U/L (12-78); ALBUMIN 3.8 g/dL (3.4-5.0); ALKALINE PHOSPHATASE 17 U/L (46-116); ANION GAP 5 mmol/L (8-16); ASPARTATE AMINOTRANSFERASE 20 U/L (15-37); BILIRUBIN,TOTAL 0.9 mg/dL (0.1-1.0); CALCIUM, TOTAL 9.6 mg/dL (8.8-10.5); CARBON DIOXIDE 32 mmol/L (22-29); CHLORIDE 104 mmol/L (98-107); GLOMERULAR FILTR. RATE CALC > 60 mL/min (>60); GLUCOSE,RANDOM 87 mg/dL (70-110); POTASSIUM 3.4 mmol/L (3.5-5.1); SODIUM SERUM 141 mmol/L (136-145); TOTAL PROTEIN, SERUM 6.3 g/dL (6.4-8.2); UREA NITROGEN, BLOOD 7 mg/dL (7-18)
[2020-06-01] MEDS: PANTOPRAZOLE SODIUM 40 MG DR TABLET PO SCH (09:00)
[2020-06-01] MEDS: DOCUSATE SODIUM 100 MG CAPSULE PO SCH ×2 (09:00→20:53)
[2020-06-01] MEDS: MULTIVITAMINS WITH MINERALS, THERAPEUTIC TABLET PO SCH (09:00)
[2020-06-01] MEDS: FOLIC ACID 1 MG TABLET PO SCH (09:00)
[2020-06-01] MEDS: THIAMINE 100 MG TABLET PO SCH (09:00)
[2020-06-01] MEDS: MEGESTROL ACETATE 400 MG/10 ML SUSPENSION UDCUP PO SCH ×2 (09:57→22:11)
[2020-06-01] MEDS: HEPARIN SODIUM,PORCINE 5,000 UNITS/ML VIAL SQ SCH ×4 (09:58→23:58)
[2020-06-01] MEDS: LEVOFLOXACIN 750 MG/D5% WATER 150 ML IV SCH ×2 (12:30→12:55)
[2020-06-01] MEDS ORDERED: SODIUM CHLORIDE 0.9% 0 ML ONE (12:49)
[2020-06-01] MEDS ORDERED: SODIUM CHLORIDE 0.9% 250 ML IV ONE (12:49)
[2020-06-01] MEDS ORDERED: POTASSIUM CHLORIDE 20 MEQ ER TABLET PO ONE (17:45)
[2020-06-01] MEDS: ACETAMINOPHEN 325 MG TABLET PO PRN (18:10)
[2020-06-01] MEDS: ZOLPIDEM TARTRATE 10 MG TABLET PO PRN (20:53)
[2020-06-01] MEDS ORDERED: SODIUM CHLORIDE 0.9% 500 ML IV ONE (21:56)
[2020-06-02] VITALS (7 sets, daily range): BP systolic 84–113; BP diastolic 48–76
[2020-06-02 05:54] LABS: BASOPHILS % (AUTO) 0.7 % (0.0-2.0); EOSINOPHILS % (AUTO) 0.2 % (1.0-6.0); HEMATOCRIT 27.7 % (36-46); HEMOGLOBIN 9.6 g/dL (12.0-16.0); LYMPHOCYTES # (AUTO) 1.1 K/uL (1.0-4.8); LYMPHOCYTES % (AUTO) 34.5 % (22.0-44.0); MEAN CORPUSCULAR HEMOGLOBIN 34.8 pg (26.0-34.0); MEAN CORPUSCULAR HGB CONC 34.6 G/dL (31.0-37.0); MEAN CORPUSCULAR VOLUME 101 fL (80-100); MONOCYTES # (AUTO) 0.2 K/uL (0.1-1.0); MONOCYTES % (AUTO) 5.5 % (2.0-9.0); NEUTROPHILS % (AUTO) 59.1 % (40.0-70.0); PLATELET COUNT (AUTO) 118 K/uL (150-450); RED BLOOD CELL COUNT(AUTO) 2.75 MIL/uL (4.00-5.20); RED CELL DISTRIBUTION WIDTH 13.2 % (11.5-14.5)
[2020-06-02 05:56] LABS: ANION GAP 6 mmol/L (8-16); CALCIUM, TOTAL 9.3 mg/dL (8.8-10.5); CARBON DIOXIDE 30 mmol/L (22-29); CHLORIDE 108 mmol/L (98-107); CREATININE 0.82 mg/dL (0.60-1.30); GLOMERULAR FILTR. RATE CALC > 60 mL/min (>60); GLUCOSE,RANDOM 130 mg/dL (70-110); PHOSPHORUS 3.2 mg/dL (2.5-4.9); POTASSIUM 4.2 mmol/L (3.5-5.1); SODIUM SERUM 144 mmol/L (136-145); UREA NITROGEN, BLOOD 8 mg/dL (7-18)
[2020-06-02] MEDS: CLINDAMYCIN 600 MG/D5% WATER 50 ML IV SCH ×2 (06:13→15:18)
[2020-06-02] MEDS: HEPARIN SODIUM,PORCINE 5,000 UNITS/ML VIAL SQ SCH ×2 (08:59→17:56)
[2020-06-02] MEDS: ERGOCALCIFEROL (VIT D2) 50,000 UNITS [1,250 MCG] CAPSULE PO SCH (09:00)
[2020-06-02] MEDS: FOLIC ACID 1 MG TABLET PO SCH (09:00)
[2020-06-02] MEDS: DOCUSATE SODIUM 100 MG CAPSULE PO SCH (09:00)
[2020-06-02] MEDS: THIAMINE 100 MG TABLET PO SCH (09:00)
[2020-06-02] MEDS: PANTOPRAZOLE SODIUM 40 MG DR TABLET PO SCH (09:00)
[2020-06-02] MEDS: MULTIVITAMINS WITH MINERALS, THERAPEUTIC TABLET PO SCH (09:00)
[2020-06-02] MEDS: MEGESTROL ACETATE 400 MG/10 ML SUSPENSION UDCUP PO SCH (09:00)
[2020-06-02] MEDS ORDERED: SODIUM CHLORIDE 0.9% 250 ML IV ONE ×2 (09:28→09:30)
[2020-06-02] MEDS ORDERED: SODIUM CHLORIDE 0.9% 1,000 ML IV SCH (12:15)
[2020-06-02] MEDS: LEVOFLOXACIN 750 MG/D5% WATER 150 ML IV SCH (12:33)
== END 2020-06-02 19:45 | DRG 917 ==
LOC: EMS 12:17 → ICU 17:05 → 5S 05-22 20:20 → 6N 06-01 17:20
PROVIDERS: ADMIT Internal Medicine; ATTEND Internal Medicine
PROC: 0W993ZZ Drainage of Right Pleural Cavity, Percutaneous Approach (ICD-10-PCS; principal; 2020-05-25)
PROC: B54MZZA Ultrasonography of Right Upper Extremity Veins, Guidance (ICD-10-PCS; 2020-06-01)
PROC: 05HY33Z Insertion of Infusion Device into Upper Vein, Percutaneous Approach (ICD-10-PCS; 2020-06-01)
DX: T42.6X2A Poisoning by other antiepileptic and sedative-hypnotic drugs, intentional self-harm, initial encounter (principal); G92 Toxic encephalopathy; J96.01 Acute respiratory failure with hypoxia; E87.1 Hypo-osmolality and hyponatremia; R45.851 Suicidal ideations; E46 Unspecified protein-calorie malnutrition; Z68.1 Body mass index [BMI] 19.9 or less, adult; R62.50 Unspecified lack of expected normal physiological development in childhood; F41.9 Anxiety disorder, unspecified; R00.1 Bradycardia, unspecified; F25.1 Schizoaffective disorder, depressive type; Z20.828 Contact with and (suspected) exposure to other viral communicable diseases; F31.9 Bipolar disorder, unspecified; I95.9 Hypotension, unspecified; I11.0 Hypertensive heart disease with heart failure; I50.9 Heart failure, unspecified; Q89.9 Congenital malformation, unspecified; Z91.5 Personal history of self-harm; Z88.0 Allergy status to penicillin; Z79.899 Other long term (current) drug therapy; Y92.89 Other specified places as the place of occurrence of the external cause
CPT/HCPCS: 32555; 36245; 36569; 36600; 71275; 76937; 76942; 82465; 82805; 82945; 83605; 83615; 83735; 83986; 84100; 84157; 84295; 86850; 86900; 86901; 87015; 87040; 87070; 87081; 87101; 87205; 87206; 87426; 88108; 89051; 92610; 93005; 93306; 97116; 97162; 97165; 97530; 97535; 99291; G0378; G0480; G0481; J1644; J1956; J2270; J2370; J2405; J3475; J3490; J7030; J7040; J7050; J7060; P9046; 36415-L1; 36415-TC; 71045-TC; 84703-TC

== ENCOUNTER 2020-06-25 13:56 | Emergency (ER) | payer MEDICARE, MEDICAID ==
[~2020-06-25] VITALS: Ht 162.6 cm; Wt 40.9 kg
[2020-06-25 17:09] LABS: BASOPHILS % (AUTO) 0.5 % (0.0-2.0); EOSINOPHILS % (AUTO) 0.2 % (1.0-6.0); HEMATOCRIT 32.4 % (36-46); HEMOGLOBIN 10.9 g/dL (12.0-16.0); LYMPHOCYTES # (AUTO) 2.2 K/uL (1.0-4.8); LYMPHOCYTES % (AUTO) 46.7 % (22.0-44.0); MEAN CORPUSCULAR HEMOGLOBIN 33.2 pg (26.0-34.0); MEAN CORPUSCULAR HGB CONC 33.6 G/dL (31.0-37.0); MEAN CORPUSCULAR VOLUME 99 fL (80-100); MONOCYTES # (AUTO) 0.4 K/uL (0.1-1.0); MONOCYTES % (AUTO) 7.7 % (2.0-9.0); NEUTROPHILS # (AUTO) 2.1 K/uL (1.8-7.7); NEUTROPHILS % (AUTO) 44.9 % (40.0-70.0); PLATELET COUNT (AUTO) 169 K/uL (150-450); RED BLOOD CELL COUNT(AUTO) 3.28 MIL/uL (4.00-5.20); RED CELL DISTRIBUTION WIDTH 12.6 % (11.5-14.5)
[2020-06-25 17:17] LABS: ANION GAP 9 mmol/L (8-16); CALCIUM, TOTAL 9.1 mg/dL (8.8-10.5); CARBON DIOXIDE 25 mmol/L (22-29); CHLORIDE 107 mmol/L (98-107); CREATININE 0.57 mg/dL (0.60-1.30); GLOMERULAR FILTR. RATE CALC > 60 mL/min (>60); GLUCOSE,RANDOM 94 mg/dL (70-110); POTASSIUM 3.9 mmol/L (3.5-5.1); SODIUM SERUM 141 mmol/L (136-145); UREA NITROGEN, BLOOD 10 mg/dL (7-18)
[2020-06-25 17:22] LABS: AMPHET/METH SCREEN,URINE NEGATIVE (NEGATIVE); BARBITURATE SCREEN, URINE NEGATIVE (NEGATIVE); BENZODIAZEPINES SCREEN,URINE NEGATIVE (NEGATIVE); CANNABINOID SCREEN,URINE NEGATIVE (NEGATIVE); COCAINE SCREEN,URINE NEGATIVE (NEGATIVE); METHADONE SCREEN, URINE NEGATIVE (NEGATIVE); OPIATE SCREEN,URINE NEGATIVE (NEGATIVE)
[2020-06-25 17:23] LABS: PHENCYCLIDINE SCREEN,URINE NEGATIVE (NEGATIVE)
[2020-06-25] MEDS ORDERED: PALI234D IM (17:24)
[2020-06-25] MEDS ORDERED: ERGO500054 PO (17:24)
[2020-06-25 17:28] LABS: ALANINE AMINOTRANSFERASE 14 U/L (12-78); ALBUMIN 3.8 g/dL (3.4-5.0); ALKALINE PHOSPHATASE 23 U/L (46-116); ASPARTATE AMINOTRANSFERASE 10 U/L (15-37); BILIRUBIN,TOTAL 0.6 mg/dL (0.1-1.0); HCG,QUANTITATIVE 1 mIU/mL (0-6); TOTAL PROTEIN, SERUM 6.2 g/dL (6.4-8.2)
[2020-06-25] MEDS ORDERED: OLANZapine 5 MG TABLET PO ONE (17:30)
[2020-06-25] MEDS ORDERED: LORazepam 1 MG TABLET PO ONE (17:30)
[2020-06-25 17:42] LABS: VALPROIC ACID < 3 mcg/mL (50-100)
[2020-06-25 18:30] VITALS: BP 101/59
== END 2020-06-25 19:25 | disposition home or self-care (01) ==
LOC: EMS 13:59
DX: R45.851 Suicidal ideations (principal); R63.0 Anorexia; F69 Unspecified disorder of adult personality and behavior; F31.9 Bipolar disorder, unspecified; F20.9 Schizophrenia, unspecified; Z68.1 Body mass index [BMI] 19.9 or less, adult; Z88.0 Allergy status to penicillin
CPT/HCPCS: 36415; 71045; 80053; 80164; 80307; 84702; 85025; 99284; G0480

== ENCOUNTER 2020-07-18 21:30 | Emergency (ER) | payer MEDICARE, MEDICAID ==
[~2020-07-18] VITALS: Ht 160 cm; Wt 72.7 kg
[2020-07-18 22:53] VITALS: BP 111/67
== END 2020-07-18 23:10 | disposition home or self-care (01) ==
LOC: EMS 21:30
DX: K08.89 Other specified disorders of teeth and supporting structures (principal); F31.9 Bipolar disorder, unspecified; F20.9 Schizophrenia, unspecified

== ENCOUNTER 2020-08-26 13:56 | Emergency (ER) | payer MEDICARE, MEDICAID ==
[~2020-08-26] VITALS: Ht 160 cm; Wt 66.0 kg
[2020-08-26 16:59] VITALS: BP 106/80
== END 2020-08-26 16:59 | disposition home or self-care (01) ==
LOC: EMS 14:11
DX: H60.92 Unspecified otitis externa, left ear (principal); F31.9 Bipolar disorder, unspecified; F20.9 Schizophrenia, unspecified; Z88.0 Allergy status to penicillin; Z79.899 Other long term (current) drug therapy
CPT/HCPCS: 99283; Z7502

== ENCOUNTER 2020-11-02 17:52 | Emergency (ER) | payer MEDICARE, MEDICAID ==
[~2020-11-02] VITALS: Ht 160 cm; Wt 81.8 kg
[~2020-11-02 17:52] MED LIST changes: -ERGO500054 PO; -HYDR50CA9 PO
[2020-11-02 18:20] VITALS: BP 138/80
[2020-11-02] MEDS ORDERED: ACETAMINOPHEN 500 MG TABLET PO ONE (18:30)
== END 2020-11-02 20:12 | disposition home or self-care (01) ==
LOC: EMS 17:54
DX: S66.911A Strain of unspecified muscle, fascia and tendon at wrist and hand level, right hand, initial encounter (principal); F31.9 Bipolar disorder, unspecified; F20.9 Schizophrenia, unspecified; Z88.0 Allergy status to penicillin; X58.XXXA Exposure to other specified factors, initial encounter; Y93.89 Activity, other specified; Y92.89 Other specified places as the place of occurrence of the external cause; Y99.8 Other external cause status
CPT/HCPCS: 99283

== ENCOUNTER 2020-11-09 18:23 | Emergency (ER) | payer MEDICARE, MEDICAID ==
[~2020-11-09] VITALS: Ht 160 cm; Wt 74.5 kg
[2020-11-09 19:25] LABS: APPEARANCE,URINE CLOUDY (CLEAR); BILIRUBIN,URINE NEGATIVE (NEGATIVE); GLUCOSE, URINE (UA) NEGATIVE (NEGATIVE); KETONES,URINE TRACE mg/dL (NEGATIVE); LEUKOCYTE ESTERASE ,URINE NEGATIVE (NEGATIVE); NITRATE,URINE NEGATIVE (NEGATIVE); OCCULT BLOOD,URINE NEGATIVE (NEGATIVE); PH,URINE 7.5 (5.0-8.0); PROTEIN,URINE NEGATIVE (NEGATIVE); UROBILINOGEN,URINE 0.2 mg/dL (<=1.0)
[2020-11-09 20:06] LABS: BASOPHILS % (AUTO) 0.5 % (0.0-2.0); EOSINOPHILS % (AUTO) 0.8 % (1.0-6.0); HEMATOCRIT 34.7 % (36-46); LYMPHOCYTES # (AUTO) 1.9 K/uL (1.0-4.8); LYMPHOCYTES % (AUTO) 37.7 % (22.0-44.0); MEAN CORPUSCULAR HEMOGLOBIN 31.2 pg (26.0-34.0); MEAN CORPUSCULAR HGB CONC 34.4 G/dL (31.0-37.0); MEAN CORPUSCULAR VOLUME 91 fL (80-100); MONOCYTES # (AUTO) 0.5 K/uL (0.1-1.0); MONOCYTES % (AUTO) 10.9 % (2.0-9.0); NEUTROPHILS # (AUTO) 2.5 K/uL (1.8-7.7); NEUTROPHILS % (AUTO) 50.1 % (40.0-70.0); PLATELET COUNT (AUTO) 160 K/uL (150-450); RED BLOOD CELL COUNT(AUTO) 3.83 MIL/uL (4.00-5.20); RED CELL DISTRIBUTION WIDTH 12.4 % (11.5-14.5)
[2020-11-09 20:08] LABS: COVID AG,FIA SOURCE NASOPHARYNGEAL
[2020-11-09 20:21] LABS: ANION GAP 7 mmol/L (8-16); CALCIUM, TOTAL 9.3 mg/dL (8.8-10.5); CARBON DIOXIDE 29 mmol/L (22-29); CHLORIDE 104 mmol/L (98-107); CREATININE 0.58 mg/dL (0.60-1.30); GLOMERULAR FILTR. RATE CALC > 60 mL/min (>60); GLUCOSE,RANDOM 108 mg/dL (70-110); POTASSIUM 4.2 mmol/L (3.5-5.1); SODIUM SERUM 140 mmol/L (136-145); UREA NITROGEN, BLOOD 14 mg/dL (7-18)
[2020-11-09 20:32] LABS: ALANINE AMINOTRANSFERASE 16 U/L (12-78); ALBUMIN 3.6 g/dL (3.4-5.0); ALKALINE PHOSPHATASE 54 U/L (46-116); ASPARTATE AMINOTRANSFERASE 8 U/L (15-37); BILIRUBIN,TOTAL 0.4 mg/dL (0.1-1.0); HCG,QUANTITATIVE < 1 mIU/mL (0-6); LIPASE 180 U/L (73-393); TOTAL PROTEIN, SERUM 6.8 g/dL (6.4-8.2); VALPROIC ACID 49 mcg/mL (50-100)
[2020-11-09 20:39] LABS: AMPHET/METH SCREEN,URINE NEGATIVE (NEGATIVE); BARBITURATE SCREEN, URINE NEGATIVE (NEGATIVE); BENZODIAZEPINES SCREEN,URINE NEGATIVE (NEGATIVE); CANNABINOID SCREEN,URINE NEGATIVE (NEGATIVE); COCAINE SCREEN,URINE NEGATIVE (NEGATIVE); METHADONE SCREEN, URINE NEGATIVE (NEGATIVE); OPIATE SCREEN,URINE NEGATIVE (NEGATIVE); PHENCYCLIDINE SCREEN,URINE NEGATIVE (NEGATIVE)
[2020-11-09 23:07] VITALS: BP 94/61
== END 2020-11-10 01:53 | disposition home or self-care (01) ==
LOC: EMS 18:26
DX: R10.13 Epigastric pain (principal); F25.9 Schizoaffective disorder, unspecified; F32.9 Major depressive disorder, single episode, unspecified; Z20.822 Contact with and (suspected) exposure to COVID-19; Z88.0 Allergy status to penicillin
CPT/HCPCS: 36415; 80053; 80164; 80307; 81003; 83690; 84702; 85025; 87426; 99283; G0480

== ENCOUNTER 2020-11-10 13:51 | Emergency (ER) | payer MEDICARE, MEDICAID ==
[~2020-11-10] VITALS: Ht 160 cm; Wt 68.2 kg
[2020-11-10] MEDS ORDERED: RisperiDONE 1 MG TABLET PO ONE (19:45)
[2020-11-10 19:48] VITALS: BP 142/82
== END 2020-11-10 21:10 | disposition home or self-care (01) ==
LOC: EMS 13:51
DX: F20.9 Schizophrenia, unspecified (principal); F31.9 Bipolar disorder, unspecified; Z88.0 Allergy status to penicillin
CPT/HCPCS: 99285; Z7502; Z7610

== ENCOUNTER 2020-11-23 16:34 | Emergency (ER) | payer MEDICARE, MEDICAID ==
[~2020-11-23] VITALS: Ht 162.6 cm; Wt 77.3 kg
[2020-11-23 17:42] LABS: BASOPHILS % (AUTO) 0.4 % (0.0-2.0); EOSINOPHILS % (AUTO) 1.2 % (1.0-6.0); HEMATOCRIT 35.2 % (36-46); LYMPHOCYTES # (AUTO) 1.7 K/uL (1.0-4.8); LYMPHOCYTES % (AUTO) 42.2 % (22.0-44.0); MEAN CORPUSCULAR HEMOGLOBIN 30.9 pg (26.0-34.0); MEAN CORPUSCULAR HGB CONC 34.2 G/dL (31.0-37.0); MEAN CORPUSCULAR VOLUME 91 fL (80-100); MONOCYTES # (AUTO) 0.6 K/uL (0.1-1.0); MONOCYTES % (AUTO) 14.2 % (2.0-9.0); NEUTROPHILS # (AUTO) 1.7 K/uL (1.8-7.7); PLATELET COUNT (AUTO) 170 K/uL (150-450); RED BLOOD CELL COUNT(AUTO) 3.89 MIL/uL (4.00-5.20); RED CELL DISTRIBUTION WIDTH 12.4 % (11.5-14.5)
[2020-11-23 17:51] LABS: ANION GAP 10 mmol/L (8-16); CALCIUM, TOTAL 8.9 mg/dL (8.8-10.5); CARBON DIOXIDE 27 mmol/L (22-29); CHLORIDE 106 mmol/L (98-107); CREATININE 0.67 mg/dL (0.60-1.30); GLOMERULAR FILTR. RATE CALC > 60 mL/min (>60); GLUCOSE,RANDOM 119 mg/dL (70-110); POTASSIUM 3.8 mmol/L (3.5-5.1); SODIUM SERUM 143 mmol/L (136-145); UREA NITROGEN, BLOOD 16 mg/dL (7-18)
[2020-11-23 18:01] LABS: ALANINE AMINOTRANSFERASE 20 U/L (12-78); ALBUMIN 3.5 g/dL (3.4-5.0); ALKALINE PHOSPHATASE 64 U/L (46-116); ASPARTATE AMINOTRANSFERASE 7 U/L (15-37); BILIRUBIN,TOTAL 0.3 mg/dL (0.1-1.0); HCG,QUANTITATIVE < 1 mIU/mL (0-6); TOTAL PROTEIN, SERUM 6.7 g/dL (6.4-8.2); VALPROIC ACID 49 mcg/mL (50-100)
[2020-11-23 18:50] VITALS: BP 115/76
== END 2020-11-23 20:00 | disposition home or self-care (01) ==
LOC: EMS 16:37
DX: R07.89 Other chest pain (principal); F20.9 Schizophrenia, unspecified; F31.9 Bipolar disorder, unspecified; Z88.0 Allergy status to penicillin
CPT/HCPCS: 36415; 71045; 80053; 80164; 84484; 84702; 85025; 93005; 99285; G0480

== ENCOUNTER 2020-11-24 12:01 | Emergency (ER) | payer MEDICARE, MEDICAID ==
[~2020-11-24] VITALS: Ht 160 cm; Wt 72.7 kg
[2020-11-24 14:23] VITALS: BP 118/70
== END 2020-11-24 14:24 | disposition home or self-care (01) ==
LOC: EMS 12:18
DX: F25.9 Schizoaffective disorder, unspecified (principal); F31.9 Bipolar disorder, unspecified; Z88.0 Allergy status to penicillin
CPT/HCPCS: 99283; Z7502

== ENCOUNTER 2020-12-08 17:21 | Emergency (ER) | payer MEDICARE, MEDICAID ==
[~2020-12-08] VITALS: Ht 160 cm; Wt 81.8 kg
[2020-12-08 19:17] LABS: BASOPHILS % (AUTO) 0.2 % (0.0-2.0); HEMOGLOBIN 12.8 g/dL (12.0-16.0); LYMPHOCYTES # (AUTO) 1.3 K/uL (1.0-4.8); LYMPHOCYTES % (AUTO) 26.8 % (22.0-44.0); MEAN CORPUSCULAR HEMOGLOBIN 30.2 pg (26.0-34.0); MEAN CORPUSCULAR HGB CONC 33.6 G/dL (31.0-37.0); MEAN CORPUSCULAR VOLUME 90 fL (80-100); MONOCYTES # (AUTO) 0.5 K/uL (0.1-1.0); MONOCYTES % (AUTO) 9.7 % (2.0-9.0); NEUTROPHILS # (AUTO) 2.9 K/uL (1.8-7.7); NEUTROPHILS % (AUTO) 62.3 % (40.0-70.0); PLATELET COUNT (AUTO) 145 K/uL (150-450); RED BLOOD CELL COUNT(AUTO) 4.23 MIL/uL (4.00-5.20); RED CELL DISTRIBUTION WIDTH 12.8 % (11.5-14.5)
[2020-12-08 19:30] LABS: ANION GAP 9 mmol/L (8-16); CALCIUM, TOTAL 9.2 mg/dL (8.8-10.5); CARBON DIOXIDE 29 mmol/L (22-29); CHLORIDE 104 mmol/L (98-107); CREATININE 0.73 mg/dL (0.60-1.30); GLOMERULAR FILTR. RATE CALC > 60 mL/min (>60); GLUCOSE,RANDOM 92 mg/dL (70-110); POTASSIUM 4.1 mmol/L (3.5-5.1); SODIUM SERUM 142 mmol/L (136-145); UREA NITROGEN, BLOOD 13 mg/dL (7-18)
[2020-12-08 19:37] LABS: ALANINE AMINOTRANSFERASE 12 U/L (12-78); ALBUMIN 3.6 g/dL (3.4-5.0); ALKALINE PHOSPHATASE 50 U/L (46-116); ASPARTATE AMINOTRANSFERASE 9 U/L (15-37); BILIRUBIN,TOTAL 0.3 mg/dL (0.1-1.0); TOTAL PROTEIN, SERUM 7.1 g/dL (6.4-8.2)
[2020-12-08] MEDS ORDERED: BENZ1TAB10 PO (19:42)
[2020-12-08] MEDS ORDERED: TRAZ-257 PO (19:42)
[2020-12-08] MEDS ORDERED: RISP3TAB35 PO (19:42)
[2020-12-08 19:57] LABS: HCG,QUANTITATIVE < 1 mIU/mL (0-6); VALPROIC ACID 107 mcg/mL (50-100)
[2020-12-08 22:05] VITALS: BP 108/64
== END 2020-12-08 22:20 | disposition home or self-care (01) ==
LOC: EMS 17:21
DX: R45.851 Suicidal ideations (principal); R62.50 Unspecified lack of expected normal physiological development in childhood; F31.9 Bipolar disorder, unspecified; F20.9 Schizophrenia, unspecified; Z88.0 Allergy status to penicillin
CPT/HCPCS: 36415; 80053; 80164; 84702; 85025; 99285; G0480

== ENCOUNTER 2021-01-04 19:32 | Inpatient (IN) | payer MEDICARE, MEDICAID ==
[~2021-01-04] VITALS: Ht 160 cm; Wt 82.4 kg
[~2021-01-04 19:32] MED LIST changes: +BENZ1TAB10 PO; +BUPR-93 PO; -BUSP10TA23 PO; -CITA40TA6 PO; +RISP2TAB45 PO; +TRAZ-257 PO
[2021-01-04] MEDS ORDERED: doxepin PO (20:07)
[2021-01-04 20:32] LABS: BASOPHILS % (AUTO) 0.5 % (0.0-2.0); EOSINOPHILS % (AUTO) 1.1 % (1.0-6.0); HEMOGLOBIN 12.7 g/dL (12.0-16.0); LYMPHOCYTES # (AUTO) 1.7 K/uL (1.0-4.8); LYMPHOCYTES % (AUTO) 35.1 % (22.0-44.0); MEAN CORPUSCULAR HEMOGLOBIN 29.8 pg (26.0-34.0); MEAN CORPUSCULAR HGB CONC 33.4 G/dL (31.0-37.0); MEAN CORPUSCULAR VOLUME 89 fL (80-100); MONOCYTES # (AUTO) 0.5 K/uL (0.1-1.0); MONOCYTES % (AUTO) 9.8 % (2.0-9.0); NEUTROPHILS # (AUTO) 2.6 K/uL (1.8-7.7); NEUTROPHILS % (AUTO) 53.5 % (40.0-70.0); PLATELET COUNT (AUTO) 140 K/uL (150-450); RED BLOOD CELL COUNT(AUTO) 4.25 MIL/uL (4.00-5.20); RED CELL DISTRIBUTION WIDTH 12.4 % (11.5-14.5)
[2021-01-04 20:42] LABS: ANION GAP 6 mmol/L (8-16); CALCIUM, TOTAL 8.8 mg/dL (8.8-10.5); CARBON DIOXIDE 29 mmol/L (22-29); CHLORIDE 107 mmol/L (98-107); CREATININE 0.75 mg/dL (0.60-1.30); GLOMERULAR FILTR. RATE CALC > 60 mL/min (>60); GLUCOSE,RANDOM 89 mg/dL (70-110); POTASSIUM 4.3 mmol/L (3.5-5.1); SODIUM SERUM 142 mmol/L (136-145); UREA NITROGEN, BLOOD 15 mg/dL (7-18)
[2021-01-04 20:49] LABS: ALANINE AMINOTRANSFERASE 18 U/L (12-78); ALBUMIN 3.7 g/dL (3.4-5.0); ALKALINE PHOSPHATASE 49 U/L (46-116); ASPARTATE AMINOTRANSFERASE 8 U/L (15-37); BILIRUBIN,TOTAL 0.3 mg/dL (0.1-1.0); TOTAL PROTEIN, SERUM 6.8 g/dL (6.4-8.2)
[2021-01-04 21:30] LABS: COVID AG,FIA SOURCE NASOPHARYNGEAL
[2021-01-04] MEDS ORDERED: HALOPERIDOL 5 MG TABLET PO PRN (22:00)
[2021-01-04] MEDS ORDERED: ZOLPIDEM TARTRATE 10 MG TABLET PO PRN (22:00)
[2021-01-04] MEDS ORDERED: LORazepam 2 MG TABLET PO PRN (22:00)
[2021-01-05 01:32] LABS: AMPHET/METH SCREEN,URINE NEGATIVE (NEGATIVE); BARBITURATE SCREEN, URINE NEGATIVE (NEGATIVE); BENZODIAZEPINES SCREEN,URINE NEGATIVE (NEGATIVE); CANNABINOID SCREEN,URINE NEGATIVE (NEGATIVE); COCAINE SCREEN,URINE NEGATIVE (NEGATIVE); METHADONE SCREEN, URINE NEGATIVE (NEGATIVE); OPIATE SCREEN,URINE NEGATIVE (NEGATIVE); PHENCYCLIDINE SCREEN,URINE NEGATIVE (NEGATIVE)
[2021-01-05 03:00] LABS: CHOL/HDL RATIO 3.7 (3.9-5.7); CHOLESTEROL 140 mg/dL (131-200); HDL CHOLESTEROL 38 mg/dL (40-60); LDL CHOL (CALC.) 73 mg/dL (0-130); TRIGLYCERIDES 147 mg/dL (15-150)
[2021-01-05] MEDS ORDERED: MAGNESIUM HYDROXIDE SUSPENSION 30 ML UDCUP PO PRN (07:15)
[2021-01-05] MEDS ORDERED: LOPERAMIDE HCL 2 MG CAPSULE PO PRN (07:15)
[2021-01-05] MEDS ORDERED: ONDANSETRON HCL 4 MG TABLET PO PRN (07:15)
[2021-01-05] MEDS ORDERED: NICOTINE 14 MG/24 HOUR PATCH TD PRN (07:15)
[2021-01-05] MEDS ORDERED: IBUPROFEN 400 MG TABLET PO PRN (07:15)
[2021-01-05] MEDS ORDERED: CloNIDine HCL 0.1 MG TABLET PO PRN (07:15)
[2021-01-05] MEDS ORDERED: DOCUSATE SODIUM 100 MG CAPSULE PO PRN (07:15)
[2021-01-05] MEDS ORDERED: PETROLATUM,WHITE 28 GM JELLY TP PRN (07:15)
[2021-01-05] MEDS ORDERED: GuaiFENesin/D-METHORPHAN [SUGAR-FREE] 200-20MG/10 ML SYRUP UDCUP PO PRN (07:15)
[2021-01-05] MEDS ORDERED: ALBUTEROL SULFATE HFA 90 MCG/PUFF 8 GM INHALER IH PRN (07:15)
[2021-01-05] MEDS ORDERED: ACETAMINOPHEN 325 MG TABLET PO PRN (07:15)
[2021-01-05] MEDS ORDERED: MAG HYDROX/AL HYDROX/SIMETH ES 30 ML SUSPENSION UDCUP PO PRN (07:15)
[2021-01-05 09:00] VITALS: BP 111/71
[2021-01-05] MEDS ORDERED: PALIPERIDONE PALMITATE 234 MG/1.5 ML SYRINGE IM SCH (16:00)
[2021-01-05 16:24] VITALS: BP 100/61
[2021-01-05] MEDS: RisperiDONE 2 MG TABLET PO SCH (16:55)
[2021-01-05] MEDS: BENZTROPINE MESYLATE 1 MG TABLET PO SCH (16:55)
[2021-01-05] MEDS: DIVALPROEX SODIUM 500 MG DR TABLET PO SCH (20:28)
[2021-01-05] MEDS: TraZODone HCL 100 MG TABLET PO SCH (20:28)
[2021-01-06 00:16] VITALS: BP 88/54
[2021-01-06 08:13] VITALS: BP 100/64
[2021-01-06] MEDS: DIVALPROEX SODIUM 500 MG DR TABLET PO SCH ×2 (09:13→20:22)
[2021-01-06] MEDS: RisperiDONE 2 MG TABLET PO SCH ×2 (09:13→16:44)
[2021-01-06] MEDS: BENZTROPINE MESYLATE 1 MG TABLET PO SCH ×2 (09:13→16:44)
[2021-01-06] MEDS: BuPROPion HCL XL 150 MG ER TABLET PO SCH (09:14)
[2021-01-06 16:32] VITALS: BP 113/53
[2021-01-06 16:43] VITALS: BP 102/65
[2021-01-06] MEDS: TraZODone HCL 100 MG TABLET PO SCH (20:22)
[2021-01-07 06:11] VITALS: BP 102/63
[2021-01-07] MEDS: RisperiDONE 2 MG TABLET PO SCH ×2 (08:48→16:12)
[2021-01-07] MEDS: DIVALPROEX SODIUM 500 MG DR TABLET PO SCH ×2 (08:48→20:20)
[2021-01-07] MEDS: BENZTROPINE MESYLATE 1 MG TABLET PO SCH ×2 (08:48→16:11)
[2021-01-07] MEDS: BuPROPion HCL XL 150 MG ER TABLET PO SCH (08:48)
[2021-01-07 11:08] VITALS: BP 101/67
[2021-01-07 17:45] VITALS: BP 97/64
[2021-01-07] MEDS: TraZODone HCL 100 MG TABLET PO SCH (20:20)
[2021-01-08 06:05] VITALS: BP 100/62
[2021-01-08 08:21] VITALS: BP 100/67
[2021-01-08] MEDS: BENZTROPINE MESYLATE 1 MG TABLET PO SCH ×2 (08:36→16:28)
[2021-01-08] MEDS: DIVALPROEX SODIUM 500 MG DR TABLET PO SCH ×2 (08:36→20:10)
[2021-01-08] MEDS: BuPROPion HCL XL 150 MG ER TABLET PO SCH (08:36)
[2021-01-08] MEDS: RisperiDONE 2 MG TABLET PO SCH ×2 (08:36→16:28)
[2021-01-08 16:19] VITALS: BP 123/88
[2021-01-08] MEDS: TraZODone HCL 100 MG TABLET PO SCH (20:10)
[2021-01-09 06:29] VITALS: BP 91/58
[2021-01-09 07:59] LABS: COVID AG,FIA SOURCE NASOPHARYNGEAL
[2021-01-09 08:37] VITALS: BP 112/67
[2021-01-09] MEDS: BuPROPion HCL XL 150 MG ER TABLET PO SCH (09:13)
[2021-01-09] MEDS: RisperiDONE 2 MG TABLET PO SCH ×2 (09:13→16:43)
[2021-01-09] MEDS: DIVALPROEX SODIUM 500 MG DR TABLET PO SCH ×2 (09:13→21:00)
[2021-01-09] MEDS: BENZTROPINE MESYLATE 1 MG TABLET PO SCH ×2 (09:13→16:43)
[2021-01-09 16:18] VITALS: BP 99/69
[2021-01-09] MEDS: TraZODone HCL 100 MG TABLET PO SCH (21:00)
[2021-01-10 05:42] VITALS: BP 97/56
[2021-01-10] MEDS: BuPROPion HCL XL 150 MG ER TABLET PO SCH (08:22)
[2021-01-10] MEDS: DIVALPROEX SODIUM 500 MG DR TABLET PO SCH ×2 (08:22→20:48)
[2021-01-10] MEDS: BENZTROPINE MESYLATE 1 MG TABLET PO SCH ×2 (08:22→16:26)
[2021-01-10] MEDS: RisperiDONE 2 MG TABLET PO SCH ×2 (08:22→16:26)
[2021-01-10 16:06] VITALS: BP 91/55
[2021-01-10 16:25] VITALS: BP 104/64
[2021-01-10] MEDS: TraZODone HCL 100 MG TABLET PO SCH (20:48)
[2021-01-11 01:07] VITALS: BP 102/64
[2021-01-11 08:22] VITALS: BP 110/65
[2021-01-11] MEDS: RisperiDONE 2 MG TABLET PO SCH ×2 (08:34→16:29)
[2021-01-11] MEDS: DIVALPROEX SODIUM 500 MG DR TABLET PO SCH ×2 (08:34→20:32)
[2021-01-11] MEDS: BuPROPion HCL XL 150 MG ER TABLET PO SCH (08:34)
[2021-01-11] MEDS: BENZTROPINE MESYLATE 1 MG TABLET PO SCH ×2 (08:34→16:29)
[2021-01-11 16:06] VITALS: BP 101/63
[2021-01-11] MEDS: TraZODone HCL 100 MG TABLET PO SCH (20:33)
[2021-01-12 00:18] VITALS: BP 104/6
[2021-01-12 08:33] VITALS: BP 109/69
[2021-01-12] MEDS: BuPROPion HCL XL 150 MG ER TABLET PO SCH (09:30)
[2021-01-12] MEDS: BENZTROPINE MESYLATE 1 MG TABLET PO SCH ×2 (09:30→16:35)
[2021-01-12] MEDS: RisperiDONE 2 MG TABLET PO SCH ×2 (09:30→16:35)
[2021-01-12] MEDS: DIVALPROEX SODIUM 500 MG DR TABLET PO SCH ×2 (09:30→20:08)
[2021-01-12 16:04] VITALS: BP 106/66
[2021-01-12] MEDS: TraZODone HCL 100 MG TABLET PO SCH (20:08)
[2021-01-13 06:40] VITALS: BP 99/49
[2021-01-13 08:08] VITALS: BP 104/60
[2021-01-13] MEDS: BuPROPion HCL XL 150 MG ER TABLET PO SCH (09:08)
[2021-01-13] MEDS: DIVALPROEX SODIUM 500 MG DR TABLET PO SCH ×2 (09:08→20:37)
[2021-01-13] MEDS: RisperiDONE 2 MG TABLET PO SCH ×2 (09:08→16:34)
[2021-01-13] MEDS: BENZTROPINE MESYLATE 1 MG TABLET PO SCH ×2 (09:08→16:34)
[2021-01-13 16:13] VITALS: BP 100/63
[2021-01-13] MEDS: TraZODone HCL 100 MG TABLET PO SCH (20:37)
[2021-01-14 00:20] VITALS: BP 80/53
[2021-01-14 08:27] VITALS: BP 109/68
[2021-01-14] MEDS: RisperiDONE 2 MG TABLET PO SCH ×2 (08:32→16:29)
[2021-01-14] MEDS: BENZTROPINE MESYLATE 1 MG TABLET PO SCH ×2 (08:32→16:29)
[2021-01-14] MEDS: DIVALPROEX SODIUM 500 MG DR TABLET PO SCH ×2 (08:32→20:38)
[2021-01-14] MEDS: BuPROPion HCL XL 150 MG ER TABLET PO SCH (08:32)
[2021-01-14 16:06] VITALS: BP 104/69
[2021-01-14] MEDS: TraZODone HCL 100 MG TABLET PO SCH (20:38)
[2021-01-15 00:26] VITALS: BP 99/61
[2021-01-15] MEDS: BuPROPion HCL XL 150 MG ER TABLET PO SCH (09:23)
[2021-01-15] MEDS: BENZTROPINE MESYLATE 1 MG TABLET PO SCH ×2 (09:23→16:33)
[2021-01-15] MEDS: RisperiDONE 2 MG TABLET PO SCH ×2 (09:23→16:32)
[2021-01-15] MEDS: DIVALPROEX SODIUM 500 MG DR TABLET PO SCH ×2 (09:23→20:06)
[2021-01-15 10:57] VITALS: BP 95/60
[2021-01-15 16:10] VITALS: BP 119/74
[2021-01-15] MEDS: TraZODone HCL 100 MG TABLET PO SCH (20:06)
[2021-01-16 00:28] VITALS: BP 104/62
[2021-01-16 07:20] LABS: COVID AG,FIA SOURCE NASOPHARYNGEAL
[2021-01-16] MEDS: DIVALPROEX SODIUM 500 MG DR TABLET PO SCH ×3 (09:00→20:20)
[2021-01-16] MEDS: BENZTROPINE MESYLATE 1 MG TABLET PO SCH ×3 (09:00→16:30)
[2021-01-16] MEDS: RisperiDONE 2 MG TABLET PO SCH ×3 (09:00→16:29)
[2021-01-16] MEDS: BuPROPion HCL XL 150 MG ER TABLET PO SCH ×2 (09:00→09:20)
[2021-01-16 16:24] VITALS: BP 99/64
[2021-01-16] MEDS: TraZODone HCL 100 MG TABLET PO SCH (20:20)
[2021-01-17 00:49] VITALS: BP 95/65
[2021-01-17 08:07] VITALS: BP 108/66
[2021-01-17] MEDS: BuPROPion HCL XL 150 MG ER TABLET PO SCH (13:07)
[2021-01-17] MEDS: BENZTROPINE MESYLATE 1 MG TABLET PO SCH ×2 (13:07→17:09)
[2021-01-17] MEDS: DIVALPROEX SODIUM 500 MG DR TABLET PO SCH ×2 (13:08→20:44)
[2021-01-17] MEDS: RisperiDONE 2 MG TABLET PO SCH ×2 (13:08→17:09)
[2021-01-17 16:03] VITALS: BP 107/64
[2021-01-17] MEDS: TraZODone HCL 100 MG TABLET PO SCH (20:44)
[2021-01-18 00:42] VITALS: BP 63/52
[2021-01-18 08:10] VITALS: BP 102/62
[2021-01-18] MEDS: BuPROPion HCL XL 150 MG ER TABLET PO SCH (13:59)
[2021-01-18] MEDS: DIVALPROEX SODIUM 500 MG DR TABLET PO SCH ×2 (13:59→20:30)
[2021-01-18] MEDS: BENZTROPINE MESYLATE 1 MG TABLET PO SCH ×2 (13:59→17:03)
[2021-01-18] MEDS: RisperiDONE 2 MG TABLET PO SCH ×2 (13:59→17:02)
[2021-01-18 16:06] VITALS: BP 104/68
[2021-01-18] MEDS: TraZODone HCL 100 MG TABLET PO SCH (20:30)
[2021-01-19 06:01] VITALS: BP 81/55
[2021-01-19 08:15] VITALS: BP 107/66
[2021-01-19] MEDS: RisperiDONE 2 MG TABLET PO SCH ×3 (09:00→17:14)
[2021-01-19] MEDS: BuPROPion HCL XL 150 MG ER TABLET PO SCH ×2 (09:00→09:58)
[2021-01-19] MEDS: BENZTROPINE MESYLATE 1 MG TABLET PO SCH ×3 (09:00→17:14)
[2021-01-19] MEDS: DIVALPROEX SODIUM 500 MG DR TABLET PO SCH ×3 (09:00→20:29)
[2021-01-19 17:13] VITALS: BP 109/61
[2021-01-19] MEDS: TraZODone HCL 100 MG TABLET PO SCH (20:30)
[2021-01-20 00:26] VITALS: BP 89/60
[2021-01-20 08:31] VITALS: BP 107/66
[2021-01-20] MEDS: BENZTROPINE MESYLATE 1 MG TABLET PO SCH ×2 (09:50→16:30)
[2021-01-20] MEDS: BuPROPion HCL XL 150 MG ER TABLET PO SCH (09:50)
[2021-01-20] MEDS: DIVALPROEX SODIUM 500 MG DR TABLET PO SCH ×2 (09:50→20:34)
[2021-01-20] MEDS: RisperiDONE 2 MG TABLET PO SCH ×2 (09:50→16:30)
[2021-01-20 16:12] VITALS: BP 104/64
[2021-01-20] MEDS: TraZODone HCL 100 MG TABLET PO SCH (20:34)
[2021-01-21 01:48] VITALS: BP 90/61
[2021-01-21] MEDS: BENZTROPINE MESYLATE 1 MG TABLET PO SCH ×2 (09:07→16:16)
[2021-01-21] MEDS: RisperiDONE 2 MG TABLET PO SCH ×2 (09:07→16:16)
[2021-01-21] MEDS: BuPROPion HCL XL 150 MG ER TABLET PO SCH (09:07)
[2021-01-21] MEDS: DIVALPROEX SODIUM 500 MG DR TABLET PO SCH ×2 (09:07→20:24)
[2021-01-21 16:18] VITALS: BP 129/60
[2021-01-21] MEDS: TraZODone HCL 100 MG TABLET PO SCH (20:24)
[2021-01-22 00:44] VITALS: BP 104/65
[2021-01-22 08:29] VITALS: BP 100/66
[2021-01-22] MEDS: MULTIVITAMINS WITH MINERALS, THERAPEUTIC TABLET PO SCH (09:00)
[2021-01-22] MEDS: RisperiDONE 2 MG TABLET PO SCH ×2 (09:00→16:57)
[2021-01-22] MEDS: DIVALPROEX SODIUM 500 MG DR TABLET PO SCH ×2 (09:00→20:30)
[2021-01-22] MEDS: BuPROPion HCL XL 150 MG ER TABLET PO SCH (09:00)
[2021-01-22] MEDS: BENZTROPINE MESYLATE 1 MG TABLET PO SCH ×2 (09:00→16:57)
[2021-01-22 16:07] VITALS: BP 109/66
[2021-01-22] MEDS: TraZODone HCL 100 MG TABLET PO SCH (20:30)
[2021-01-23 00:27] VITALS: BP 92/60
[2021-01-23 08:06] LABS: COVID AG,FIA SOURCE NASOPHARYNGEAL
[2021-01-23 08:26] VITALS: BP 100/62
[2021-01-23] MEDS: RisperiDONE 2 MG TABLET PO SCH ×2 (09:00→16:41)
[2021-01-23] MEDS: BuPROPion HCL XL 150 MG ER TABLET PO SCH (09:00)
[2021-01-23] MEDS: MULTIVITAMINS WITH MINERALS, THERAPEUTIC TABLET PO SCH (09:00)
[2021-01-23] MEDS: BENZTROPINE MESYLATE 1 MG TABLET PO SCH ×2 (09:00→16:41)
[2021-01-23] MEDS: DIVALPROEX SODIUM 500 MG DR TABLET PO SCH ×2 (09:00→20:41)
[2021-01-23 16:10] VITALS: BP 116/65
[2021-01-23] MEDS: TraZODone HCL 100 MG TABLET PO SCH (20:41)
[2021-01-24 00:46] VITALS: BP 97/62
[2021-01-24] MEDS: BuPROPion HCL XL 150 MG ER TABLET PO SCH (09:00)
[2021-01-24] MEDS: RisperiDONE 2 MG TABLET PO SCH (09:00)
[2021-01-24] MEDS: MULTIVITAMINS WITH MINERALS, THERAPEUTIC TABLET PO SCH (09:00)
[2021-01-24] MEDS: DIVALPROEX SODIUM 500 MG DR TABLET PO SCH (09:00)
[2021-01-24] MEDS: BENZTROPINE MESYLATE 1 MG TABLET PO SCH (09:00)
== END 2021-01-24 18:00 | disposition home or self-care (01) | DRG 885 ==
LOC: EMS 19:38 → B2X 21:56
PROVIDERS: ADMIT Psychiatry & Neurology Psychiatry; ATTEND Psychiatry & Neurology Psychiatry
DX: F25.0 Schizoaffective disorder, bipolar type (principal); R45.851 Suicidal ideations; D69.6 Thrombocytopenia, unspecified; Z20.822 Contact with and (suspected) exposure to COVID-19; I95.9 Hypotension, unspecified; F84.0 Autistic disorder; K59.00 Constipation, unspecified; Z59.0 Homelessness
CPT/HCPCS: 80053; 80061; 85025; 87081; 87426; 99285; G0480

== ENCOUNTER 2021-02-08 20:19 | Emergency (ER) | payer MEDICARE, MEDICAID ==
[~2021-02-08] VITALS: Ht 157.5 cm; Wt 63.6 kg
[~2021-02-08 20:19] MED LIST changes: -PALI234D IM
[2021-02-08 20:39] VITALS: BP 118/72
[2021-02-08] MEDS ORDERED: IBUPROFEN 600 MG TABLET PO ONE (21:15)
== END 2021-02-08 22:52 | disposition home or self-care (01) ==
LOC: EMS 20:19
DX: M25.511 Pain in right shoulder (principal); F25.9 Schizoaffective disorder, unspecified; F31.9 Bipolar disorder, unspecified; Z88.0 Allergy status to penicillin
CPT/HCPCS: 99283

== ENCOUNTER 2022-03-17 09:40 | Emergency (ER) | payer MEDICARE, MEDICAID ==
[~2022-03-17] VITALS: Ht 160 cm; Wt 71.0 kg
[~2022-03-17 09:40] MED LIST changes: -BENZ1TAB10 PO; +BENZ1TAB96 PO; +BUPR-50 PO; -BUPR-93 PO
[2022-03-17] MEDS ORDERED: DOCU-385 PO (10:39)
[2022-03-17] MEDS ORDERED: BENZ-70 PO (10:39)
[2022-03-17] MEDS ORDERED: RISP0.5T39 PO (10:39)
[2022-03-17] MEDS ORDERED: LEVO1TAB13 PO (10:39)
[2022-03-17] MEDS ORDERED: ONDA-104 PO (10:39)
[2022-03-17] MEDS ORDERED: OLAN2.5T29 PO (10:39)
[2022-03-17] MEDS ORDERED: BENZ1TAB96 PO (10:39)
[2022-03-17 11:50] VITALS: BP 113/59
== END 2022-03-17 13:00 | disposition home or self-care (01) ==
LOC: EMS 09:40
DX: F20.9 Schizophrenia, unspecified (principal); F31.9 Bipolar disorder, unspecified; F84.0 Autistic disorder; Z88.0 Allergy status to penicillin
CPT/HCPCS: 99283

== ENCOUNTER 2022-04-25 09:49 | Emergency (ER) | payer MEDICARE, MEDICAID ==
[~2022-04-25] VITALS: Ht 160 cm; Wt 71.0 kg
[~2022-04-25 09:49] MED LIST changes: +BENZ-70 PO; -BUPR-50 PO; +DOCU-385 PO; +LEVO1TAB13 PO; +OLAN2.5T29 PO; +ONDA-104 PO; +RISP0.5T39 PO; -TRAZ-257 PO
[2022-04-25 09:51] VITALS: BP 110/76
== END 2022-04-25 11:49 | disposition left against medical advice (07) ==
LOC: EMS 09:51
DX: Z53.21 Procedure and treatment not carried out due to patient leaving prior to being seen by health care provider (principal)

== ENCOUNTER 2022-07-15 15:12 | Emergency (ER) | payer MEDICARE, MEDICAID ==
[~2022-07-15] VITALS: Ht 160 cm; Wt 84.1 kg
[2022-07-15 16:20] VITALS: BP 138/88
== END 2022-07-15 18:41 | disposition home or self-care (01) ==
LOC: EMS 15:12
DX: F25.1 Schizoaffective disorder, depressive type (principal); R62.50 Unspecified lack of expected normal physiological development in childhood; F31.9 Bipolar disorder, unspecified; Z88.0 Allergy status to penicillin
CPT/HCPCS: 99281; 99284; Z7502

== ENCOUNTER 2022-07-16 07:05 | Emergency (ER) | payer MEDICARE, MEDICAID ==
[~2022-07-16] VITALS: Ht 160 cm; Wt 63.6 kg
[2022-07-16 07:55] VITALS: BP 113/76
== END 2022-07-16 09:09 | disposition home or self-care (01) ==
LOC: EMS 07:06
DX: F25.1 Schizoaffective disorder, depressive type (principal); F31.9 Bipolar disorder, unspecified
CPT/HCPCS: 99283; Z7502

== ENCOUNTER 2023-07-26 08:22 | Inpatient (IN) | payer MEDICARE, MEDICAID ==
[~2023-07-26] VITALS: Ht 160 cm; Wt 92.5 kg
[~2023-07-26 08:22] MED LIST changes: +BENZ-227 PO; -BENZ-70 PO; +BENZ1TAB84 PO; -BENZ1TAB96 PO
[2023-07-26 09:08] LABS: COVID AG,FIA SOURCE NASAL SWAB
[2023-07-26] MEDS ORDERED: ZOLPIDEM TARTRATE 10 MG TABLET PO PRN (09:15)
[2023-07-26] MEDS ORDERED: QUEtiapine FUMARATE 100 MG TABLET PO PRN (09:15)
[2023-07-26 09:24] LABS: BASOPHILS % (AUTO) 1.1 % (0.0-2.0); EOSINOPHILS % (AUTO) 0.4 % (1.0-6.0); HEMATOCRIT 37.1 % (36-46); HEMOGLOBIN 12.6 g/dL (12.0-16.0); LYMPHOCYTES # (AUTO) 1.3 K/uL (1.0-4.8); LYMPHOCYTES % (AUTO) 32.7 % (22.0-44.0); MEAN CORPUSCULAR HEMOGLOBIN 30.5 pg (26.0-34.0); MEAN CORPUSCULAR HGB CONC 33.9 G/dL (31.0-37.0); MEAN CORPUSCULAR VOLUME 90 fL (80-100); MONOCYTES # (AUTO) 0.3 K/uL (0.1-1.0); MONOCYTES % (AUTO) 7.3 % (2.0-9.0); NEUTROPHILS # (AUTO) 2.4 K/uL (1.8-7.7); NEUTROPHILS % (AUTO) 58.5 % (40.0-70.0); PLATELET COUNT (AUTO) 170 K/uL (150-450); RED BLOOD CELL COUNT(AUTO) 4.12 MIL/uL (4.00-5.20); RED CELL DISTRIBUTION WIDTH 14.1 % (11.5-14.5); WHITE BLOOD COUNT (AUTO) 4.1 K/uL (4.5-11.0)
[2023-07-26 09:30] LABS: SARS-COV2 (COVID) ANTIGEN,FIA Negative (Negative)
[2023-07-26 09:38] LABS: ANION GAP 8 mmol/L (8-16); CARBON DIOXIDE 26 mmol/L (22-29); CHLORIDE 102 mmol/L (98-107); CREATININE 0.68 mg/dL (0.60-1.30); GLUCOSE,RANDOM 87 mg/dL (70-110); POTASSIUM 4.3 mmol/L (3.5-5.1); SODIUM SERUM 136 mmol/L (136-145); UREA NITROGEN, BLOOD 11 mg/dL (7-18)
[2023-07-26 09:39] LABS: CALCIUM, TOTAL 9.5 mg/dL (8.8-10.5); GLOMERULAR FILTR. RATE CALC > 60 mL/min (>60)
[2023-07-26 09:47] LABS: ALANINE AMINOTRANSFERASE 11 U/L (12-78); ALKALINE PHOSPHATASE 23 U/L (46-116); ASPARTATE AMINOTRANSFERASE 12 U/L (15-37); BILIRUBIN,TOTAL 0.3 mg/dL (0.1-1.0); TOTAL PROTEIN, SERUM 7.2 g/dL (6.4-8.2)
[2023-07-26 10:03] LABS: ALCOHOL, BLOOD (SERUM) < 3 mg/dL (0-10)
[2023-07-26 11:30] LABS: APPEARANCE,URINE HAZY (CLEAR); BILIRUBIN,URINE NEGATIVE (NEGATIVE); COLOR,URINE LIGHT YELLOW (YELLOW); GLUCOSE, URINE (UA) NEGATIVE (NEGATIVE); KETONES,URINE TRACE mg/dL (NEGATIVE); LEUKOCYTE ESTERASE ,URINE NEGATIVE (NEGATIVE); NITRATE,URINE POSITIVE (NEGATIVE); OCCULT BLOOD,URINE LARGE (NEGATIVE); PH,URINE 7.5 (5.0-8.0); PROTEIN,URINE NEGATIVE (NEGATIVE); SPECIFIC GRAVITIY, URINE 1.016 (1.003-1.030); UROBILINOGEN,URINE <=1.0 mg/dL (<=1.0)
[2023-07-26 11:31] LABS: PH,URINE DRUG SCREEN 7.5 (5.0-8.0)
[2023-07-26 11:40] LABS: AMPHET/METH SCREEN,URINE NEGATIVE (NEGATIVE); BARBITURATE SCREEN, URINE NEGATIVE (NEGATIVE); BENZODIAZEPINES SCREEN,URINE NEGATIVE (NEGATIVE); CANNABINOID SCREEN,URINE NEGATIVE (NEGATIVE); COCAINE SCREEN,URINE NEGATIVE (NEGATIVE); METHADONE SCREEN, URINE NEGATIVE (NEGATIVE); OPIATE SCREEN,URINE NEGATIVE (NEGATIVE); PHENCYCLIDINE SCREEN,URINE NEGATIVE (NEGATIVE)
[2023-07-26 11:41] LABS: ALCOHOL, URINE DRUG SCREEN NEGATIVE (NEGATIVE)
[2023-07-26 11:50] LABS: BACTERIA,URINE Moderate /HPF (None Seen); RBC,URINE None Seen /HPF (0-2); SQUAMOUS EPITHELIAL CELL,UR Few /LPF (None Seen); WBC,URINE None Seen /HPF (0-5)
[2023-07-26 12:45] VITALS: BP 110/63; PULSE 89; RESP 18; TEMP 97.9; O2SAT 97
[2023-07-26] MEDS ORDERED: NITROFURANTOIN MACROCRYSTAL 100 MG CAPSULE PO ONE (12:45)
[2023-07-26] MEDS ORDERED: NITROFURANTOIN MACROCRYSTAL 50 MG CAPSULE PO ONE ×2 (13:00→16:30)
[2023-07-26] MEDS: LORazepam 2 MG TABLET PO PRN (13:45)
[2023-07-26 20:21] VITALS: BP 107/73; PULSE 90; RESP 18; TEMP 98.1; O2SAT 96
[2023-07-27 01:55] VITALS: BP 117/72; PULSE 75; RESP 16; TEMP 96.9; O2SAT 95
[2023-07-27] MEDS: LORazepam 2 MG TABLET PO PRN (01:57)
[2023-07-27 09:12] VITALS: BP 102/66; PULSE 90; RESP 16; TEMP 97.8; O2SAT 96
[2023-07-27] MEDS: DIVALPROEX SODIUM 500 MG DR TABLET PO SCH ×2 (11:06→20:19)
[2023-07-27] MEDS: RisperiDONE 2 MG TABLET PO SCH ×2 (11:06→16:11)
[2023-07-27] MEDS: BENZTROPINE MESYLATE 1 MG TABLET PO SCH ×2 (12:04→16:11)
[2023-07-27] MEDS ORDERED: IBUPROFEN 400 MG TABLET PO PRN (15:45)
[2023-07-27] MEDS ORDERED: NICOTINE 14 MG/24 HOUR PATCH TD PRN (15:45)
[2023-07-27] MEDS ORDERED: PETROLATUM,WHITE 28 GM JELLY TP PRN (15:45)
[2023-07-27] MEDS ORDERED: ACETAMINOPHEN 325 MG TABLET PO PRN (15:45)
[2023-07-27] MEDS ORDERED: LOPERAMIDE HCL 2 MG CAPSULE PO PRN (15:45)
[2023-07-27] MEDS ORDERED: GuaiFENesin/D-METHORPHAN [SUGAR-FREE] 200-20MG/10 ML SYRUP UDCUP PO PRN (15:45)
[2023-07-27] MEDS ORDERED: DOCUSATE SODIUM 100 MG CAPSULE PO PRN (15:45)
[2023-07-27] MEDS ORDERED: ALBUTEROL SULFATE HFA 90 MCG/PUFF 8 GM INHALER IH PRN (15:45)
[2023-07-27] MEDS ORDERED: MAGNESIUM HYDROXIDE SUSPENSION 30 ML UDCUP PO PRN (15:45)
[2023-07-27] MEDS ORDERED: CloNIDine HCL 0.1 MG TABLET PO PRN (15:45)
[2023-07-27] MEDS ORDERED: MAG HYDROX/ALUMINUM HYD/SIMETH ES 30 ML SUSPENSION UDCUP PO PRN (15:45)
[2023-07-27] MEDS ORDERED: ONDANSETRON HCL 4 MG TABLET PO PRN (15:45)
[2023-07-27] MEDS: OLANZapine 2.5 MG TABLET PO SCH (16:11)
[2023-07-27 20:00] VITALS: BP 111/79; PULSE 70; RESP 16; TEMP 97.8; O2SAT 97
[2023-07-28 08:00] VITALS: BP 113/68; PULSE 72; RESP 17; TEMP 97.8; O2SAT 96
[2023-07-28 08:38] LABS: HEMOGLOBIN A1C 5.1 % (3.8-5.6)
[2023-07-28] MEDS: BENZTROPINE MESYLATE 1 MG TABLET PO SCH ×3 (08:39→16:09)
[2023-07-28] MEDS: DIVALPROEX SODIUM 500 MG DR TABLET PO SCH ×2 (08:39→20:04)
[2023-07-28] MEDS: OLANZapine 2.5 MG TABLET PO SCH ×2 (08:39→16:06)
[2023-07-28] MEDS: RisperiDONE 2 MG TABLET PO SCH ×2 (08:39→16:08)
[2023-07-28 08:45] LABS: THYROID STIMULATING HORMONE 1.18 uIU/mL (0.36-3.74)
[2023-07-28 09:09] LABS: CHOL/HDL RATIO 4.2 (3.9-5.7)
[2023-07-28 16:00] VITALS: BP 110/74; PULSE 96; RESP 17; TEMP 98.4; O2SAT 97
[2023-07-28 20:30] VITALS: BP 110/74; PULSE 96; RESP 18; TEMP 98.4; O2SAT 97
[2023-07-29] MEDS: OLANZapine 2.5 MG TABLET PO SCH ×2 (08:59→16:40)
[2023-07-29 09:00] VITALS: BP 112/64; PULSE 81; RESP 18; TEMP 97.8; O2SAT 98
[2023-07-29] MEDS: DIVALPROEX SODIUM 500 MG DR TABLET PO SCH ×3 (09:00→22:05)
[2023-07-29] MEDS: RisperiDONE 2 MG TABLET PO SCH ×2 (09:00→16:39)
[2023-07-29] MEDS: BENZTROPINE MESYLATE 1 MG TABLET PO SCH ×3 (09:00→16:39)
[2023-07-29] MEDS: LORazepam 2 MG TABLET PO PRN ×2 (13:16→17:17)
[2023-07-29 20:07] VITALS: BP 92/60; PULSE 77; RESP 17; TEMP 97.5
[2023-07-30] MEDS: DIVALPROEX SODIUM 500 MG DR TABLET PO SCH ×2 (08:26→20:35)
[2023-07-30] MEDS: RisperiDONE 2 MG TABLET PO SCH ×2 (08:26→16:31)
[2023-07-30] MEDS: BENZTROPINE MESYLATE 1 MG TABLET PO SCH ×3 (08:26→16:30)
[2023-07-30] MEDS: OLANZapine 2.5 MG TABLET PO SCH ×2 (08:26→16:30)
[2023-07-30 08:30] VITALS: BP 112/70; PULSE 78; RESP 17; TEMP 98.6; O2SAT 96
[2023-07-30 20:07] VITALS: BP 141/84; PULSE 93; RESP 20; TEMP 98; O2SAT 96
[2023-07-31] MEDS ORDERED: OLAN2.5T29 PO (05:23)
[2023-07-31] MEDS ORDERED: BENZ1TAB84 PO (05:23)
[2023-07-31] MEDS ORDERED: DIVA-112 PO (05:23)
[2023-07-31] MEDS ORDERED: RISP2TAB86 PO (05:23)
[2023-07-31 08:00] VITALS: BP 103/63; PULSE 80; RESP 18; TEMP 98.4; O2SAT 97
[2023-07-31] MEDS: BENZTROPINE MESYLATE 1 MG TABLET PO SCH (08:50)
[2023-07-31] MEDS: DIVALPROEX SODIUM 500 MG DR TABLET PO SCH (08:50)
[2023-07-31] MEDS: RisperiDONE 2 MG TABLET PO SCH (08:50)
[2023-07-31] MEDS: OLANZapine 2.5 MG TABLET PO SCH (08:50)
== END 2023-07-31 10:35 | disposition home or self-care (01) | DRG 885 ==
LOC: EMS 08:32 → B2X 10:58
PROVIDERS: ADMIT Psychiatry & Neurology Psychiatry; ATTEND Psychiatry & Neurology Psychiatry
DX: F25.1 Schizoaffective disorder, depressive type (principal); N39.0 Urinary tract infection, site not specified; R45.851 Suicidal ideations; Z20.822 Contact with and (suspected) exposure to COVID-19; F84.0 Autistic disorder; G47.00 Insomnia, unspecified; D72.819 Decreased white blood cell count, unspecified; Z79.899 Other long term (current) drug therapy; Z88.0 Allergy status to penicillin
CPT/HCPCS: 80053; 80061; 80307; 81001; 83036; 84443; 84703; 85025; 87086; 87186; 99285; G0480

== ENCOUNTER 2023-08-01 16:27 | Inpatient (IN) | payer MEDICARE, MEDICAID ==
[~2023-08-01] VITALS: Ht 160 cm; Wt 97.3 kg
[~2023-08-01 16:27] MED LIST changes: -RISP0.5T39 PO; -RISP2TAB45 PO; +RISP2TAB86 PO
[2023-08-01] MEDS ORDERED: HALOPERIDOL 5 MG TABLET PO PRN (17:30)
[2023-08-01] MEDS ORDERED: ZOLPIDEM TARTRATE 10 MG TABLET PO PRN (17:30)
[2023-08-01 17:41] LABS: GLUCOMETER DEV NAME(LOC) POC.BV; POC SARS-COV2 AG, FIA NEGATIVE (NEGATIVE)
[2023-08-01 21:15] VITALS: BP 100/62; PULSE 72; RESP 17; TEMP 97.9; O2SAT 96
[2023-08-02 08:21] LABS: BASOPHILS % (AUTO) 0.3 % (0.0-2.0); EOSINOPHILS % (AUTO) 0.7 % (1.0-6.0); HEMATOCRIT 35.6 % (36-46); HEMOGLOBIN 11.9 g/dL (12.0-16.0); LYMPHOCYTES # (AUTO) 1.6 K/uL (1.0-4.8); LYMPHOCYTES % (AUTO) 33.3 % (22.0-44.0); MEAN CORPUSCULAR HEMOGLOBIN 30.5 pg (26.0-34.0); MEAN CORPUSCULAR HGB CONC 33.4 G/dL (31.0-37.0); MEAN CORPUSCULAR VOLUME 91 fL (80-100); MONOCYTES # (AUTO) 0.4 K/uL (0.1-1.0); MONOCYTES % (AUTO) 9.3 % (2.0-9.0); NEUTROPHILS # (AUTO) 2.6 K/uL (1.8-7.7); NEUTROPHILS % (AUTO) 56.4 % (40.0-70.0); PLATELET COUNT (AUTO) 229 K/uL (150-450); WHITE BLOOD COUNT (AUTO) 4.7 K/uL (4.5-11.0)
[2023-08-02 08:55] VITALS: BP 108/63; PULSE 85; RESP 16; TEMP 96.6; O2SAT 98
[2023-08-02 09:01] LABS: HEMOGLOBIN A1C 5.2 % (3.8-5.6)
[2023-08-02 09:06] LABS: ALANINE AMINOTRANSFERASE 16 U/L (12-78); ALBUMIN 2.7 g/dL (3.4-5.0); ALKALINE PHOSPHATASE 30 U/L (46-116); ANION GAP 7 mmol/L (8-16); ASPARTATE AMINOTRANSFERASE 10 U/L (15-37); BILIRUBIN,TOTAL 0.3 mg/dL (0.1-1.0); CALCIUM, TOTAL 8.4 mg/dL (8.8-10.5); CARBON DIOXIDE 28 mmol/L (22-29); CHLORIDE 105 mmol/L (98-107); CHOL/HDL RATIO 4.5 (3.9-5.7); CHOLESTEROL 127 mg/dL (131-200); CREATININE 0.66 mg/dL (0.60-1.30); GLOMERULAR FILTR. RATE CALC > 60 mL/min (>60); GLUCOSE,RANDOM 88 mg/dL (70-110); HCG,QUANTITATIVE < 1 mIU/mL (0-6); HDL CHOLESTEROL 28 mg/dL (40-60); LDL CHOL (CALC.) 75 mg/dL (0-130); POTASSIUM 4.2 mmol/L (3.5-5.1); SODIUM SERUM 140 mmol/L (136-145); THYROID STIMULATING HORMONE 1.33 uIU/mL (0.36-3.74); TOTAL PROTEIN, SERUM 6.1 g/dL (6.4-8.2); TRIGLYCERIDES 122 mg/dL (15-150); UREA NITROGEN, BLOOD 9 mg/dL (7-18)
[2023-08-02] MEDS: RisperiDONE 2 MG TABLET PO SCH ×2 (10:50→20:38)
[2023-08-02] MEDS: BENZTROPINE MESYLATE 1 MG TABLET PO SCH ×3 (10:50→20:38)
[2023-08-02] MEDS: DIVALPROEX SODIUM 500 MG DR TABLET PO SCH ×2 (10:50→20:38)
[2023-08-02] MEDS: DOCUSATE SODIUM 100 MG CAPSULE PO SCH (16:36)
[2023-08-02 20:30] VITALS: BP 107/71; PULSE 72; RESP 18; TEMP 98.2; O2SAT 98
[2023-08-03 08:01] VITALS: BP 105/61; PULSE 76; RESP 18; TEMP 97.6; O2SAT 96
[2023-08-03] MEDS: DIVALPROEX SODIUM 500 MG DR TABLET PO SCH ×2 (09:12→20:56)
[2023-08-03] MEDS: BENZTROPINE MESYLATE 1 MG TABLET PO SCH ×3 (09:12→20:56)
[2023-08-03] MEDS: DOCUSATE SODIUM 100 MG CAPSULE PO SCH ×2 (09:12→16:06)
[2023-08-03] MEDS: RisperiDONE 2 MG TABLET PO SCH ×2 (09:12→20:56)
[2023-08-03] MEDS: LORazepam 2 MG TABLET PO PRN (15:18)
[2023-08-03 21:03] VITALS: BP 92/59; PULSE 77; RESP 16; TEMP 98.8; O2SAT 100
[2023-08-04] MEDS: BENZTROPINE MESYLATE 1 MG TABLET PO SCH ×3 (08:37→20:05)
[2023-08-04] MEDS: DIVALPROEX SODIUM 500 MG DR TABLET PO SCH ×2 (08:37→20:05)
[2023-08-04] MEDS: RisperiDONE 2 MG TABLET PO SCH ×2 (08:37→20:05)
[2023-08-04] MEDS: DOCUSATE SODIUM 100 MG CAPSULE PO SCH ×2 (08:37→16:08)
[2023-08-04 08:38] VITALS: BP 91/58; PULSE 90; RESP 18; TEMP 97.3; O2SAT 98
[2023-08-04 21:04] VITALS: BP 104/68; PULSE 88; RESP 19; TEMP 98.1; O2SAT 98
[2023-08-05 08:07] VITALS: BP 102/64; PULSE 80; RESP 18; TEMP 97.5; O2SAT 96
[2023-08-05] MEDS: LORazepam 2 MG TABLET PO PRN (09:44)
[2023-08-05] MEDS: RisperiDONE 2 MG TABLET PO SCH ×2 (09:45→20:00)
[2023-08-05] MEDS: BENZTROPINE MESYLATE 1 MG TABLET PO SCH ×3 (09:45→20:00)
[2023-08-05] MEDS: DOCUSATE SODIUM 100 MG CAPSULE PO SCH ×2 (09:45→16:21)
[2023-08-05] MEDS: DIVALPROEX SODIUM 500 MG DR TABLET PO SCH ×2 (09:45→20:00)
[2023-08-05] MEDS ORDERED: LEVO1TAB13 PO (17:58)
[2023-08-05 20:39] VITALS: BP 90/60; PULSE 97; RESP 18; TEMP 97.4; O2SAT 96
[2023-08-06] MEDS: DIVALPROEX SODIUM 500 MG DR TABLET PO SCH (09:24)
[2023-08-06] MEDS: DOCUSATE SODIUM 100 MG CAPSULE PO SCH (09:24)
[2023-08-06] MEDS: RisperiDONE 2 MG TABLET PO SCH (09:24)
[2023-08-06] MEDS: BENZTROPINE MESYLATE 1 MG TABLET PO SCH (09:24)
[2023-08-06] MEDS ORDERED: DOCU-385 PO (11:01)
[2023-08-06] MEDS ORDERED: RISP2TAB86 PO (11:01)
[2023-08-06] MEDS ORDERED: BENZ1TAB84 PO (11:01)
[2023-08-06] MEDS ORDERED: DIVA-112 PO (11:01)
== END 2023-08-06 14:00 | disposition home or self-care (01) | DRG 885 ==
LOC: B2X 17:29
PROVIDERS: ADMIT Psychiatry & Neurology Psychiatry; ATTEND Psychiatry & Neurology Psychiatry
DX: F25.1 Schizoaffective disorder, depressive type (principal); N39.0 Urinary tract infection, site not specified; R45.851 Suicidal ideations; Z20.822 Contact with and (suspected) exposure to COVID-19; D64.9 Anemia, unspecified; J45.909 Unspecified asthma, uncomplicated; G47.00 Insomnia, unspecified; F84.0 Autistic disorder; Z79.899 Other long term (current) drug therapy; Z88.0 Allergy status to penicillin
CPT/HCPCS: 80053; 80061; 83036; 84439; 84443; 84702; 85025; 87081

== ENCOUNTER 2023-12-17 08:14 | Emergency (ER) | payer MEDICARE, OTHER ==
[~2023-12-17] VITALS: Ht 160 cm; Wt 96.8 kg
[~2023-12-17 08:14] MED LIST changes: -BENZ-227 PO; -LEVO1TAB13 PO; -OLAN2.5T29 PO; -ONDA-104 PO; +RISP-32 PO; -RISP2TAB86 PO
[2023-12-17 08:47] VITALS: TEMP 98.5
[2023-12-17 09:12] LABS: BASOPHILS % (AUTO) 0.7 % (0.0-2.0); EOSINOPHILS % (AUTO) 1.9 % (1.0-6.0); HEMATOCRIT 37.4 % (36-46); HEMOGLOBIN 12.8 g/dL (12.0-16.0); LYMPHOCYTES # (AUTO) 1.3 K/uL (1.0-4.8); LYMPHOCYTES % (AUTO) 36.3 % (22.0-44.0); MEAN CORPUSCULAR HEMOGLOBIN 30.6 pg (26.0-34.0); MEAN CORPUSCULAR HGB CONC 34.2 G/dL (31.0-37.0); MEAN CORPUSCULAR VOLUME 89 fL (80-100); MONOCYTES # (AUTO) 0.4 K/uL (0.1-1.0); MONOCYTES % (AUTO) 10.7 % (2.0-9.0); NEUTROPHILS # (AUTO) 1.8 K/uL (1.8-7.7); NEUTROPHILS % (AUTO) 50.4 % (40.0-70.0); PLATELET COUNT (AUTO) 148 K/uL (150-450); RED BLOOD CELL COUNT(AUTO) 4.19 MIL/uL (4.00-5.20); RED CELL DISTRIBUTION WIDTH 13.6 % (11.5-14.5); WHITE BLOOD COUNT (AUTO) 3.5 K/uL (4.5-11.0)
[2023-12-17 09:20] LABS: ANION GAP 11 mmol/L (8-16); CALCIUM, TOTAL 8.8 mg/dL (8.8-10.5); CARBON DIOXIDE 23 mmol/L (22-29); CHLORIDE 103 mmol/L (98-107); CREATININE 0.63 mg/dL (0.60-1.30); GLOMERULAR FILTR. RATE CALC > 60 mL/min (>60); GLUCOSE,RANDOM 97 mg/dL (70-110); POTASSIUM 4.3 mmol/L (3.5-5.1); SODIUM SERUM 137 mmol/L (136-145); UREA NITROGEN, BLOOD 9 mg/dL (7-18)
[2023-12-17 09:26] LABS: ALANINE AMINOTRANSFERASE 9 U/L (12-78); ALBUMIN 2.9 g/dL (3.4-5.0); ALKALINE PHOSPHATASE 22 U/L (46-116); ASPARTATE AMINOTRANSFERASE 11 U/L (15-37); BILIRUBIN,TOTAL 0.3 mg/dL (0.1-1.0); TOTAL PROTEIN, SERUM 6.9 g/dL (6.4-8.2)
[2023-12-17 09:28] LABS: ALCOHOL, BLOOD (SERUM) < 3 mg/dL (0-10)
[2023-12-17 09:31] LABS: COVID AG,FIA SOURCE NASAL SWAB
[2023-12-17 09:53] LABS: SARS-COV2 (COVID) ANTIGEN,FIA Negative (Negative)
[2023-12-17 09:54] LABS: INFLUENZA TYPE A NEGATIVE FOR TYPE A (NEGATIVE); INFLUENZA TYPE B NEGATIVE FOR TYPE B (NEGATIVE)
[2023-12-17] MEDS ORDERED: BENZ-227 PO (10:12)
[2023-12-17 10:52] LABS: ALCOHOL, URINE DRUG SCREEN NEGATIVE (NEGATIVE); AMPHET/METH SCREEN,URINE NEGATIVE (NEGATIVE); BARBITURATE SCREEN, URINE NEGATIVE (NEGATIVE); BENZODIAZEPINES SCREEN,URINE NEGATIVE (NEGATIVE); CANNABINOID SCREEN,URINE NEGATIVE (NEGATIVE); COCAINE SCREEN,URINE NEGATIVE (NEGATIVE); METHADONE SCREEN, URINE NEGATIVE (NEGATIVE); OPIATE SCREEN,URINE NEGATIVE (NEGATIVE); PHENCYCLIDINE SCREEN,URINE NEGATIVE (NEGATIVE)
[2023-12-17 11:47] VITALS: BP 119/72; PULSE 73; RESP 16
== END 2023-12-17 11:50 | disposition home or self-care (01) ==
LOC: EMS 08:14
DX: J06.9 Acute upper respiratory infection, unspecified (principal); F31.9 Bipolar disorder, unspecified; F20.9 Schizophrenia, unspecified; Z88.0 Allergy status to penicillin; Z20.822 Contact with and (suspected) exposure to COVID-19
CPT/HCPCS: 99283; 87426; 80053; 85025; 87804; 36415; 80307; G0480